=== PATIENT | female | born 1935 | race Caucasian/White ===

== ENCOUNTER 2017-04-16 11:24 | Day surgery (SDC) | payer MEDICARE, OTHER ==
[2017-04-15 09:08] VITALS: BMI 22.1
[2017-04-16] MEDS ORDERED: Propofol 500 MG/50 ML VIAL ONE (12:19)
--- OUTSIDE RECORDS SUMMARY | 2017-04-16 12:19 | XMS | Clinical Summary ---
:1935 Author Organization [facility] Address [address] [place] [address] Phone Care Team Providers Name Role Phone , Primary Care Provider Unavailable Allergies Active Allergy Reactions Severity Noted Date Comments Amoxicillin-Pot Clavulanate Rash Low 01/09/2017 Sulfamethoxazole-Trimethoprim Rash Low 01/09/2017 Ciprofloxacin Rash Low 01/09/2017 Miscellaneous Medical Supply Rash Low 01/09/2017 Surgical tape Current Medications Prescription Sig. Disp. Refills Start Date End Date Status amLODIPine (NORVASC) 5 MG Take 5 mg by mouth Active tablet daily. propranolol (INDERAL) 10 Take 10 mg by mouth Active MG tablet 2 (two) times daily. cloNIDine HCl (CATAPRES) Take 0.1 mg by Active 0.1 MG tablet mouth nightly. sucralfate (CARAFATE) 100 Take 1 g by mouth Active mg/mL suspension as needed. anastrozole (ARIMIDEX) 1 Take 1 mg by mouth Active mg tablet daily. alendronate (FOSAMAX) 35 Take 35 mg by mouth Active MG tablet every 7 days Take in the morning with a full glass of water, on an empty stomach, and do not take anything else by mouth or lie down for the next 30 min. . cyanocobalamin (VITAMIN Take 1,000 mcg by Active B-12) 1000 MCG tablet mouth daily. levothyroxine (SYNTHROID, Take 25 mcg by Active LEVOTHROID) 25 MCG tablet mouth Every morning on an empty stomach. Active Problems Problem Noted Date Bezoar 01/09/2017 RUQ pain 01/09/2017 Abnormal finding on imaging 01/09/2017 Gastric mass 01/09/2017 Encounters Date Type Specialty Care Team Description 02/06/2017 Procedure Pass Gastroenterology from Last 3 Months Social History Tobacco Use Types Packs/Day Years Used Date Never Smoker Alcohol Use Drinks/Week oz/Week Comments No Sex Assigned at Date Recorded Not on file Last Filed Vital Signs Vital Sign Reading Time Taken Blood Pressure 140/72 01/13/2017 6:00 PM CDT Pulse 71 01/13/2017 6:00 PM CDT Temperature 36.1 C (96.9 F) 01/13/2017 6:00 PM CDT Respiratory Rate 18 01/13/2017 6:00 PM CDT Oxygen Saturation 96% 01/13/2017 6:00 PM CDT Inhaled Oxygen Concentration - - Weight 71.3 kg (157 lb 1.6 oz) 01/09/2017 8:40 PM CDT Height 176.8 cm (5' 9.6") 01/09/2017 8:40 PM CDT Body Mass Index 22.8 01/09/2017 8:40 PM CDT Plan of Treatment Not on file Results Not on filefrom Last 3 Months
[2017-04-16 12:40] LABS: Hematocrit 37.3 % (36.0-47.0); Red Blood Cell (RBC) Count 4.01 mill/uL (4.20-5.40); White Blood Cell (WBC) Count 4.8 thou/uL (4.8-10.8)
[2017-04-16] MEDS ORDERED: Bupivacaine HCl 0.5%/Epinephrine 1:200,000/PF 30 ml Vial ONE (12:46)
[2017-04-16 12:54] LABS: Band 1 % (5-11); Neutrophil 78 % (42-75)
[2017-04-16] MEDS ORDERED: Levofloxacin 500 mg/D5W 100 ml Premix Bag ONE (13:09)
[2017-04-16] MEDS ORDERED: Fentanyl 100 MCG/2 ML VIAL ONE (13:22)
[2017-04-16] MEDS ORDERED: Propofol 200 MG/20 ML VIAL ONE (13:25)
--- NOTE | 2017-04-16 15:46 | OP ---
DATE OF PROCEDURE: 04/16/2017 PREOPERATIVE DIAGNOSIS: Metastatic lobular breast carcinoma to the abdomen. POSTOPERATIVE DIAGNOSIS: Metastatic lobular breast carcinoma to the abdomen. PROCEDURE PERFORMED: Tunneled central line with subcutaneous port (MediPort). CT injectable. SURGEON: Dr. De Guzman. ANESTHESIA: General. ESTIMATED BLOOD LOSS: Minimal. COMPLICATIONS: None. SPECIMEN: None. TECHNIQUE: The patient was taken to the operating room and placed on supine table. After sedation was obtained, bilateral neck and chest were prepped and draped in a sterile fashion. Local anesthet ic infiltrated over the right internal jugular vein. Internal jugular vein cannulated using a 22-ga uge finder needle followed by a Seldinger needle. Wire was passed into the superior vena cava under fluoroscopic guidance. A small eva was made at the wire entrance site. A separate 3-cm incision was made in the right upper chest below the clavicle. Subcutaneous pocket made below the lower inci александр. Tubing for the MediPort tunneled from the inferior to the superior incision. Introducer baker th was placed over the wire into the superior vena cava under fluoroscopic guidance. The dilator an d wire were removed. The end of the catheter threaded into the sheath and the sheath is peeled away . The tip of the catheter was at the atriocaval junction. MediPort tubing is cut to fit the MediPo rt at the lower incision, connected to the MediPort. The MediPort sewn to the chest wall in the sub cutaneous pocket using Prolene. MediPort flushes and draws blood without difficulty. It is flushed with a heparin flush. All wounds are irrigated and closed using 3-0 Vicryl, 4-0 Monocryl, and Derm abond. The patient was en route to recovery in stable condition. All instrument counts, needle cou nts, and lap counts were correct.
--- NOTE | 2017-04-16 16:32 | RAD ---
ONE VIEW CHEST: Comparison: 04-03-17 History: Evaluate Mediport placement. FINDINGS: Portable upright chest demonstrates a right sided Mediport catheter with the distal tip presumed to be in the region of the superior vena cava. No evidence for pneumothorax. There is atherosclerosis and elongation of the aorta. Normal cardiac silhouette. Pulmonary vessels a nd hilum are normal. Right costophrenic angle and left costophrenic angle are blunting. Patchy inter stitial opacity lung base due to chronic change. There is hyperinflation. No osseous abnormality. IMPRESSION: 1. Right sided Mediport catheter as detailed. No definite pneumothorax. 2. Chronic change in the lung parenchyma. 3. COPD/hyperinflation. POS: [facility]
== END 2017-04-16 15:35 | disposition home or self-care (01) ==
LOC: SDC 11:24
PROVIDERS: ATTEND Surgery
PROC: 0JH63XZ Insertion of Tunneled Vascular Access Device into Chest Subcutaneous Tissue and Fascia, Percutaneous Approach (ICD-10-PCS; principal; 2017-04-16)
DX: C50.912 Malignant neoplasm of unspecified site of left female breast (principal); C79.89 Secondary malignant neoplasm of other specified sites; K31.1 Adult hypertrophic pyloric stenosis; F32.9 Major depressive disorder, single episode, unspecified; R94.5 Abnormal results of liver function studies; Z90.12 Acquired absence of left breast and nipple; Z98.890 Other specified postprocedural states; M06.9 Rheumatoid arthritis, unspecified; I48.91 Unspecified atrial fibrillation; H91.93 Unspecified hearing loss, bilateral; Z79.52 Long term (current) use of systemic steroids; Z79.899 Other long term (current) drug therapy; Z88.0 Allergy status to penicillin; Z88.8 Allergy status to other drugs, medicaments and biological substances; Z88.1 Allergy status to other antibiotic agents; Z88.2 Allergy status to sulfonamides; Z91.048 Other nonmedicinal substance allergy status; Z97.4 Presence of external hearing-aid; Z90.49 Acquired absence of other specified parts of digestive tract; Z90.722 Acquired absence of ovaries, bilateral; Z90.79 Acquired absence of other genital organ(s); Z90.710 Acquired absence of both cervix and uterus; Z98.49 Cataract extraction status, unspecified eye; Z87.440 Personal history of urinary (tract) infections; Z92.3 Personal history of irradiation; Z83.3 Family history of diabetes mellitus; Z80.0 Family history of malignant neoplasm of digestive organs
CPT/HCPCS: 36561; 71010; 85025; C1788; J0670; J1642; J1956; J2704; J3010

== ENCOUNTER 2017-05-10 12:49 | Inpatient (IN) | payer MEDICARE, OTHER ==
[~2017-05-10 12:49] MED LIST: ISOVUE-370 76%-LOCM 1 ML ONE
[2017-05-10 13:28] LABS: #Lymphocytes 0.5 thou/uL (1.20-3.40); #Monocytes 0.2 thou/uL (0.11-0.59); #Neutrophils 4.1 thou/uL (1.40-6.50); %Eosinophils 0.2 % (0.0-10.0); %Lymphocytes 10.9 % (21.0-51.0); %Monocytes 3.7 % (0.0-10.0); Hematocrit 33.6 % (36.0-47.0); Mean Platelet Volume 7.5 fL (7.4-10.4); Red Blood Cell (RBC) Count 3.56 mill/uL (4.20-5.40); White Blood Cell (WBC) Count 4.8 thou/uL (4.8-10.8)
[2017-05-10 13:50] LABS: ALT (SGPT) 61 U/L (8-55); AST (SGOT) 23 U/L (5-34); Alkaline Phosphatase 125 U/L (40-150); Anion Gap 13 mmol/L (10-20); BUN (Urea Nitrogen) 19 mg/dL (9.8-20.1); Bilirubin, Total 0.6 mg/dL (0.2-1.2); Calc. Creatinine Clearance 0 mL/min (70-130); Carbon Dioxide 26 mmol/L (23-31); Chloride 93 mmol/L (98-107); Estimated GFR-MDRD Greater than 90; Globulin 2.1 g/dL (2.4-3.5); Protein, Total 5.1 g/dL (6.0-8.3)
[2017-05-10 14:01] LABS: Troponin I 0.012 ng/mL (< 0.028)
--- NOTE | 2017-05-10 14:14 | RAD ---
CHEST 1 VIEW: HISTORY: Syncope. Chest pain. COMPARISON: 04/16/17. FINDINGS: Cardiac silhouette is magnified by projection. Pulmonary vasculature is unremarkable. Mediastinum is midline. Right-sided Port-A-Cath remains in place. There is no confluent airspace consolidation or evidence of pneumothorax. packaging assembler leads overlie the chest. IMPRESSION: Chronic-type findings are stable. POS: [facility]
[2017-05-10 14:52] LABS: Bilirubin Negative (Negative); Blood, Urine Negative (Negative); Glucose, Urine (Dipstick) Negative (Negative); Ketone, Urine Negative (Negative); Nitrite Negative (Negative); Protein, Urine (Dipstick) Trace mg/dL (Neg-Trace); Urobilinogen 0.2 mg/dL (0.2-1.0)
[2017-05-10 14:54] LABS: Bacteria/HPF 4+ HPF (None Seen); Hyaline Casts/LPF 4-6 HYALINE CAST LPF (0-3 Hyaline)
--- NOTE | 2017-05-10 15:08 | CT ---
CT HEAD NONCONTRAST: HISTORY: Syncope. FINDINGS: There is no evidence of acute intracranial hemorrhage or infarct. Chronic ischemic small-vessel dis ease is apparent within the periventricular white matter of each cerebral hemisphere and the basal g anglia. There is no mass effect or shift of midline structures. The ventricles appear normal in si ze, shape, and position. IMPRESSION: No acute intracranial abnormalities are demonstrated on noncontrast CT head. POS: [facility]
[2017-05-10 15:09] LABS: RBC/HPF 0-3 HPF (0-3)
[2017-05-10 15:10] LABS: Renal Epithelial None Seen HPF (0-3); Transitional Epithelial NONE SEEN HPF (0-3); Yeast-All Forms None Seen HPF (None Seen)
--- NOTE | 2017-05-10 15:14 | CT ---
CT ARTERIOGRAM CHEST WITH IV COTNRAST AND 3D MIP IMAGING: HISTORY: Syncope. FINDINGS: There is good contrast opacification of the pulmonary arteries and thoracic aorta with normal branch ing of the great vessels. Mild atelectasis is present within each lung. Within the partially visua lized upper abdomen, a small amount of free fluid is apparent. There are degenerative changes of th e thoracic spine. IMPRESSION: 1. No CT evidence of pulmonary embolus. 2. Free fluid within the abdomen appears to have increased since the 02/04/17 CT exam. POS: [facility]
[2017-05-10] MEDS ORDERED: Metoprolol Tartrate 50 MG TAB ONE (15:40)
[2017-05-10] MEDS ORDERED: Sodium Chloride 0.9% 100 ML ONE (15:40)
[2017-05-10] MEDS ORDERED: cefTRIAXone\\ROCEPHIN 1 GM VIAL ONE (15:40)
--- NOTE | 2017-05-10 19:09 | HP ---
CHIEF COMPLAINT: Near syncopal episode. HISTORY OF PRESENT ILLNESS: This is an 82-year-old pleasant lady who was recently discharged from [facility] after being treated for atrial fibrillation with RVR who comes back to the hospital with near syncopal episode. She never lost consciousness. There was no chest pain, shortness of breath before the episode. No seizure-like activity. The patient got up to go to the bathroom, but felt extremely weak and fell to the door, her daughter helped , and she called the paramedics as she could not do so. The patient of note has breast cancer status post surgery, treated with radiation and is currently on chemotherapy every Friday. She denies any headache, slurred speech. The darren ent's family was concerned and hence she was brought to the hospital for evaluation and treatment. The patient states that she has chemotherapy on Friday and feels extremely weak on Friday, but T , Friday, she was doing well till this episode happened today at around 12:00 p.m. PAST MEDICAL HISTORY: Significant for breast cancer, on chemotherapy, status post radiation; hyperl ipidemia, hypertension, some arthritis, atrial fibrillation. Dr. Landin is the aerial lineman. Dr Christos Serra is the primary care physician. PAST SURGICAL HISTORY: Significant for recent MediPort placement during the last month in the month of March I believe, PICC line removal, history of mastectomy, left shoulder surgery. SOCIAL HISTORY: Does not smoke, drink or do recreational drugs. FAMILY HISTORY: Negative for diabetes and hypertension. MEDICATIONS: Please see MAR. ALLERGIES: Include ADHESIVE, AMOXICILLIN, AUGMENTIN, CIPRO, CIPROFLOXACIN, SULFA, and TRIMETHOPRIM. REVIEW OF SYSTEMS: Significant for weakness, otherwise no fever, no chills, no headache, no appetit e, no hearing loss, no latencies. No cough, no chest pain, diarrhea, dysuria or polyuria. No memor y or mood changes. No neck pain. PHYSICAL EXAMINATION: VITAL SIGNS: Blood pressure is 103/72, heart rate is 105, temperature 99.4, afebrile, breathing at 18 breaths per minute. GENERAL: Patient is lying in bed in no apparent distress. HEENT: Atraumatic and normocephalic. Pupils equal, round, react to light. Extraocular muscles int act. Mucous membranes moist. NECK: Supple. No JVD. CHEST: Breath sounds are noted. There are no rales or rhonchi. HEART: S1, S2 normal. Irregularly irregular rhythm. ABDOMEN: Soft, obese. EXTREMITIES: No cyanosis, clubbing, edema. Distal pulses present. NEUROLOGIC: Grossly nonfocal, reflexes present and normal sensations. LABORATORY DATA: CT angiogram ruled out PE. CT head was negative. UA showed 4-6 WBCs, nitrite was negative. WBC count was 4.8, creatinine 11, potassium is 3.5, creatinine is 0.6, hemoglobin was 11 , glucose was 171. ASSESSMENT AND PLAN: 1. Near syncopal episode with generalized weakness, possible causes could be side effects of blood pressure medications, we will do orthostatic vitals. 2. The patient has not been on anticoagulation because of nosebleeds in the face of atrial fibrilla tion. We will do MRI to rule out any CORPORATE SECRETARY causes. We will consult Cardiology to optimize medication s for the heart. 3. Atrial fibrillation. We will monitor her this hospital stay. 4. Hyperlipidemia, stable. 5. Hypertension, stable. 6. Hyponatremia. We will gently hydrate the patient, moderate malnutrition. We will encourage the patient to eat more. 7. Hypothyroidism was stable. 8. Breast cancer status post radiation and surgery, on chemotherapy. We will continue dexamethason e from the home medications. We will hold Cymbalta. We will hold citalopram for now. 9. Sequential compression devices for deep venous thrombosis prophylaxis. I will work with consult alonso for further caring for the patient.
[2017-05-10] MEDS ORDERED: Calcium Carbonate 500 MG ChewTAB PO PRN (20:15)
[2017-05-10] MEDS ORDERED: Ondansetron HCl/PF 4 MG/2 ML Vial IVP PRN (20:15)
[2017-05-10] MEDS: Docusate 100 MG CAP PO SCH (21:17)
[2017-05-10] MEDS: Sodium Chloride 0.9% 1,000 ML IV SCH (21:23)
[2017-05-11] MEDS: Levothyroxine Sodium 25 MCG TAB PO SCH (06:03)
[2017-05-11 07:09] LABS: Anion Gap 7 mmol/L (10-20); BUN (Urea Nitrogen) 11 mg/dL (9.8-20.1); BUN/Creatinine Ratio 23.91; Calc. Creatinine Clearance 101 mL/min (70-130); Calcium 7.4 mg/dL (7.8-10.44); Carbon Dioxide 27 mmol/L (23-31); Chloride 100 mmol/L (98-107); Estimated GFR-MDRD Greater than 90; Phosphorus 2.2 mg/dL (2.3-4.7)
[2017-05-11] MEDS: Dexamethasone 4 MG TAB PO SCH (08:42)
[2017-05-11] MEDS: Docusate 100 MG CAP PO SCH ×2 (08:42→19:29)
[2017-05-11] MEDS ORDERED: FLU VACC TS2017-18 (>65YR) 0.5 ML SYRINGE IM ONE (09:00)
[2017-05-11] MEDS: Enoxaparin Sodium 30 MG/0.3 ML SYRINGE SC SCH (10:13)
[2017-05-11] MEDS: Sodium Chloride 0.9% 1,000 ML IV SCH (11:09)
[2017-05-11] MEDS ORDERED: Potassium Chloride 20 MEQ TAB PO SCH (11:15)
--- NOTE | 2017-05-11 11:18 | MRI ---
PRE AND POSTCONTRAST ENHANCED MRI IMAGES OF BRAIN: DATE: 05/11/17. HISTORY: Syncope. The patient has a history of lung cancer. COMPARISON: Comparison is made to a previous exam from August 28, 2016. FINDINGS: Multiplanar, multisequence pre- and postcontrast-enhanced MRI images of the brain are obtained. Images demonstrate some diffuse cortical atrophy and deep white matter ischemic changes. Small basa l ganglion areas of lacunar infarction seen. These appear to be old. No acute infarctions or abnor malities seen. No evidence of areas of diffusion restriction seen. No evidence of abnormal intracr anial contrast enhancement seen. IMPRESSION: Stable pre- and postcontrast-enhanced MRI images of the brain. POS: [facility]
--- NOTE | 2017-05-11 16:55 | CON ---
CARDIOLOGY CONSULTATION NOTE DATE OF CONSULTATION: 05/11/2017 INDICATION FOR CONSULTATION: An 82-year-old female with lightheadedness and near syncopal episode w ith history of atrial fibrillation. HISTORY OF PRESENT ILLNESS: This is a very pleasant 82-year-old female who has been followed by Dr. Landin, was recently seen in the hospital and treated for atrial fibrillation with rapid ventric ular response. She came back to the hospital again and was noted to have a near syncopal episode, w hich she says actually just became very lightheaded and lost her balance and then fell. She did not lose consciousness. She has had no syncopal episodes. She denies any significant symptoms prior t o the event. She felt just somewhat weak. She has had some recent chemotherapy and she says she cantrell s extremely been feeling very weak since that time, but has had no complaints of significant shortne ss of breath or chest pain. Monitor since being here the telemetry as well as her EKG shows atrial fibrillation with rapid ventricular response. Heart rate is somewhat better controlled in the 90s. PAST MEDICAL HISTORY: Significant for breast cancer for which she is taking chemotherapy and she cantrell s also had radiation therapy. She has hypertension, arthritis and hyperlipidemia. She has had a hi story of atrial fibrillation in the past. This is not a new finding for her. ALLERGIES: She is allergic to ADHESIVE, AMOXICILLIN, AUGMENTIN, CIPROFLOXACIN, SULFA and TRIMETHOPR IM. FAMILY HISTORY: Unremarkable for any early heart disease. SOCIAL HISTORY: There is a history of alcohol or tobacco abuse. MEDICATIONS PRIOR TO ADMISSION: Included a lidocaine patch, Tirosint, B12, Centrum Silver, vitamins , cranberry probiotic , alendronate 180 mg, citalopram, dexamethasone, calcium, hydrocodone, hydroco done/APAP, Zofran and vitamin D3 as well as metoprolol. REVIEW OF SYSTEMS: She mainly complained of weakness and occasional lightheadedness, but she denied any chest pain or significant shortness of breath. She had no GI complaints until the day she had some mild diarrhea after having lunch today. She had no complaints. She had no lower extremity complaints. She was found; however, to have a major urinary tract infection according to the UA, bu t did not have any symptoms associated with that. PHYSICAL EXAMINATION: GENERAL: Reveals an elderly and somewhat ill-appearing female who is in no acute distress. VITAL SIGNS: Her blood pressure is 119/76, heart rate is 91 and irregular and respiratory rate is 1 6. She is afebrile. HEENT: Shows the head to be normocephalic and atraumatic. Carotid pulses are present. I did not h ear any bruits. CHEST: Clear to auscultation without rales, rhonchi or wheezing. CARDIOVASCULAR: She has an irregularly irregular rhythm. I did not hear any significant murmurs. ABDOMEN: Soft and nontender with positive bowel sounds. No organomegaly or masses are noted. EXTREMITIES: Showed no clubbing, cyanosis or edema. Pedal pulses are present, but seemed to be connie ewhat decreased. NEUROLOGIC: The patient is intact. She did not get out of bed. She does appear to be significantl y fatigued. SKIN: Warm and dry at this time. LABORATORY DATA: Shows a creatinine of 0.46. WBC of 4.8, hemoglobin 11.4. Potassium is 3.3. Urin karen tract showed 4+ bacteria. IMPRESSION: 1. Atrial fibrillation with rapid ventricular response. She will continue her medications for rate control. She has not been on any anticoagulation or any oral anticoagulation as far as the atrial fibrillation is concerned. It was suggested previously that she stay on aspirin. She has had some problems with chronic nosebleeds in the past. 2. Possible near syncopal episode, but the patient denied to me after further questioning that she did not feel that lightheaded, she just lost her balance and then fell to the floor, but did not hav e any syncopal episodes. 3. Breast cancer for which she is undergoing chemotherapy. [facility] 4. Hyperlipidemia. She will remain on her medications and stable. 5. Hypertension. This also was under very good control at this time. 6. Hypothyroidism. She will continue her medications. At this time, from a cardiac standpoint, adeel davenport is doing very well. We will monitor her to see whether or not she has any significant tachycardia , more so than usual with her atrial fibrillation or if she has any pauses, it would indicate possib le underlying sick sinus syndrome.
--- NOTE | 2017-05-11 17:17 | PDOC.PN ---
- Subjective Encounter Start Date: 05/11/17 Encounter Start Time: 17:15 Patient seen and examined. No new complaints. No overnight events - Objective MAR Reviewed: Yes Vital Signs & Weight: Vital Signs (12 hours) Temp Pulse Resp BP BP BP BP 05/11/17 16:00 97.5 F L 97 16 119/77 109/65 112/73 05/11/17 12:00 97.4 F L 91 16 119/74 05/11/17 08:00 97.3 F L 96 16 128/74 Pulse Ox 05/11/17 16:00 93 L 05/11/17 12:00 92 L 05/11/17 08:00 97 Weight Admit Weight 147 lb Weight 147 lb I&O: 05/10/17 05/11/17 05/12/17 06:59 06:59 06:59 Intake Total 885 Balance 885 Result Diagrams: 05/10/17 13:20 05/11/17 06:01 Phys Exam - Physical Examination Constitutional: NAD HEENT: PERRLA Neck: no JVD Respiratory: no rales Cardiovascular: irregular Gastrointestinal: no distention Musculoskeletal: pulses present Neurological: moves all 4 limbs Psychiatric: A&O x 3 Dx/Plan (1) Physical deconditioning Code(s): R53.81 - OTHER MALAISE Status: Acute (2) Afib Code(s): I48.91 - UNSPECIFIED ATRIAL FIBRILLATION Status: Acute Comment: no anticoaulation due to nose bleeds (3) Hypothyroidism Code(s): E03.9 - HYPOTHYROIDISM, UNSPECIFIED Status: Acute (4) Metastatic breast cancer Code(s): C50.919 - MALIGNANT NEOPLASM OF UNSP SITE OF UNSPECIFIED FEMALE BREAST Status: Acute (5) Near syncope Status: Acute - Plan * monitor tele * pt/ot * cont current meds
[2017-05-12] MEDS: Sodium Chloride 0.9% 1,000 ML IV SCH (03:00)
[2017-05-12] MEDS: Levothyroxine Sodium 25 MCG TAB PO SCH (05:25)
[2017-05-12 06:13] LABS: Anion Gap 10 mmol/L (10-20); BUN (Urea Nitrogen) 11 mg/dL (9.8-20.1); Calc. Creatinine Clearance 99 mL/min (70-130); Calcium 7.7 mg/dL (7.8-10.44); Carbon Dioxide 26 mmol/L (23-31); Chloride 101 mmol/L (98-107); Estimated GFR-MDRD Greater than 90
[2017-05-12 06:14] LABS: Phosphorus 1.9 mg/dL (2.3-4.7)
[2017-05-12] MEDS: Dexamethasone 4 MG TAB PO SCH (09:01)
[2017-05-12] MEDS: Docusate 100 MG CAP PO SCH ×2 (09:02→21:50)
[2017-05-12] MEDS: Enoxaparin Sodium 30 MG/0.3 ML SYRINGE SC SCH (09:02)
[2017-05-12] MEDS ORDERED: Sodium Chloride 0.9% 1,000 ML IV SCH (10:04)
[2017-05-12] MEDS ORDERED: Vancomycin HCl 1 GM in Premix Bag 1 BAG IVPB SCH (10:15)
[2017-05-12] MEDS: Vancomycin HCl 1 GM in Premix Bag 1 BAG IVPB SCH ×2 (11:58→23:05)
--- NOTE | 2017-05-12 12:43 | PDOC.PN ---
- Subjective Encounter Start Date: 05/12/17 Encounter Start Time: 12:40 feels better no n/v no f/c - Objective MAR Reviewed: Yes Vital Signs & Weight: Vital Signs (12 hours) Temp Pulse Pulse Pulse Pulse Pulse Pulse 05/12/17 11:55 98.4 F 103 H 05/12/17 08:58 95 101 H 94 108 H 95 05/12/17 08:00 98.6 F 95 05/12/17 03:18 97 Resp BP BP BP BP BP BP 05/12/17 11:55 16 05/12/17 08:58 127/78 119/65 107/64 114/59 L 129/69 05/12/17 08:00 16 05/12/17 03:18 16 114/69 BP Pulse Ox Pulse Ox Pulse Ox 05/12/17 11:55 118/81 92 L 05/12/17 08:58 98 100 05/12/17 08:00 127/78 94 L 05/12/17 03:18 Weight Admit Weight 147 lb Weight 147 lb I&O: 05/11/17 05/12/17 05/13/17 06:59 06:59 06:59 Intake Total 885 1620 Balance 885 1620 Result Diagrams: 05/10/17 13:20 05/12/17 05:04 Phys Exam - Physical Examination Constitutional: NAD HEENT: PERRLA Neck: no JVD Respiratory: no rales Cardiovascular: no significant murmur Gastrointestinal: no distention Musculoskeletal: pulses present Neurological: moves all 4 limbs Psychiatric: A&O x 3 Dx/Plan (1) UTI (urinary tract infection) due to Enterococcus Code(s): N39.0 - URINARY TRACT INFECTION, SITE NOT SPECIFIED; B95.2 - ENTEROCOCCUS THE CAUSE OF DISEASES CLASSIFIED ELSEWHERE Status: Acute (2) Physical deconditioning Code(s): R53.81 - OTHER MALAISE Status: Acute (3) Afib Code(s): I48.91 - UNSPECIFIED ATRIAL FIBRILLATION Status: Acute Comment: no anticoaulation due to nose bleeds (4) Hypothyroidism Code(s): E03.9 - HYPOTHYROIDISM, UNSPECIFIED Status: Acute (5) Metastatic breast cancer Code(s): C50.919 - MALIGNANT NEOPLASM OF UNSP SITE OF UNSPECIFIED FEMALE BREAST Status: Acute (6) Near syncope Status: Acute (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 if doing well may d/c on po zyvox in am * afib with rvr- rate controlled. no anticoag due to nose bleeds * mri brain wnl * possible d/c in am if stronger * replace phos and monitor
--- NOTE | 2017-05-12 16:28 | PDOC.CTH ---
<Althea Romo - Last Filed: 05/12/17 16:25> Cardiology Progress Note - Subjective The pt was seen and examined. No overnight events. No cardiac complaints. She still complains of light SEALS. 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 - Objective Vital Signs Temp Pulse Pulse Pulse Pulse Pulse Pulse 05/12/17 15:53 97.8 F 73 05/12/17 11:55 98.4 F 103 H 05/12/17 08:58 95 101 H 94 108 H 95 05/12/17 08:00 98.4 F 103 H Resp BP BP BP BP BP BP 05/12/17 15:53 18 119/56 L 05/12/17 11:55 16 118/81 05/12/17 08:58 127/78 119/65 107/64 114/59 L 129/69 05/12/17 08:00 16 127/78 Pulse Ox Pulse Ox Pulse Ox 05/12/17 15:53 94 L 05/12/17 11:55 92 L 05/12/17 08:58 98 100 05/12/17 08:00 94 L Admit Weight 147 lb Weight 147 lb 05/11/17 05/12/17 05/13/17 06:59 06:59 06:59 Intake Total 885 1620 Balance 885 1620 - Physical Examination General/Neuro: alert & oriented x3 Neck: no JVD present Lungs: CTA Heart: other: (irregular) Extremities: other: (No edema) - Telemetry Telemetry Rhythm: Afib - Labs Result Diagrams: 05/10/17 13:20 05/12/17 05:04 Troponin/CKMB CK-MB (CK-2) 1.1 ng/mL (0-6.6) 05/10/17 13:20 Troponin I 0.012 ng/mL (< 0.028) 05/10/17 13:20 - Assessment/Plan 1. Near syncope - No Bradycardia episodes on Tele record at this moment; cont. monitor on tele 2. Afib - HR has been 70-100s with Diltiazem 180mg dialy;Lovenox 30mg daily; no anticoaulation due to nose bleeds; cont. monitor on tele 3. UTI - on IV antibiotic; managed by PCP 4. HTN - stable with current medicaiton 5. Metastatic breast cancer with Chemo and radiation MAR reviewed <Jassi Kaplan - Last Filed: 05/12/17 16:59> Cardiology Progress Note - Objective Vital Signs Temp Pulse Pulse Pulse Pulse Pulse Pulse 05/12/17 15:53 98.9 F 105 H 05/12/17 11:55 98.4 F 103 H 05/12/17 08:58 95 101 H 94 108 H 95 05/12/17 08:00 98.4 F 103 H Resp BP BP BP BP BP BP 05/12/17 15:53 18 119/56 L 05/12/17 11:55 16 118/81 05/12/17 08:58 127/78 119/65 107/64 114/59 L 129/69 05/12/17 08:00 16 127/78 Pulse Ox Pulse Ox Pulse Ox 05/12/17 15:53 93 L 05/12/17 11:55 92 L 05/12/17 08:58 98 100 05/12/17 08:00 94 L Admit Weight 147 lb Weight 147 lb 05/11/17 05/12/17 05/13/17 06:59 06:59 06:59 Intake Total 885 1620 Balance 885 1620 - Labs Result Diagrams: 05/10/17 13:20 05/12/17 05:04 Troponin/CKMB CK-MB (CK-2) 1.1 ng/mL (0-6.6) 05/10/17 13:20 Troponin I 0.012 ng/mL (< 0.028) 05/10/17 13:20 - Assessment/Plan Pt. seen and evaluated by me. I agree with the A/P by the [facility]. The HR is still elevated with the AFib. I will add digoxin.
[2017-05-12] MEDS ORDERED: Digoxin 0.5 MG/2 ML AMP SLOW IVP SCH (17:00)
[2017-05-12] MEDS: Digoxin 0.5 MG/2 ML AMP SLOW IVP SCH (23:02)
[2017-05-13] MEDS: Digoxin 0.5 MG/2 ML AMP SLOW IVP SCH (05:54)
[2017-05-13] MEDS: Levothyroxine Sodium 25 MCG TAB PO SCH (05:56)
[2017-05-13 06:18] LABS: #Eosinphils 0.1 thou/uL (0.0-0.7); #Lymphocytes 0.7 thou/uL (1.20-3.40); #Monocytes 0.3 thou/uL (0.11-0.59); #Neutrophils 3.9 thou/uL (1.40-6.50); %Basophils 0.3 % (0.0-1.0); %Eosinophils 1.2 % (0.0-10.0); %Lymphocytes 14.7 % (21.0-51.0); Hematocrit 30.3 % (36.0-47.0); Mean Platelet Volume 7.5 fL (7.4-10.4)
[2017-05-13 06:56] LABS: Anion Gap 9 mmol/L (10-20); BUN (Urea Nitrogen) 11 mg/dL (9.8-20.1); Calc. Creatinine Clearance 99 mL/min (70-130); Calcium 7.7 mg/dL (7.8-10.44); Carbon Dioxide 26 mmol/L (23-31); Chloride 100 mmol/L (98-107); Estimated GFR-MDRD Greater than 90
[2017-05-13 07:04] LABS: Phosphorus 1.9 mg/dL (2.3-4.7)
[2017-05-13] MEDS: cefTRIAXone\\ROCEPHIN 1 GM in Sodium Chloride 0.9% 100 ML IVPB SCH (10:01)
[2017-05-13] MEDS: Enoxaparin Sodium 30 MG/0.3 ML SYRINGE SC SCH (10:01)
[2017-05-13] MEDS: Digoxin 0.125 MG TAB PO SCH (10:02)
[2017-05-13] MEDS: Dexamethasone 4 MG TAB PO SCH (10:02)
[2017-05-13] MEDS: Docusate 100 MG CAP PO SCH ×2 (10:03→21:36)
[2017-05-13] MEDS: K-Phos Neutral 250 MG TAB PO SCH (10:03)
[2017-05-13] MEDS ORDERED: Magnesium Sulfate 1 GM, Admixture Fee 1 EACH in Sodium Chloride 0.9% 100 ML IVPB SCH (10:15)
[2017-05-13] MEDS ORDERED: Loperamide HCl 2 MG CAP PO PRN (17:27)
--- NOTE | 2017-05-13 18:18 | PDOC.PN ---
- Subjective Encounter Start Date: 05/13/17 Encounter Start Time: 11:00 Patient seen and examined. No new complaints. No overnight events - Objective MAR Reviewed: Yes Vital Signs & Weight: Vital Signs (12 hours) Temp Pulse Resp BP BP BP BP 05/13/17 16:00 97.8 F 113 H 18 103/57 L 05/13/17 10:02 103 H 05/13/17 08:00 98.3 F 103 H 18 116/68 110/68 95/56 L 114/68 Pulse Ox 05/13/17 16:00 05/13/17 10:02 05/13/17 08:00 93 L Weight Admit Weight 147 lb Weight 147 lb 8 oz I&O: 05/12/17 05/13/17 05/14/17 06:59 06:59 06:59 Intake Total 1620 3391 Output Total 2475 Balance 1620 916 Result Diagrams: 05/13/17 05:50 05/13/17 05:50 EKG Reviewed by me: Yes (Tele Afib) Phys Exam - Physical Examination Constitutional: NAD Respiratory: no wheezing, no rhonchi Cardiovascular: no rub, irregular Gastrointestinal: soft, non-tender, positive bowel sounds Musculoskeletal: no edema Neurological: moves all 4 limbs Dx/Plan (1) Near syncope Status: Acute (2) UTI (urinary tract infection) Status: Acute (3) Electrolyte abnormality Code(s): E87.8 - OTH DISORDERS OF ELECTROLYTE AND FLUID BALANCE, NEC Status: Acute Comment: hypophosphatemiam hypomagnessemia (4) Chronic a-fib Code(s): I48.2 - CHRONIC ATRIAL FIBRILLATION Status: Chronic (5) Other issues per previous notes - Plan cont current plan of care, PT/OT, DVT proph w/lovenox, DVT proph w/SCDs * DC Vancomycin ( No enterococcus in urine culture) * Start Ceftriaxone * Replace Phosphorus * 1 gm Magnessium x 1 * Cont other meds as below - rate controlled on current regimen - Toprol XL on hold due to low BP * on Digoxin * AM labs * Cardio following Laboratory Tests 05/13/17 05:50 Phosphorus 1.9 L Review of Systems - Review of Systems Constitutional: negative: Fever, Chills, Sweats, Weakness, Malaise, Other Respiratory: negative: Cough, Dry, Shortness of Breath, Hemoptysis, SOB with Excertion, Pleuritic Pain, Sputum, Wheezing Cardiovascular: negative: Chest Pain, Palpitations, Orthopnea, Paroxysmal Noc. Dyspnea, Edema, Light Headedness, Other Gastrointestinal: negative: Nausea, Vomiting, Abdominal Pain, Diarrhea, Constipation, Melena, Hematochezia, Other - Medications/Allergies Allergies/Adverse Reactions: Allergies Allergy/AdvReac Type Severity Reaction Status Date / Time adhesive Allergy Rash Verified 05/10/17 20:01 amoxicillin trihydrate Allergy Rash Verified 05/10/17 20:01 [From Augmentin] ciprofloxacin [From Cipro] Allergy Rash Verified 05/10/17 20:01 ciprofloxacin HCl Allergy Rash Verified 05/10/17 20:01 [From Cipro] potassium clavulanate Allergy Rash Verified 05/10/17 20:01 [From Augmentin] sulfamethoxazole Allergy Rash Verified 05/10/17 20:01 [From Bactrim] trimethoprim [From Bactrim] Allergy Rash Verified 05/10/17 20:01 Medications: Current Medications Calcium Carbonate (Tums) 1,000 mg PO Q4H PRN PRN Reason: Heartburn or Indigestion Last Admin: 05/11/17 19:29 Dose: 1,000 mg Dexamethasone (Decadron) 2 mg PO DAILY [facility] Last Admin: 05/13/17 10:02 Dose: 2 mg Digoxin (Lanoxin) 0.125 mg PO QAM [facility] Last Admin: 05/13/17 10:02 Dose: 0.125 mg Diltiazem HCl (Cardizem Cd) 180 mg PO DAILY [facility] Last Admin: 05/13/17 10:02 Dose: 180 mg Docusate Sodium (Colace) 100 mg PO BID [facility] Last Admin: 05/13/17 10:03 Dose: Not Given Enoxaparin Sodium (Lovenox) 30 mg SC 0900 [facility] Last Admin: 05/13/17 10:01 Dose: Not Given Ceftriaxone Sodium 1 gm/ (Sodium Chloride) 100 mls @ 200 mls/hr IVPB Q24HR [facility] Last Admin: 05/13/17 10:01 Dose: 100 mls Levothyroxine Sodium (Synthroid) 25 mcg PO 0600 [facility] Last Admin: 05/13/17 05:56 Dose: 25 mcg Loperamide HCl (Imodium) 2 mg PO PRN PRN PRN Reason: Diarrhea/Loose Stools Last Admin: 10/10/17 17:49 Dose: 2 mg Miscellaneous Medication (Phos-Nak) 1 pkt PO BID [facility] Stop: 05/14/17 21:01 Last Admin: 05/13/17 10:20 Dose: Not Given Ondansetron HCl (Zofran) 4 mg IVP Q6H PRN PRN Reason: Nausea/Vomiting Sodium Chloride (Flush - Normal Saline) 10 ml IVF Q12HR [facility] Last Admin: 05/13/17 10:09 Dose: Not Given Sodium Chloride (Flush - Normal Saline) 10 ml IVF PRN PRN PRN Reason: Saline Flush
--- NOTE | 2017-05-13 18:30 | PDOC.CTH ---
Cardiology Progress Note - Subjective No current complaints. Appears weak. Pt appears to be rate controlled off of IV CCB. On CCB 180mg QAM. - Objective Vital Signs Temp Pulse Resp BP BP BP BP 05/13/17 16:00 97.8 F 113 H 18 103/57 L 05/13/17 10:02 103 H 05/13/17 08:00 98.3 F 103 H 18 116/68 110/68 95/56 L 114/68 Pulse Ox 05/13/17 16:00 05/13/17 10:02 05/13/17 08:00 93 L Admit Weight 147 lb Weight 147 lb 8 oz 05/12/17 05/13/17 05/14/17 06:59 06:59 06:59 Intake Total 1620 3391 Output Total 2475 Balance 1620 916 - Physical Examination General/Neuro: alert & oriented x3, NAD Neck: carotid US brisk, no JVD present Lungs: CTA, unlabored respirations Heart: PMI normal (IRR), other: Abdomen: no HSM, NT/ND Extremities: + femoral B (1) - Labs Result Diagrams: 05/13/17 05:50 05/13/17 05:50 Troponin/CKMB CK-MB (CK-2) 1.1 ng/mL (0-6.6) 05/10/17 13:20 Troponin I 0.012 ng/mL (< 0.028) 05/10/17 13:20 - Assessment/Plan 1. Afib-Rate controlled on cardizem 180mg QAM and digoxin. Pt t currently requiring BB treatment as she was requiring as an outpatient. Continue Abx eper Dr. Ferrell. If rate control continues overnight and anticipate a longer stay in hospital, ok to OK tele and transfer to medical.
[2017-05-14] MEDS: Levothyroxine Sodium 25 MCG TAB PO SCH (06:04)
[2017-05-14] MEDS ORDERED: Nitrofurantoin Monohyd/M-Cryst 100 MG CAP PO SCH (09:00)
[2017-05-14] MEDS: Digoxin 0.125 MG TAB PO SCH (09:39)
[2017-05-14] MEDS: Docusate 100 MG CAP PO SCH ×2 (09:40→21:03)
[2017-05-14] MEDS: Lactinex Tablet PO SCH (09:41)
[2017-05-14] MEDS: Dexamethasone 4 MG TAB PO SCH (09:42)
[2017-05-14] MEDS: cefTRIAXone\\ROCEPHIN 1 GM in Sodium Chloride 0.9% 100 ML IVPB SCH (09:43)
[2017-05-14] MEDS: Enoxaparin Sodium 30 MG/0.3 ML SYRINGE SC SCH (09:44)
--- NOTE | 2017-05-14 12:20 | PDOC.PN ---
- Subjective Encounter Start Date: 05/14/17 Encounter Start Time: 10:00 Patient seen and examined. Feels gen weak. No overnight events - Objective MAR Reviewed: Yes Vital Signs & Weight: Vital Signs (12 hours) Temp Pulse Resp BP Pulse Ox 05/14/17 09:39 113 H 05/14/17 08:58 100.6 F H 113 H 19 134/77 92 L 05/14/17 04:00 98.3 F 94 16 116/73 92 L Weight Admit Weight 147 lb Weight 147 lb 8 oz I&O: 05/13/17 05/14/17 05/15/17 06:59 06:59 06:59 Intake Total 3391 1627 Output Total 2475 850 Balance 916 777 Result Diagrams: 05/13/17 05:50 05/13/17 05:50 EKG Reviewed by me: Yes (Tele Afib) Phys Exam - Physical Examination Constitutional: NAD Respiratory: no wheezing, no rhonchi Cardiovascular: no rub, irregular Gastrointestinal: soft, non-tender, positive bowel sounds Musculoskeletal: no edema Neurological: moves all 4 limbs Dx/Plan (1) Near syncope Status: Acute Comment: multifactorial (2) UTI (urinary tract infection) Status: Acute (3) Electrolyte abnormality Code(s): E87.8 - OTH DISORDERS OF ELECTROLYTE AND FLUID BALANCE, NEC Status: Acute Comment: hypophosphatemia/ hypomagnessemia (4) Chronic a-fib Code(s): I48.2 - CHRONIC ATRIAL FIBRILLATION Status: Chronic Comment: no anticoag due to nose bleeds (5) Other issues per previous notes - Plan cont current plan of care, DVT proph w/lovenox * Resume Citalopram * Increase Dexamethasone to BID for next 2-3 days * I d/w Oncology who recommended CT Abd * Consult Palliative care * IV fluids x 1/[address] * AM labs * Cont PT * DC Tele per Cardiology * Cont Digoxin with Cardizem for rate control * Metoprolol on hold * Will probably need home O2 at dc * Will consult CM for C Review of Systems - Review of Systems Respiratory: negative: Cough, Dry, Shortness of Breath, Hemoptysis, SOB with Excertion, Pleuritic Pain, Sputum, Wheezing Cardiovascular: negative: Chest Pain, Palpitations, Orthopnea, Paroxysmal Noc. Dyspnea, Edema, Light Headedness, Other - Medications/Allergies Allergies/Adverse Reactions: Allergies Allergy/AdvReac Type Severity Reaction Status Date / Time adhesive Allergy Rash Verified 05/10/17 20:01 amoxicillin trihydrate Allergy Rash Verified 05/10/17 20:01 [From Augmentin] ciprofloxacin [From Cipro] Allergy Rash Verified 05/10/17 20:01 ciprofloxacin HCl Allergy Rash Verified 05/10/17 20:01 [From Cipro] potassium clavulanate Allergy Rash Verified 05/10/17 20:01 [From Augmentin] sulfamethoxazole Allergy Rash Verified 05/10/17 20:01 [From Bactrim] trimethoprim [From Bactrim] Allergy Rash Verified 05/10/17 20:01 Medications: Current Medications Acidophilus (Floranex) 1 tab PO DAILY [facility] Last Admin: 05/14/17 09:41 Dose: 1 tab Calcium Carbonate (Tums) 1,000 mg PO Q4H PRN PRN Reason: Heartburn or Indigestion Last Admin: 05/11/17 19:29 Dose: 1,000 mg Citalopram Hydrobromide (Celexa) 20 mg PO HS [facility] Dexamethasone (Decadron) 2 mg PO BID-WM [facility] Digoxin (Lanoxin) 0.125 mg PO QAM [facility] Last Admin: 05/14/17 09:39 Dose: 0.125 mg Diltiazem HCl (Cardizem Cd) 180 mg PO DAILY [facility] Last Admin: 05/14/17 09:44 Dose: 180 mg Docusate Sodium (Colace) 100 mg PO BID [facility] Last Admin: 05/14/17 09:40 Dose: Not Given Enoxaparin Sodium (Lovenox) 30 mg SC 0900 [facility] Last Admin: 05/14/17 09:44 Dose: Not Given Ceftriaxone Sodium 1 gm/ (Sodium Chloride) 100 mls @ 200 mls/hr IVPB Q24HR [facility] Last Admin: 05/14/17 09:43 Dose: 100 mls Levothyroxine Sodium (Synthroid) 25 mcg PO 0600 [facility] Last Admin: 05/14/17 06:04 Dose: 25 mcg Loperamide HCl (Imodium) 2 mg PO PRN PRN PRN Reason: Diarrhea/Loose Stools Last Admin: 05/13/17 17:49 Dose: 2 mg Miscellaneous Medication (Phos-Nak) 1 pkt PO BID [facility] Stop: 05/14/17 21:01 Last Admin: 05/14/17 10:10 Dose: Not Given Ondansetron HCl (Zofran) 4 mg IVP Q6H PRN PRN Reason: Nausea/Vomiting Sodium Chloride (Flush - Normal Saline) 10 ml IVF Q12HR [facility] Last Admin: 05/14/17 09:45 Dose: 10 ml Sodium Chloride (Flush - Normal Saline) 10 ml IVF PRN PRN PRN Reason: Saline Flush
[2017-05-14] MEDS ORDERED: Bisacodyl 10 MG SUPP PR PRN (12:29)
[2017-05-14] MEDS ORDERED: Acetaminophen 325 MG TAB PO PRN (12:29)
[2017-05-14] MEDS ORDERED: Sodium Chloride 0.9% 500 ML IV SCH (12:30)
[2017-05-14] MEDS: Sodium Chloride 0.9% 1,000 ML IV SCH (13:14)
[2017-05-14] MEDS: Meropenem 1 GM in Sodium Chloride 0.9% 100 ML IVPB SCH ×2 (13:34→21:03)
--- NOTE | 2017-05-14 13:44 | CT ---
CT ABDOMEN AND PELVIS WITH CONTRAST: HISTORY: Syncope. History of breast cancer. COMPARISON: 02/04/2017 TECHNIQUE: Multiple contiguous axial images were obtained in a CT of the abdomen and pelvis with contrast. Cor onal reformats were performed and p.o. contrast was administered. FINDINGS: The gallbladder is mildly distended, and there is mild central intrahepatic biliary dilatation. A s mall amount of ascites is seen in the right upper quadrant of the abdomen. No focal liver lesions a re seen. There is a collection of air adjacent to the duodenum, at the insertion of the common bile duct into the duodenum, which may represent a duodenal diverticula. This measures 1.[address] dimension. There are subcentimeter hypodensities in the left kidney, which are too small to definitely characte rize but likely represent cysts. The right kidney, adrenal glands, spleen, and pancreas are unremar kable. No free air is seen in the abdomen or pelvis. The small bowel is unremarkable. Moderate stool is s een in the colon. There may be a few small diverticula in the colon. There is stable thickening of the wall of the stomach with a more prominent area of thickening near the gastroesophageal junction , measuring 2.8 cm in size. No abdominal or pelvic lymphadenopathy is seen. The patient is status post hysterectomy. Degenerative changes are seen in the supine. There are trace bilateral pleural effusions. IMPRESSION: 1. Stable biliary dilatation. 2. Small duodenal diverticula. 3. Stable mild ascites. 4. Likely left renal cysts. 5. Stable thickening of the wall of the stomach. POS: [facility]
[2017-05-14] MEDS ORDERED: Iopamidol 370 76% 100 ML VIAL ONE (16:10)
[2017-05-14] MEDS: Dexamethasone 1 MG TAB PO SCH (17:26)
[2017-05-14] MEDS: Famotidine 20 MG TAB PO SCH (21:01)
[2017-05-14] MEDS: K-Phos Neutral 250 MG TAB PO SCH (21:02)
[2017-05-15] MEDS: Sodium Chloride 0.9% 1,000 ML IV SCH (03:54)
[2017-05-15] MEDS: Meropenem 1 GM in Sodium Chloride 0.9% 100 ML IVPB SCH ×3 (03:54→21:05)
[2017-05-15 05:37] LABS: #Lymphocytes 0.6 thou/uL (1.20-3.40); #Monocytes 0.3 thou/uL (0.11-0.59); #Neutrophils 3.7 thou/uL (1.40-6.50); %Basophils 0.2 % (0.0-1.0); %Eosinophils 0.6 % (0.0-10.0); %Lymphocytes 13.1 % (21.0-51.0); %Monocytes 6.3 % (0.0-10.0); Hematocrit 28.5 % (36.0-47.0); Mean Platelet Volume 7.3 fL (7.4-10.4); Red Blood Cell (RBC) Count 3.02 mill/uL (4.20-5.40); White Blood Cell (WBC) Count 4.6 thou/uL (4.8-10.8)
[2017-05-15 05:56] LABS: Anion Gap 10 mmol/L (10-20); BUN (Urea Nitrogen) 11 mg/dL (9.8-20.1); Calc. Creatinine Clearance 99 mL/min (70-130); Calcium 7.6 mg/dL (7.8-10.44); Carbon Dioxide 27 mmol/L (23-31); Chloride 99 mmol/L (98-107); Estimated GFR-MDRD Greater than 90; Phosphorus 2.7 mg/dL (2.3-4.7)
[2017-05-15] MEDS: Levothyroxine Sodium 25 MCG TAB PO SCH (06:40)
--- NOTE | 2017-05-15 08:42 | RAD ---
PORTABLE FRONTAL CHEST RADIOGRAPH: Date: 05/15/17 COMPARISON: 05/10/17. HISTORY: Shortness of breath and fever. FINDINGS: Stable right-sided CT injectable Port-A-Cath. Heart and mediastinal contour stable. Mild blunting of costophrenic angles, which may signify small volume pleural fluid and/or pleural th ickening. There is asymmetric linear density in bilateral perihilar regions, as well as the inferior /lateral aspect of the right upper lobe and the medial aspect of bilateral upper lobes, right greate r than left. This pulmonary parenchymal opacity appears new when compared to 05/10/17. IMPRESSION: New linear density noted in bilateral upper lobes medially, right greater than left, as well as in t he lateral inferior right upper lobe. Probable small new pleural effusions. Findings suggest interva l development of pulmonary edema, but infectious pneumonitis/aspiration is possible as well. Follow- up to resolution advised. POS: [facility]
[2017-05-15] MEDS: Lactinex Tablet PO SCH (09:33)
[2017-05-15] MEDS: Famotidine 20 MG TAB PO SCH ×2 (09:33→21:06)
[2017-05-15] MEDS: Digoxin 0.125 MG TAB PO SCH (09:33)
[2017-05-15] MEDS: Dexamethasone 1 MG TAB PO SCH ×2 (09:35→17:31)
[2017-05-15] MEDS: Docusate 100 MG CAP PO SCH ×2 (09:38→21:06)
[2017-05-15] MEDS: Enoxaparin Sodium 30 MG/0.3 ML SYRINGE SC SCH (09:38)
[2017-05-15] MEDS ORDERED: Furosemide 40 MG/4 ML VIAL SLOW IVP SCH (11:45)
[2017-05-15] MEDS ORDERED: Metoprolol Tartrate 25 MG TAB PO SCH (12:30)
--- NOTE | 2017-05-15 12:30 | PDOC.PN ---
- Subjective Encounter Start Date: 05/15/17 Encounter Start Time: 11:00 Patient seen and examined. No new complaints. No overnight events. Feels gen weak. SOB + - Objective Resuscitation Status: Resuscitation Status FULL:Full Resuscitation MAR Reviewed: Yes Vital Signs & Weight: Vital Signs (12 hours) Temp Pulse Pulse Pulse Resp BP BP 05/15/17 09:33 135 H 05/15/17 08:50 135 H 110 H 05/15/17 07:50 98.1 F 80 20 119/76 05/15/17 04:00 97.7 F 91 18 107/63 Pulse Ox Pulse Ox Pulse Ox 05/15/17 09:33 05/15/17 08:50 85 L 90 L 05/15/17 07:50 93 L 05/15/17 04:00 90 L Weight Admit Weight 147 lb Weight 154 lb I&O: 05/14/17 05/15/17 05/16/17 06:59 06:59 06:59 Intake Total 1627 2750 Output Total 850 700 Balance 777 2050 Result Diagrams: 05/15/17 05:01 05/15/17 05:01 EKG Reviewed by me: Yes (Tele Afib) Phys Exam - Physical Examination Constitutional: NAD Respiratory: no wheezing Scat rhonchi with bibasilar rales Cardiovascular: no rub, irregular Gastrointestinal: soft, non-tender, positive bowel sounds Musculoskeletal: no edema Neurological: non-focal, moves all 4 limbs Dx/Plan (1) Acute hypoxemic respiratory failure Code(s): J96.01 - ACUTE RESPIRATORY FAILURE WITH HYPOXIA Status: Acute Comment: prob due to pneumonia vs Pulm edema (2) Sepsis due to pneumonia Code(s): J18.9 - PNEUMONIA, UNSPECIFIED ORGANISM; A41.9 - SEPSIS, UNSPECIFIED ORGANISM Status: Acute Comment: suspected gram negative organism (3) Near syncope Status: Acute Comment: multifactorial (4) UTI (urinary tract infection) Status: Acute (5) Electrolyte abnormality Code(s): E87.8 - OTH DISORDERS OF ELECTROLYTE AND FLUID BALANCE, NEC Status: Acute Comment: hypophosphatemia/ hypomagnessemia (6) Chronic a-fib Code(s): I48.2 - CHRONIC ATRIAL FIBRILLATION Status: Chronic Comment: no anticoag due to nose bleeds (7) Other issues per previous notes - Plan cont current plan of care, DVT proph w/lovenox, DVT proph w/SCDs * Consult Pulmonary/Oncology * Palliative care following * AM labs * Cont Meropenem * Cont Dexamethasone to BID for next 2-3 days then prob change to once daily( home dose) * Cont PT * Metoprolol restarted today per Cardiology, Also Cardizem dose increased * Will probably need home O2 at dc Review of Systems - Review of Systems Constitutional: negative: Fever, Chills, Sweats, Weakness, Malaise, Other Respiratory: Cough, Dry, SOB with Excertion Cardiovascular: negative: Chest Pain, Palpitations, Orthopnea, Paroxysmal Noc. Dyspnea, Edema, Light Headedness, Other - Medications/Allergies Allergies/Adverse Reactions: Allergies Allergy/AdvReac Type Severity Reaction Status Date / Time adhesive Allergy Rash Verified 05/10/17 20:01 amoxicillin trihydrate Allergy Rash Verified 05/10/17 20:01 [From Augmentin] ciprofloxacin [From Cipro] Allergy Rash Verified 05/10/17 20:01 ciprofloxacin HCl Allergy Rash Verified 05/10/17 20:01 [From Cipro] potassium clavulanate Allergy Rash Verified 05/10/17 20:01 [From Augmentin] sulfamethoxazole Allergy Rash Verified 05/10/17 20:01 [From Bactrim] trimethoprim [From Bactrim] Allergy Rash Verified 05/10/17 20:01 Medications: Current Medications Acetaminophen (Tylenol) 650 mg PO Q4H PRN PRN Reason: Headache/Fever or Pain Last Admin: 05/14/17 13:14 Dose: 650 mg Acidophilus (Floranex) 1 tab PO DAILY [facility] Last Admin: 05/15/17 09:33 Dose: 1 tab Bisacodyl (Dulcolax) 10 mg DC Q24H PRN PRN Reason: Constipation Calcium Carbonate (Tums) 1,000 mg PO Q4H PRN PRN Reason: Heartburn or Indigestion Last Admin: 05/11/17 19:29 Dose: 1,000 mg Citalopram Hydrobromide (Celexa) 20 mg PO HS [facility] Dexamethasone (Decadron) 2 mg PO BID[facility] Last Admin: 05/15/17 09:35 Dose: 2 mg Digoxin (Lanoxin) 0.125 mg PO QAM [facility] Last Admin: 05/15/17 09:33 Dose: 0.125 mg Diltiazem HCl (Cardizem Cd) 240 mg PO DAILY [facility] Docusate Sodium (Colace) 100 mg PO BID [facility] Last Admin: 05/15/17 09:38 Dose: Not Given Enoxaparin Sodium (Lovenox) 30 mg SC 0900 [facility] Last Admin: 05/15/17 09:38 Dose: Not Given Famotidine (Pepcid) 20 mg PO BID [facility] Last Admin: 05/15/17 09:33 Dose: 20 mg Furosemide (Lasix) 20 mg SLOW IVP NOW [facility] Stop: 05/15/17 13:00 Meropenem 1 gm/ Sodium (Chloride) 100 mls @ 200 mls/hr IVPB Q8H [facility] Last Admin: 05/15/17 03:54 Dose: 100 mls Levothyroxine Sodium (Synthroid) 25 mcg PO 0600 [facility] Last Admin: 05/15/17 06:40 Dose: 25 mcg Loperamide HCl (Imodium) 2 mg PO PRN PRN PRN Reason: Diarrhea/Loose Stools Last Admin: 05/13/17 17:49 Dose: 2 mg Metoprolol Tartrate (Lopressor) 25 mg PO BID [facility] Metoprolol Tartrate (Lopressor) 25 mg PO NOW [facility] Ondansetron HCl (Zofran) 4 mg IVP Q6H PRN PRN Reason: Nausea/Vomiting Sodium Chloride (Flush - Normal Saline) 10 ml IVF Q12HR [facility] Last Admin: 05/15/17 09:36 Dose: 10 ml Sodium Chloride (Flush - Normal Saline) 10 ml IVF PRN PRN PRN Reason: Saline Flush
--- NOTE | 2017-05-15 12:42 | CON ---
DATE OF CONSULTATION: 05/15/2017 CONSULTING PHYSICIAN: Dr. Arnold. REASON FOR CONSULTATION: Hypoxemia. HISTORY OF PRESENT ILLNESS: The patient is an 82-year-old female who was admitted to this facility on 05/10/2017 after having a near syncopal episode at home. 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 She has been taking Taxol for chemotherapy. He r last chemotherapy treatment was last week. Over the course of this hospitalization, she has devel oped hypoxemia and progressive shortness of breath. She has received some fluid and resuscitation f or her syncope. She spiked a temperature of yesterday that was told to the doctor as 102, but only recorded in the chart as 100.6. She was started on antibiotics yesterday. She denies any cough. S he is short of breath when she gets up and tries to walk. PAST MEDICAL HISTORY: 1. Metastatic breast cancer. 2. Hyperlipidemia. 3. Hypertension. 4. Chronic atrial fibrillation. PAST SURGICAL HISTORY: MediPort placement, mastectomy, and left shoulder surgery. SOCIAL HISTORY: Does not smoke. Does not use recreational drugs, does not drink alcohol. FAMILY MEDICAL HISTORY: Unremarkable. ALLERGIES: AMOXICILLIN, AUGMENTIN, CIPRO, and SULFA. REVIEW OF SYSTEMS: She is severely weak. She has had no nausea, vomiting, chest pain, hematemesis, melena, hematochezia, hematuria, or dysuria. PHYSICAL EXAMINATION: VITAL SIGNS: Temperature 98.1, pulse 135, respirations 20, O2 sat is currently 93% on 3 liters. Sh e is 5 foot 9, weight 154 pounds. HEENT: Remarkable for alopecia. Oropharynx is clear. NECK: Without adenopathy or JVD. LUNGS: She has inspiratory crackles which I would characterize as mild throughout both lungs all th e way up. CARDIOVASCULAR: S1, S2 irregularly irregular, tachycardic. ABDOMEN: Soft, slightly distended without tenderness. EXTREMITIES: No clubbing, cyanosis, or edema. LABORATORY DATA: Sodium 132, potassium 3.7, chloride 99, CO2 27, BUN 11, creatinine 0.5, glucose 12 8. Albumin 2.4. White blood cell count 4.6, hemoglobin 9.4, hematocrit 28.5, platelet count 176. CT was reviewed. Chest x-ray today shows some medial appearing upper lobe infiltrates with cephaliz ation of flow. ASSESSMENT: 1. Hypoxemia. This is probably multifactorial. I would presume that she probably has some compone nt of fluid overload which may be worsened by her atrial fibrillation with rapid ventricular respons e. Infection is of course a possibility given the fever from yesterday. Taxol can cause accumulati on of fluid in the chest and has about 2% incidence of dyspnea. It would appear pulmonary embolism has been ruled out by the recent negative CT pulmonary angiogram. She could also have lymphangitic spread of tumor to the chest. RECOMMENDATIONS: I would recommend continuing the antibiotics at low dose diuretic. Try to get her heart rate to more reasonable rate. Agree with the steroids. It could end up that she needs oxyge n at home at the time of discharge. Thank you for allowing me to participate in Mrs. Dotson's care.
--- NOTE | 2017-05-15 13:09 | PRG ---
DATE OF SERVICE: 05/15/2017 Ms. Dotson's heart rate increased overnight. She slowly started to trend up. Prior to her recent ad mission she was on beta-atif therapy, digoxin and high dose calcium channel blockade. She was on ly on intermediate dose calcium channel blockade and was not on beta blockers. She did not need it at the time. She is fairly asymptomatic. PHYSICAL EXAMINATION: VITAL SIGNS: Blood pressure 119/76, pulse 135, respirations 20. LUNGS: Clear to auscultation. HEART: Irregularly irregular. ABDOMEN: Distended. EXTREMITIES: No significant edema. PERTINENT LABORATORY: Hemoglobin 9.4, creatinine 0.47. IMPRESSION: 1. Atrial fibrillation with rapid ventricular response. 2. Metastatic breast cancer. RECOMMENDATIONS: I had a long discussion with the daughter and about how to proceed. Certa inly with her comorbidities would prefer being more conservative. At this point will add beta-block er therapy and increase her calcium channel atif. May consider AVL ablation and pacemaker implan tation. I discussed the risks and benefits of anticoagulation. She has a history of chronic nosebl eeds. At this time would prefer not restarting anticoagulation therapy given her current situation. I would certainly agree.
[2017-05-15] MEDS: Citalopram 20 MG TAB PO SCH (21:05)
[2017-05-15] MEDS: Metoprolol Tartrate 25 MG TAB PO SCH (21:06)
[2017-05-16 05:34] LABS: #Lymphocytes 0.6 thou/uL (1.20-3.40); #Monocytes 0.3 thou/uL (0.11-0.59); #Neutrophils 4.2 thou/uL (1.40-6.50); %Eosinophils 0.4 % (0.0-10.0); %Lymphocytes 11.1 % (21.0-51.0); %Monocytes 5.5 % (0.0-10.0); Hematocrit 26.9 % (36.0-47.0); Mean Platelet Volume 7.4 fL (7.4-10.4); Red Blood Cell (RBC) Count 2.85 mill/uL (4.20-5.40); White Blood Cell (WBC) Count 5.1 thou/uL (4.8-10.8)
[2017-05-16] MEDS: Meropenem 1 GM in Sodium Chloride 0.9% 100 ML IVPB SCH ×3 (05:36→21:12)
[2017-05-16] MEDS: Levothyroxine Sodium 25 MCG TAB PO SCH (05:36)
[2017-05-16 05:53] LABS: Anion Gap 9 mmol/L (10-20); BUN (Urea Nitrogen) 15 mg/dL (9.8-20.1); Calc. Creatinine Clearance 108 mL/min (70-130); Calcium 7.7 mg/dL (7.8-10.44); Carbon Dioxide 29 mmol/L (23-31); Chloride 98 mmol/L (98-107); Estimated GFR-MDRD Greater than 90; Magnesium 1.4 mg/dL (1.6-2.6); Phosphorus 2.8 mg/dL (2.3-4.7)
[2017-05-16] MEDS: Enoxaparin Sodium 30 MG/0.3 ML SYRINGE SC SCH (07:24)
[2017-05-16] MEDS: Dexamethasone 1 MG TAB PO SCH ×2 (08:05→17:55)
[2017-05-16] MEDS: Digoxin 0.125 MG TAB PO SCH (08:05)
[2017-05-16] MEDS: Docusate 100 MG CAP PO SCH ×2 (08:06→21:13)
[2017-05-16] MEDS: Metoprolol Tartrate 25 MG TAB PO SCH ×2 (08:07→21:13)
[2017-05-16] MEDS: Lactinex Tablet PO SCH (08:07)
[2017-05-16] MEDS: Famotidine 20 MG TAB PO SCH ×2 (08:07→21:13)
--- NOTE | 2017-05-16 09:43 | PRG ---
DATE OF SERVICE: 05/16/2017 The patient is doing reasonably well. She had no complaints. PHYSICAL EXAMINATION: VITAL SIGNS: Temperature 97.5, pulse 99, respirations 18, O2 sat 91% on 3 liters, blood pressure 13 0/65. HEENT: Unremarkable. NECK: No JVD. RESPIRATORY: She has inspiratory crackles in both lungs. CARDIAC: S1, S2 irregularly irregular, but rate controlled. ABDOMEN: Soft. EXTREMITIES: No edema. LABORATORY DATA: White blood cell count 5.1, hematocrit 26.9, platelet count 175. Sodium 132, pota ssium 3.6, chloride 98, CO2 29, BUN 15, creatinine 0.4, glucose 120. ASSESSMENT: Multifactorial dyspnea - I believe the patient has some component of pneumonitis contri buting to her current symptoms, I thought yesterday she might be in pulmonary edema, but today she l ooks somewhat intravascularly depleted and I would be very hesitant to give her more diuretics at th e current time. PLAN: 1. Continue with the antibiotics. 2. Wean O2 as tolerated. 3. May end up needing home O2.
--- NOTE | 2017-05-16 12:13 | PDOC.PN ---
- Subjective Encounter Start Date: 05/16/17 Encounter Start Time: 12:11 Ms. Dotson says she feels tired this morning. She had trouble sleeping last night. She also notes continued dyspnea. - Objective Resuscitation Status: Resuscitation Status FULL:Full Resuscitation MAR Reviewed: Yes Vital Signs & Weight: Vital Signs (12 hours) Temp Pulse Pulse Resp BP BP BP 05/16/17 11:30 97.8 F 77 22 H 105/67 05/16/17 11:20 80 105/62 05/16/17 08:06 99 05/16/17 08:05 89 05/16/17 07:54 97.5 F L 99 18 130/65 05/16/17 04:00 97.9 F 78 20 118/69 05/16/17 00:31 Pulse Ox Pulse Ox 05/16/17 11:30 05/16/17 11:20 82 L 05/16/17 08:06 05/16/17 08:05 05/16/17 07:54 91 L 05/16/17 04:00 91 L 05/16/17 00:31 92 L Weight Admit Weight 147 lb Weight 154 lb 6.4 oz I&O: 05/15/17 05/16/17 05/17/17 06:59 06:59 06:59 Intake Total 2750 1030 Output Total 700 1100 Balance 2049 Result Diagrams: 05/16/17 05:16 05/16/17 05:16 Phys Exam - Physical Examination HEENT: PERRLA + rales on the left side anteriorly Cardiovascular: RRR, no significant murmur Gastrointestinal: soft, non-tender, positive bowel sounds Musculoskeletal: edema present trace pedal edema Dx/Plan (1) Acute hypoxemic respiratory failure Code(s): J96.01 - ACUTE RESPIRATORY FAILURE WITH HYPOXIA Status: Acute Comment: prob due to pneumonia vs Pulm edema (2) Near syncope Status: Acute Comment: multifactorial (3) Physical deconditioning Code(s): R53.81 - OTHER MALAISE Status: Acute (4) Chronic a-fib Code(s): I48.2 - CHRONIC ATRIAL FIBRILLATION Status: Chronic Comment: no anticoag due to nose bleeds (5) Metastatic breast cancer Code(s): C50.919 - MALIGNANT NEOPLASM OF UNSP SITE OF UNSPECIFIED FEMALE BREAST Status: Acute (6) Hypertension Code(s): I10 - ESSENTIAL (PRIMARY) HYPERTENSION Status: Chronic - Plan * Acute respiratory failure- likely from Pneumonitis- Continue Meropenem, and can likely de-escalate antibiotics in 1-2 days * AFIB- her heart rate is better today- Patient is not on anticoagulation due to nose bleeds * HTN- blood pressure is stable * Severe Deconditioning- Continue PT, and mobilize as tolerated
[2017-05-16] MEDS ORDERED: Furosemide 40 MG/4 ML VIAL IVP SCH (14:45)
--- NOTE | 2017-05-16 15:30 | PRG ---
DATE OF SERVICE: 05/16/2017 SUBJECTIVE: Ms. Garcia appears more alert today. She is seen sitting up and eating. The daughter s tates she feels she is swollen in her face, although not appreciated. Her heart rate is much better on adding beta atif therapy. OBJECTIVE: VITAL SIGNS: Blood pressure 105/64, pulse 77, and temperature 97.8. LUNGS: Crackles noted bilaterally. CARDIAC: Irregularly irregular. ABDOMEN: Soft, nontender, and nondistended. EXTREMITIES: No edema. PERTINENT LABS: Hemoglobin 8.9, creatinine 0.45. IMPRESSION: 1. Atrial fibrillation. 2. Metastatic breast cancer. 3. Acute on chronic diastolic heart failure. RECOMMENDATIONS: 1. Continue current treatment with Cardizem, digoxin and beta-atif therapy. 2. Add IV Lasix x1 dose. 3. Continue antibiotic therapy. 4. Okay from my standpoint, discharge telemetry and transfer to medical.
[2017-05-16] MEDS: Citalopram 20 MG TAB PO SCH (21:13)
[2017-05-17] MEDS: Meropenem 1 GM in Sodium Chloride 0.9% 100 ML IVPB SCH ×3 (05:48→20:30)
[2017-05-17] MEDS: Levothyroxine Sodium 25 MCG TAB PO SCH (05:48)
[2017-05-17 06:36] LABS: Anion Gap 11 mmol/L (10-20); BUN (Urea Nitrogen) 15 mg/dL (9.8-20.1); Calc. Creatinine Clearance 104 mL/min (70-130); Carbon Dioxide 31 mmol/L (23-31); Chloride 95 mmol/L (98-107); Estimated GFR-MDRD Greater than 90; Magnesium 1.4 mg/dL (1.6-2.6)
[2017-05-17] MEDS: Digoxin 0.125 MG TAB PO SCH (07:56)
[2017-05-17] MEDS: Dexamethasone 1 MG TAB PO SCH ×2 (07:56→17:31)
[2017-05-17] MEDS: Famotidine 20 MG TAB PO SCH ×2 (07:57→20:25)
[2017-05-17] MEDS: Metoprolol Tartrate 25 MG TAB PO SCH ×2 (07:57→20:26)
[2017-05-17] MEDS: Docusate 100 MG CAP PO SCH ×2 (07:57→20:25)
[2017-05-17] MEDS: Lactinex Tablet PO SCH (07:57)
[2017-05-17] MEDS: Enoxaparin Sodium 30 MG/0.3 ML SYRINGE SC SCH (08:00)
--- NOTE | 2017-05-17 11:23 | PDOC.PN ---
- Subjective Encounter Start Date: 05/17/17 Encounter Start Time: 11:20 Ms. Dotson continues to feel extremely weak, even with just getting up to the bedside commode. She still feels short of breath. - Objective Resuscitation Status: Resuscitation Status FULL:Full Resuscitation MAR Reviewed: Yes Vital Signs & Weight: Vital Signs (12 hours) Temp Pulse Resp BP Pulse Ox 05/17/17 07:56 94 05/17/17 07:51 97.7 F 94 24 H 117/79 94 L 05/17/17 04:00 97.3 F L 87 18 110/68 94 L 05/17/17 00:45 97 Weight Admit Weight 147 lb Weight 152 lb 2 oz I&O: 05/16/17 05/17/17 05/18/17 06:59 06:59 06:59 Intake Total 1030 1272 Output Total 1100 600 Balance -70 672 Result Diagrams: 05/16/17 05:16 05/17/17 05:45 Phys Exam - Physical Examination HEENT: PERRLA + rales anteriorly Cardiovascular: RRR, no significant murmur, no rub Gastrointestinal: soft, non-tender, positive bowel sounds Musculoskeletal: edema present trace pedal edema Dx/Plan (1) Acute hypoxemic respiratory failure Code(s): J96.01 - ACUTE RESPIRATORY FAILURE WITH HYPOXIA Status: Acute Comment: prob due to pneumonia vs Pulm edema (2) Near syncope Status: Acute Comment: multifactorial (3) Physical deconditioning Code(s): R53.81 - OTHER MALAISE Status: Acute (4) Chronic a-fib Code(s): I48.2 - CHRONIC ATRIAL FIBRILLATION Status: Chronic Comment: no anticoag due to nose bleeds (5) Metastatic breast cancer Code(s): C50.919 - MALIGNANT NEOPLASM OF UNSP SITE OF UNSPECIFIED FEMALE BREAST Status: Acute (6) Hypertension Code(s): I10 - ESSENTIAL (PRIMARY) HYPERTENSION Status: Chronic - Plan * Acute on chronic respiratory failure- slowly improved- due to AFIB with RVR, and Pneumonitis * AFIB- her heart rate is controlled, and she can move to the medical floor * She is not on anticoagulation due to recurrent severe nose bleeds * Pneumonitis- Continue Meropenem, she is on day # 3. Can consider stopping after 5 days of therapy * Continue PT * Monitor over the weekend, and Hopefully Home Friday with Home Health, and PT.
[2017-05-17] MEDS: Furosemide 40 MG/4 ML VIAL SLOW IVP SCH (12:23)
[2017-05-17] MEDS: Magnesium Oxide 400 MG TAB PO SCH (20:25)
[2017-05-17] MEDS: Citalopram 20 MG TAB PO SCH (20:25)
[2017-05-18] MEDS: Furosemide 40 MG/4 ML VIAL SLOW IVP SCH ×2 (05:58→16:50)
[2017-05-18] MEDS: Levothyroxine Sodium 25 MCG TAB PO SCH (05:58)
[2017-05-18] MEDS: Meropenem 1 GM in Sodium Chloride 0.9% 100 ML IVPB SCH ×4 (06:02→21:40)
[2017-05-18] MEDS: Lactinex Tablet PO SCH (08:40)
[2017-05-18] MEDS: Famotidine 20 MG TAB PO SCH ×3 (08:41→20:39)
[2017-05-18] MEDS: Magnesium Oxide 400 MG TAB PO SCH ×2 (08:41→20:37)
[2017-05-18] MEDS: Docusate 100 MG CAP PO SCH ×2 (08:41→20:37)
[2017-05-18] MEDS: Enoxaparin Sodium 30 MG/0.3 ML SYRINGE SC SCH (08:42)
[2017-05-18] MEDS: Dexamethasone 1 MG TAB PO SCH ×2 (08:43→16:49)
[2017-05-18] MEDS: Digoxin 0.125 MG TAB PO SCH (08:43)
[2017-05-18] MEDS: Metoprolol Tartrate 25 MG TAB PO SCH ×2 (08:44→20:34)
--- NOTE | 2017-05-18 09:09 | PDOC.PN ---
- Subjective Encounter Start Date: 05/18/17 Encounter Start Time: 09:08 Ms. Dotson says she feels better today. she rested well last night. Sh denies any chest pain. - Objective Resuscitation Status: Resuscitation Status FULL:Full Resuscitation MAR Reviewed: Yes Vital Signs & Weight: Vital Signs (12 hours) Temp Pulse Resp BP BP Pulse Ox 05/18/17 08:44 98 05/18/17 08:43 98 05/18/17 07:19 97.6 F 92 18 127/70 94 L 05/18/17 04:00 98 18 106/65 92 L 05/18/17 00:18 92 L 05/18/17 00:17 98 F 87 20 112/72 92 L Weight Admit Weight 147 lb Weight 152 lb 2 oz I&O: 05/17/17 05/18/17 05/19/17 06:59 06:59 06:59 Intake Total 1272 1720 Output Total 600 Balance 672 1720 Result Diagrams: 05/16/17 05:16 05/17/17 05:45 Phys Exam - Physical Examination HEENT: PERRLA Respiratory: no wheezing + rales bilaterally, more anteriorly Cardiovascular: RRR, no significant murmur, no rub Gastrointestinal: soft, non-tender, positive bowel sounds Musculoskeletal: edema present + swelling in the left upper extremity Dx/Plan (1) Acute hypoxemic respiratory failure Code(s): J96.01 - ACUTE RESPIRATORY FAILURE WITH HYPOXIA Status: Acute Comment: prob due to pneumonia vs Pulm edema (2) Near syncope Status: Acute Comment: multifactorial (3) Physical deconditioning Code(s): R53.81 - OTHER MALAISE Status: Acute (4) Chronic a-fib Code(s): I48.2 - CHRONIC ATRIAL FIBRILLATION Status: Chronic Comment: no anticoag due to nose bleeds (5) Metastatic breast cancer Code(s): C50.919 - MALIGNANT NEOPLASM OF UNSP SITE OF UNSPECIFIED FEMALE BREAST Status: Acute (6) Hypertension Code(s): I10 - ESSENTIAL (PRIMARY) HYPERTENSION Status: Chronic - Plan * Acute respiratory failure- will monitor through the day, may need to repeat CXR, as her oxygen requirement have increased over the past few days * AFIB- her heart rate has been stable * Continue Meropenem day #4 * Continue PT
--- NOTE | 2017-05-18 12:58 | RAD ---
SINGLE VIEW OF CHEST: Date: 05/18/17 COMPARISON: 05/15/17. HISTORY: Hypoxia. FINDINGS: Single view of the chest shows an enlarged cardiomediastinal silhouette. The MediPort is unchanged i n position. Scarring is seen in both lung apices. Increased interstitial lung markings are present. There are questionable superimposed infiltrates in the bilateral upper lobes. IMPRESSION: Scarring in apices with possible superimposed bilateral upper lobe infiltrates. POS: [facility]
[2017-05-18] MEDS ORDERED: Magnesium 2 GM/NS 0.9% 100 ML 2 GM in Premix Bag 1 BAG IVPB SCH (14:30)
[2017-05-18] MEDS ORDERED: Magnesium Sulfate 2 GM in Sodium Chloride 0.9% 100 ML IVPB SCH (14:30)
[2017-05-18] MEDS ORDERED: Azithromycin 250 MG TAB PO SCH (15:15)
--- NOTE | 2017-05-18 17:34 | PRG ---
DATE OF SERVICE: 05/18/2017 SERVICE: Pulmonary Medicine. INTERVAL HISTORY: The patient was aggressively diuresed yesterday. This did not have any significa nt improvement on her oxygenation. This morning, her sats were fine on 2 liters, but as the day mark t on, she started developing hypoxemia down to low 80s. This was associated with increasing work of breathing and shortness of breath. After moving around to touch, her oxygen saturations actually b umped back up. She denies any current fevers, chills, nausea or vomiting. She has no chest discomf ort otherwise. PHYSICAL EXAMINATION: VITAL SIGNS: Afebrile, pulse 75, blood pressure 95/56, respirations 12, saturation 95% on 4 liters nasal cannula. GENERAL: The patient is awake and alert, in no apparent distress. LUNGS: Decent air entry. There is no prolonged expiratory phase or wheezing. Asymmetric crackles are identified, which are much more predominant on the left. ABDOMEN: Soft, nontender, nondistended, bowel sounds positive. MUSCULOSKELETAL: No cyanosis or clubbing. There is no pitting in the bilateral lower extremities. There is no pitting in the pelvis. GENITOURINARY: No Ruelas catheter in place. NEUROLOGIC: Grossly nonfocal. LABORATORY DATA: WBC 5.1, hemoglobin 8.9, platelets 175,000. Sodium 133. Chloride 95. Basic meta bolic profile is otherwise unremarkable. Calcium 8.0, magnesium 1.4. Blood cultures x2 and urine c ulture negative to date. IMAGIN. Chest x-ray demonstrates by atypical interstitial prominence. 2. I reviewed the CT scan of the chest from presentation. There was a little bit of ground glass c hanges, particularly in the right upper lobe. That being said, I do not see any overt consolidated changes or anything that would tell us why she has this degree of hypoxemia. The aortic root is lit tle dilated. ASSESSMENT: 1. Acute hypoxic respiratory failure. 2. Breast cancer, widely metastatic. 3. Minimal ground glass changes in the upper lobes on CT scan. 4. Atrial fibrillation with rapid ventricular response. PLAN: I will get a BNP. That being said, the patient is pretty close to euvolemic and I would not add any additional Lasix if thing is elevated. We will send a respiratory virus profile to see whet her or not viral diseases contributing to her presentation. Atypical antibiotic will be initiated f or a total duration of 5 days. CMV PCR blood will be sent looking for active disease there. I will continue to follow.
[2017-05-18] MEDS: Citalopram 20 MG TAB PO SCH (20:36)
[2017-05-19] MEDS: Meropenem 1 GM in Sodium Chloride 0.9% 100 ML IVPB SCH ×3 (05:36→21:20)
[2017-05-19] MEDS: Levothyroxine Sodium 25 MCG TAB PO SCH (05:37)
--- NOTE | 2017-05-19 07:03 | ULT ---
ULTRASOUND WITH DOPPLER DUPLEX VENOUS RIGHT UPPER EXTREMITY: Date: 05/18/17 HISTORY: 82-year-old female with right arm swelling. TECHNIQUE: Veloz scale, color flow, and spectral analysis of major veins of right upper extremity. Compression a pplied to all vessels except the subclavian vein. FINDINGS: There is no evidence of thrombosis of the right internal jugular, subclavian, axillary, brachial, ba silic, or cephalic veins. There is edema in the soft tissues of the upper extremity. IMPRESSION: 1. No deep vein thrombosis of the right upper extremity. 2. Soft tissue edema of the right upper extremity. POS: [facility]
[2017-05-19] MEDS: Digoxin 0.125 MG TAB PO SCH (08:31)
[2017-05-19] MEDS: Metoprolol Tartrate 25 MG TAB PO SCH ×2 (08:33→20:50)
[2017-05-19] MEDS: Lactinex Tablet PO SCH (08:33)
[2017-05-19] MEDS: Magnesium Oxide 400 MG TAB PO SCH ×2 (08:33→20:46)
[2017-05-19] MEDS: Docusate 100 MG CAP PO SCH ×2 (08:33→20:47)
[2017-05-19] MEDS: Famotidine 20 MG TAB PO SCH ×2 (08:33→20:47)
[2017-05-19] MEDS: Dexamethasone 1 MG TAB PO SCH ×2 (08:36→18:18)
[2017-05-19] MEDS: Azithromycin 250 MG TAB PO SCH (08:37)
[2017-05-19] MEDS: Enoxaparin Sodium 30 MG/0.3 ML SYRINGE SC SCH (08:38)
--- NOTE | 2017-05-19 09:51 | PDOC.PN ---
- Subjective Encounter Start Date: 05/19/17 Encounter Start Time: 09:49 Ms. Dotson says she is breathing ok this morning. She denies chest pain. - Objective Resuscitation Status: Resuscitation Status FULL:Full Resuscitation MAR Reviewed: Yes Vital Signs & Weight: Vital Signs (12 hours) Temp Pulse Resp BP BP BP Pulse Ox 05/19/17 08:34 91 121/70 05/19/17 08:31 91 05/19/17 08:00 97.5 F L 91 20 121/70 05/19/17 04:00 97.2 F L 90 20 122/72 88 L 05/19/17 00:30 90 L 05/19/17 00:00 97.0 F L 100 20 114/71 90 L Weight Admit Weight 147 lb Weight 152 lb 2 oz I&O: 05/18/17 05/19/17 05/20/17 06:59 06:59 06:59 Intake Total 1720 1090 Balance 1720 1090 Result Diagrams: 05/16/17 05:16 05/17/17 05:45 Phys Exam - Physical Examination HEENT: PERRLA Respiratory: no rales + rales anteriorly- but diminished from yesterday Cardiovascular: RRR, no significant murmur Gastrointestinal: soft, non-tender, positive bowel sounds Musculoskeletal: no edema Dx/Plan (1) Acute hypoxemic respiratory failure Code(s): J96.01 - ACUTE RESPIRATORY FAILURE WITH HYPOXIA Status: Acute Comment: prob due to pneumonia vs Pulm edema (2) Near syncope Status: Acute Comment: multifactorial (3) Physical deconditioning Code(s): R53.81 - OTHER MALAISE Status: Acute (4) Chronic a-fib Code(s): I48.2 - CHRONIC ATRIAL FIBRILLATION Status: Chronic Comment: no anticoag due to nose bleeds (5) Metastatic breast cancer Code(s): C50.919 - MALIGNANT NEOPLASM OF UNSP SITE OF UNSPECIFIED FEMALE BREAST Status: Acute (6) Hypertension Code(s): I10 - ESSENTIAL (PRIMARY) HYPERTENSION Status: Chronic - Plan * .Acute respiratory failure- subjectively improved per the patient * Will continue Azithomycin, and Meropenem * Serology for CMV has been sent * Will hold off on any further Lasix * AFIB- her heart rate is controlled * Continue PT
--- NOTE | 2017-05-19 12:45 | PRG ---
DATE OF SERVICE: 05/19/2017 SERVICE: Pulmonary Medicine INTERVAL HISTORY: The patient is doing fairly well. She lacks energy. That being said, she denies having any specific shortness of breath. She has yet to really get out of bed during this hospital stay. PHYSICAL EXAMINATION: VITAL SIGNS: Afebrile, pulse 91, blood pressure 121/70, respirations 20, saturation 92% on 4 liters nasal cannula. GENERAL: The patient is awake, alert, in no apparent distress. LUNGS: Decent air entry. Crackles are present, but a little less predominant today. HEART: Normal rate, regular. ABDOMEN: Soft, nontender, nondistended. Bowel sounds positive. MUSCULOSKELETAL: No cyanosis or clubbing. There is no pitting in the bilateral lower extremities. GENITOURINARY: Ruelas catheter in place. NEUROLOGIC: Grossly nonfocal. LABORATORY DATA: BNP 480. Magnesium 1.4. Respiratory virus panel did not detect any viruses. CMV PCR is currently pending. Blood cultures and urine culture negative. ASSESSMENT: 1. Acute hypoxic respiratory failure. 2. Breast cancer, widely metastatic. 3. Minimal ground glass changes in the bilateral upper lobes on CT scan. 4. Atrial fibrillation with rapid ventricular response. 5. Dilated aortic root on CT scan. PLAN: BNP was a little abnormal suggesting volume could still be the culprit. I wonder whether or not the increasingly dilated aortic root is resulting in aortic insufficiency. Respiratory virus pa vinh is currently pending. Empiric antibiotics will be continued, but I doubt we are dealing with a typical pathogen. A viral PCR is pending for CMV.
[2017-05-19] MEDS: Citalopram 20 MG TAB PO SCH (20:47)
[2017-05-20 04:02] LABS: Anion Gap 9 mmol/L (10-20); BUN (Urea Nitrogen) 19 mg/dL (9.8-20.1); Calc. Creatinine Clearance 94 mL/min (70-130); Calcium 7.8 mg/dL (7.8-10.44); Carbon Dioxide 35 mmol/L (23-31); Chloride 94 mmol/L (98-107); Estimated GFR-MDRD Greater than 90; Magnesium 2.1 mg/dL (1.6-2.6)
[2017-05-20] MEDS: Meropenem 1 GM in Sodium Chloride 0.9% 100 ML IVPB SCH ×3 (06:23→21:31)
[2017-05-20] MEDS: Levothyroxine Sodium 25 MCG TAB PO SCH (06:23)
[2017-05-20] MEDS: Dexamethasone 1 MG TAB PO SCH ×2 (08:58→17:20)
[2017-05-20] MEDS: Azithromycin 250 MG TAB PO SCH (08:59)
[2017-05-20] MEDS: Famotidine 20 MG TAB PO SCH ×2 (09:00→20:55)
[2017-05-20] MEDS: Magnesium Oxide 400 MG TAB PO SCH ×2 (09:01→20:55)
[2017-05-20] MEDS: Lactinex Tablet PO SCH (09:01)
[2017-05-20] MEDS: Metoprolol Tartrate 25 MG TAB PO SCH ×2 (09:01→20:56)
[2017-05-20] MEDS: Enoxaparin Sodium 30 MG/0.3 ML SYRINGE SC SCH (09:02)
[2017-05-20] MEDS: Docusate 100 MG CAP PO SCH ×2 (09:02→20:56)
[2017-05-20] MEDS: Digoxin 0.125 MG TAB PO SCH (09:03)
--- NOTE | 2017-05-20 12:22 | PDOC.PN ---
- Subjective Encounter Start Date: 05/20/17 Encounter Start Time: 12:20 Ms. Dotson does not have any new complaints. She has been more fatigued today than yesterday. He denies dyspnea. - Objective Resuscitation Status: Resuscitation Status FULL:Full Resuscitation MAR Reviewed: Yes Vital Signs & Weight: Vital Signs (12 hours) Temp Pulse Resp BP BP Pulse Ox 05/20/17 11:55 98.0 F 75 20 108/60 90 L 05/20/17 09:03 78 05/20/17 09:02 84 146/89 H 05/20/17 08:00 97.7 F 84 20 146/89 H 93 L 05/20/17 04:00 82 126/85 Weight Admit Weight 147 lb Weight 152 lb 2 oz I&O: 05/19/17 05/20/17 05/21/17 06:59 06:59 06:59 Intake Total 1090 1700 Balance 1090 1700 Result Diagrams: 05/16/17 05:16 05/20/17 03:41 Phys Exam - Physical Examination HEENT: PERRLA rales in both lung [place], now audible posteriorly as well Cardiovascular: RRR, no significant murmur Gastrointestinal: soft, non-tender, positive bowel sounds Musculoskeletal: no edema Dx/Plan (1) Acute hypoxemic respiratory failure Code(s): J96.01 - ACUTE RESPIRATORY FAILURE WITH HYPOXIA Status: Acute Comment: prob due to pneumonia vs Pulm edema (2) Near syncope Status: Acute Comment: multifactorial (3) Physical deconditioning Code(s): R53.81 - OTHER MALAISE Status: Acute (4) Chronic a-fib Code(s): I48.2 - CHRONIC ATRIAL FIBRILLATION Status: Chronic Comment: no anticoag due to nose bleeds (5) Metastatic breast cancer Code(s): C50.919 - MALIGNANT NEOPLASM OF UNSP SITE OF UNSPECIFIED FEMALE BREAST Status: Acute (6) Hypertension Code(s): I10 - ESSENTIAL (PRIMARY) HYPERTENSION Status: Chronic - Plan * Acute respiratory failure- ? etiology- treating for Infectious Pneumonitis * HTN- blood pressure is stable * AFIB- heart rate is stable * Severe deconditioning- continue PT as tolerated.
[2017-05-20] MEDS: Citalopram 20 MG TAB PO SCH (20:55)
[2017-05-21 04:19] LABS: #Eosinphils 0.2 thou/uL (0.0-0.7); #Lymphocytes 0.8 thou/uL (1.20-3.40); #Monocytes 0.4 thou/uL (0.11-0.59); #Neutrophils 4.6 thou/uL (1.40-6.50); %Basophils 0.2 % (0.0-1.0); %Eosinophils 2.6 % (0.0-10.0); %Lymphocytes 13.2 % (21.0-51.0); %Monocytes 6.5 % (0.0-10.0); Hematocrit 27.5 % (36.0-47.0); Mean Platelet Volume 7.5 fL (7.4-10.4); Red Blood Cell (RBC) Count 2.89 mill/uL (4.20-5.40); White Blood Cell (WBC) Count 5.9 thou/uL (4.8-10.8)
[2017-05-21 04:42] LABS: BUN (Urea Nitrogen) 17 mg/dL (9.8-20.1); Calc. Creatinine Clearance 112 mL/min (70-130); Calcium 7.7 mg/dL (7.8-10.44); Estimated GFR-MDRD Greater than 90; Magnesium 1.9 mg/dL (1.6-2.6); Phosphorus 2.8 mg/dL (2.3-4.7)
[2017-05-21 04:51] LABS: Anion Gap 5 mmol/L (10-20); Carbon Dioxide 39 mmol/L (23-31); Chloride 93 mmol/L (98-107)
[2017-05-21] MEDS: Meropenem 1 GM in Sodium Chloride 0.9% 100 ML IVPB SCH ×3 (05:51→22:26)
[2017-05-21] MEDS: Levothyroxine Sodium 25 MCG TAB PO SCH (05:53)
[2017-05-21] MEDS: Famotidine 20 MG TAB PO SCH ×2 (09:03→22:23)
[2017-05-21] MEDS: Digoxin 0.125 MG TAB PO SCH (09:03)
[2017-05-21] MEDS: Dexamethasone 1 MG TAB PO SCH ×2 (09:03→18:10)
[2017-05-21] MEDS: Lactinex Tablet PO SCH (09:03)
[2017-05-21] MEDS: Azithromycin 250 MG TAB PO SCH (09:03)
[2017-05-21] MEDS: Magnesium Oxide 400 MG TAB PO SCH ×2 (09:04→22:23)
[2017-05-21] MEDS: Enoxaparin Sodium 30 MG/0.3 ML SYRINGE SC SCH (09:04)
[2017-05-21] MEDS: Metoprolol Tartrate 25 MG TAB PO SCH ×2 (09:04→22:23)
[2017-05-21] MEDS: Docusate 100 MG CAP PO SCH ×2 (09:04→22:33)
--- NOTE | 2017-05-21 10:06 | PRG ---
DATE OF SERVICE: 05/20/2017 SERVICE: Pulmonary Medicine INTERVAL HISTORY: The patient is doing fine from a cardiovascular and respiratory standpoint. She denies any current shortness of breath or chest discomfort. That being said, she has significant fa tigue with associated desaturation whenever she is without oxygen, or moves about. Otherwise, she i s essentially stable. PHYSICAL EXAMINATION: VITAL SIGNS: Afebrile, pulse 84, blood pressure 146/89, respirations 20, saturation 93% on 4 liters nasal cannula. GENERAL: The patient is awake, alert, no apparent distress. LUNGS: Decent air entry with no prolonged expiratory phase, wheezing or rhonchi. Crackles are pres ent throughout. HEART: Normal rate, regular. ABDOMEN: Soft, nontender, nondistended. Bowel sounds positive. MUSCULOSKELETAL: No cyanosis or clubbing. No pitting in the bilateral lower extremities. NEUROLOGIC: Grossly nonfocal. LABORATORY DATA: Bicarbonate 35. Basic metabolic profile is otherwise unremarkable with creatinine of 0.51. She did develop a significantly increased bicarbonate suggesting she is intravascularly d epleted. Blood cultures x2, urine culture, and respiratory virus panel are all negative to date. C MV PCR is still pending. ASSESSMENT: 1. Acute hypoxic respiratory failure. 2. Breast cancer, metastatic. 3. Minimal ground glass changes in the bilateral upper lobes on recent CT scan. 4. Atrial fibrillation with rapid ventricular response. 5. Dilated aortic root on CT scan. PLAN: I am following up on the CMV PCR. All empiric antibiotics can be continued for the time bein g, but after 7 days, these can be stopped. I doubt we are dealing with a typical pathogen. If anyt ana m, it is an atypical disease, and/or a viral illness. She is intravascularly depleted at this ti me and I do not think that additional doses of Lasix are warranted. Pulmonary will continue to foll ow while she remains in this location.
--- NOTE | 2017-05-21 13:32 | PDOC.PN ---
- Subjective Encounter Start Date: 05/21/17 Encounter Start Time: 13:30 Ms. Dotson does not have any complaints. She is breathing a little better today. She sat up in a chair today, and she did get very fatigues. - Objective Resuscitation Status: Resuscitation Status FULL:Full Resuscitation MAR Reviewed: Yes Vital Signs & Weight: Vital Signs (12 hours) Temp Pulse Resp BP BP BP Pulse Ox 05/21/17 11:17 96.2 F L 70 18 113/72 96 05/21/17 09:03 74 05/21/17 09:02 74 05/21/17 08:00 97.4 F L 74 16 124/77 112/66 122/73 92 L 05/21/17 03:47 97.8 F 83 20 130/85 94 L Weight Admit Weight 147 lb Weight 152 lb 2 oz I&O: 05/20/17 05/21/17 05/22/17 06:59 06:59 06:59 Intake Total 1700 1520 200 Balance 1700 1520 200 Result Diagrams: 05/21/17 03:55 05/21/17 03:55 Phys Exam - Physical Examination HEENT: PERRLA Respiratory: no wheezing, no rales, no rhonchi, clear to auscultation bilateral Cardiovascular: RRR, no significant murmur Gastrointestinal: soft, non-tender, positive bowel sounds Musculoskeletal: no edema Dx/Plan (1) Acute hypoxemic respiratory failure Code(s): J96.01 - ACUTE RESPIRATORY FAILURE WITH HYPOXIA Status: Acute Comment: prob due to pneumonia vs Pulm edema (2) Near syncope Status: Acute Comment: multifactorial (3) Physical deconditioning Code(s): R53.81 - OTHER MALAISE Status: Acute (4) Chronic a-fib Code(s): I48.2 - CHRONIC ATRIAL FIBRILLATION Status: Chronic Comment: no anticoag due to nose bleeds (5) Metastatic breast cancer Code(s): C50.919 - MALIGNANT NEOPLASM OF UNSP SITE OF UNSPECIFIED FEMALE BREAST Status: Acute (6) Hypertension Code(s): I10 - ESSENTIAL (PRIMARY) HYPERTENSION Status: Chronic - Plan * Acute Hypoxic respiratory failure- Continue Azithromycin, and Meropenem 2 more days * AFIB- her heart rate is stable * She is not on anticoagulation due to a history of severe nose bleeds * HTN- blood pressure is stable * Can begin to consider discharge planning, likely custodial .
[2017-05-21 13:44] VITALS: BMI 22.4
--- NOTE | 2017-05-21 15:26 | PQF ---
CLINICAL DOCUMENTATION IMPROVEMENT CLARIFICATION FORM: ICD-10 Updated PLEASE DO AN ADDENDUM TO THE PROGRESS NOTE WITH ANY DOCUMENTATION UPDATES OR ADDITIONS AND CARRY THROUGH TO DC SUMMARY. THANK YOU. DATE: 05/21/17 ATTN: Dr. Martínez Please exercise your independent, professional judgment in responding to the clarification form. Clinical indicators are provided on the bottom of this form for your review Please check appropriate box(s) to clarify if the following diagnosis has been ruled in our ruled out: UTI. ACUTE. [ ] Ruled in diagnosis [ ] Continue to treat [ ] Resolved [ X ] Ruled out diagnosis [ ] Cannot rule out diagnosis [ ] Other diagnosis [ ] Unable to determine For continuity of documentation, please document condition throughout progress notes and discharge summary. Thank You. CLINICAL INDICATORS - SIGNS / SYMPTOMS / LABS H&P: UA SHOWED 4-6 WBCs, NITRITE WAS NEGATIVE PN 05/13: UTI ACUTE. DC VANCOMYCIN ( NO ENTEROCOCCUS IN URINE CX) PN 05/15: SEPSIS D/T PNEUMONIA UTI ACUTE RISKS: H&P: HX SIGNIFICANT FOR BREAST CANCER, ON CHEMOTHERAPY, S/P RADIATION; HTN. ATRIAL FIB. TREATMENTS: CPOE 05/13: IV CEFTRIAXONE DC'D 05/14 CPOE 05/18: MEROPENEM 1 GM 100 ML IV Q8 HR (This form is maintained as a part of the permanent medical record) 2014 [employer] All Rights Reserved Kendal Monge RN, BSN [email or web address] Office: [phone] [facility]
[2017-05-21 20:10] LABS: CMV log 10 Quant 2.975 (.)
[2017-05-21] MEDS: Citalopram 20 MG TAB PO SCH (22:22)
[2017-05-22] MEDS: Meropenem 1 GM in Sodium Chloride 0.9% 100 ML IVPB SCH ×2 (05:55→14:27)
[2017-05-22] MEDS: Levothyroxine Sodium 25 MCG TAB PO SCH (05:55)
[2017-05-22 06:36] LABS: Anion Gap 7 mmol/L (10-20); BUN (Urea Nitrogen) 15 mg/dL (9.8-20.1); Calc. Creatinine Clearance 102 mL/min (70-130); Calcium 7.7 mg/dL (7.8-10.44); Carbon Dioxide 36 mmol/L (23-31); Chloride 94 mmol/L (98-107); Estimated GFR-MDRD Greater than 90; Magnesium 1.9 mg/dL (1.6-2.6); Phosphorus 2.5 mg/dL (2.3-4.7)
[2017-05-22] MEDS: Famotidine 20 MG TAB PO SCH ×2 (09:03→20:36)
[2017-05-22] MEDS: Docusate 100 MG CAP PO SCH ×2 (09:03→20:35)
[2017-05-22] MEDS: Lactinex Tablet PO SCH (09:04)
[2017-05-22] MEDS: Magnesium Oxide 400 MG TAB PO SCH ×2 (09:05→20:36)
[2017-05-22] MEDS: Metoprolol Tartrate 25 MG TAB PO SCH ×2 (09:05→20:36)
[2017-05-22] MEDS: Dexamethasone 1 MG TAB PO SCH ×2 (09:05→18:01)
[2017-05-22] MEDS: Digoxin 0.125 MG TAB PO SCH (09:08)
[2017-05-22] MEDS: Enoxaparin Sodium 30 MG/0.3 ML SYRINGE SC SCH (09:09)
--- NOTE | 2017-05-22 14:10 | PDOC.PN ---
- Subjective Encounter Start Date: 05/22/17 Encounter Start Time: 14:08 Patient seen at bedside. No overnight events, but still requiring substantial oxygen use. - Objective Resuscitation Status: Resuscitation Status FULL:Full Resuscitation MAR Reviewed: Yes Vital Signs & Weight: Vital Signs (12 hours) Temp Pulse Pulse Resp BP BP BP 05/22/17 11:55 97.0 F L 73 16 05/22/17 11:40 73 123/75 05/22/17 09:08 75 05/22/17 09:05 78 122/78 05/22/17 08:00 97.0 F L 73 16 05/22/17 07:50 97.0 F L 78 18 118/81 05/22/17 03:19 97.6 F 72 16 BP BP Pulse Ox Pulse Ox 05/22/17 11:55 123/75 97 05/22/17 11:40 97 05/22/17 09:08 05/22/17 09:05 05/22/17 08:00 05/22/17 07:50 109/65 122/78 93 L 05/22/17 03:19 133/72 92 L Weight Admit Weight 152 lb Weight 152 lb I&O: 05/21/17 05/22/17 05/23/17 06:59 06:59 06:59 Intake Total 1520 900 Balance 1520 900 Result Diagrams: 05/21/17 03:55 05/22/17 06:05 Phys Exam - Physical Examination Constitutional: NAD HEENT: moist MMs coarse breath sounds bilaterally positive murmur, irregular Gastrointestinal: soft Musculoskeletal: pulses present Neurological: moves all 4 limbs Psychiatric: A&O x 3 Dx/Plan (1) Acute hypoxemic respiratory failure Code(s): J96.01 - ACUTE RESPIRATORY FAILURE WITH HYPOXIA Status: Acute (2) Near syncope Status: Acute Comment: multifactorial (3) Physical deconditioning Code(s): R53.81 - OTHER MALAISE Status: Acute (4) Afib Code(s): I48.91 - UNSPECIFIED ATRIAL FIBRILLATION Status: Acute Comment: no anticoaulation due to nose bleeds (5) Metastatic breast cancer Code(s): C50.919 - MALIGNANT NEOPLASM OF UNSP SITE OF UNSPECIFIED FEMALE BREAST Status: Acute (6) Hypertension Code(s): I10 - ESSENTIAL (PRIMARY) HYPERTENSION Status: Chronic - Plan cont current plan of care, continue antibiotics, respiratory therapy, incentive spirometry, out of bed/ambulate, DVT proph w/lovenox * Continue with Meropenem empirically. * Had a positive CMV titer, however not markedly high. Will monitor to see if Gancycvolir needed given immunosupression. * Check CXR. If worsening infiltrates, may require CT of chest and bronch * Echocardiogram * Duonebs * Taxol on hold due to current condition.
[2017-05-22] MEDS: Meropenem 1 GM, Admixture Fee 1 EACH in Sodium Chloride 0.9% 100 ML IVPB SCH ×2 (14:34→22:22)
--- NOTE | 2017-05-22 14:39 | RAD ---
PA AND LATERAL CHEST: COMPARISON: 05/18/17 study. HISTORY: Dyspnea. FINDINGS: Heart size is enlarged. Right-sided MediPort catheter is present. Chronic lung changes are seen. No definite acute process. IMPRESSION: Cardiomegaly with chronic lung change. POS: [facility]
--- NOTE | 2017-05-22 14:58 | PRG ---
DATE OF SERVICE: 05/22/2017 SERVICE: Pulmonary Medicine. INTERVAL HISTORY: The patient is doing fine from a cardiovascular and respiratory standpoint. She denies any nausea, vomiting, diarrhea. She feels a little improved today. She is up walking around today with some assistance and did not have any significant dyspnea with that movement. Otherwise, she is in her usual state of health, and there were no overnight events. She did require oxygen in creased to 5 liters per minute. PHYSICAL EXAMINATION: VITAL SIGNS: Afebrile, pulse 75, blood pressure 123/75, respirations 16, saturation 97% on 5 liters nasal cannula. GENERAL: Patient is awake, alert, in no apparent distress. LUNGS: Decreased air entry. There is no prolonged expiratory phase, but crackles are present throu ghout bilateral lung layton. HEART: Normal rate, regular. ABDOMEN: Soft, nontender, nondistended. Bowel sounds positive. MUSCULOSKELETAL: No cyanosis or clubbing. No pitting in the bilateral lower extremities. NEUROLOGIC: Grossly nonfocal. LABORATORY DATA: Sodium 133 and stable. Bicarbonate 36 and down trending. Basic metabolic profile is, otherwise, unremarkable with a normal magnesium. CMV-PCR is positive. The titers are not terr ibly elevated. Respiratory virus panel, blood cultures x2, and urine culture unremarkable. IMAGING: Chest x-ray demonstrates a large gastric bubble. Cardiomegaly with widening of the radha l angle suggestive of either mediastinal lymphadenopathy or left atrial dilation. Interstitial erwin ings are full with engorged pulmonary vasculature. Otherwise, there is not any other significant ac [place] cardiopulmonary abnormality. ASSESSMENT: 1. Acute hypoxic respiratory failure. 2. Breast cancer, metastatic, but currently in remission. 3. Atrial fibrillation with rapid ventricular response. 4. Dilated aortic root on CT scan. 5. Minimal ground glass changes in the bilateral upper lobes on recent CT scan. PLAN: The chest x-ray from today really does not look too terribly convincing for any significant l lora disease that would require the patient to have oxygen. Echocardiogram will be repeated. We are going to pay particular interest to the aortic valve. If the echocardiogram is essentially normal, repeat CT scan may be considered in preparation for possible bronchoscopy. Early CMV pneumonitis i s a distinct possibility, but I am going to hold off on any therapy for that right now.
--- OUTSIDE RECORDS SUMMARY | 2017-05-22 17:34 | XMS | Clinical Summary ---
:1935 Author Organization [facility] Address [address] [place] [address] Phone Care Team Providers Name Role Phone [...] finding on imaging 01/09/2017 Gastric mass 01/09/2017 Social History Tobacco Use Types Packs/Day Years [...]
[2017-05-22] MEDS: Citalopram 20 MG TAB PO SCH (20:36)
[2017-05-23] MEDS: Meropenem 1 GM, Admixture Fee 1 EACH in Sodium Chloride 0.9% 100 ML IVPB SCH ×3 (05:35→21:37)
[2017-05-23] MEDS: Levothyroxine Sodium 25 MCG TAB PO SCH (05:35)
[2017-05-23] MEDS: Lactinex Tablet PO SCH (08:42)
[2017-05-23] MEDS: Digoxin 0.125 MG TAB PO SCH (08:42)
[2017-05-23] MEDS: Metoprolol Tartrate 25 MG TAB PO SCH ×2 (08:42→20:30)
[2017-05-23] MEDS: Dexamethasone 1 MG TAB PO SCH ×2 (08:42→17:42)
[2017-05-23] MEDS: Magnesium Oxide 400 MG TAB PO SCH ×2 (08:42→20:30)
[2017-05-23] MEDS: Docusate 100 MG CAP PO SCH ×2 (08:43→20:30)
[2017-05-23] MEDS: Famotidine 20 MG TAB PO SCH ×2 (08:43→20:30)
[2017-05-23] MEDS: Enoxaparin Sodium 30 MG/0.3 ML SYRINGE SC SCH (08:43)
--- NOTE | 2017-05-23 13:06 | PDOC.PN ---
- Subjective Encounter Start Date: 05/23/17 Encounter Start Time: 13:04 eating lunch no n/v still sob needs 4 lit of o2 - Objective Resuscitation Status: Resuscitation Status FULL:Full Resuscitation MAR Reviewed: Yes Vital Signs & Weight: Vital Signs (12 hours) Temp Pulse Resp BP BP BP BP 05/23/17 11:26 97.4 F L 76 18 111/70 101/56 L 05/23/17 08:42 81 135/86 05/23/17 08:00 98 F 81 16 05/23/17 07:42 98.0 F 82 18 135/86 05/23/17 04:00 98.0 F 85 16 130/85 05/23/17 03:52 BP Pulse Ox 05/23/17 11:26 113/65 86 L 05/23/17 08:42 05/23/17 08:00 98 05/23/17 07:42 100 05/23/17 04:00 97 05/23/17 03:52 97 Weight Admit Weight 152 lb Weight 152 lb I&O: 05/22/17 05/23/17 05/24/17 06:59 06:59 06:59 Intake Total 900 1020 Balance 900 1020 Result Diagrams: 05/21/17 03:55 05/22/17 06:05 Phys Exam - Physical Examination Constitutional: NAD HEENT: PERRLA Neck: no JVD coarse bs Cardiovascular: no significant murmur Gastrointestinal: soft Musculoskeletal: pulses present Neurological: moves all 4 limbs Psychiatric: A&O x 3 Dx/Plan (1) Acute hypoxemic respiratory failure Code(s): J96.01 - ACUTE RESPIRATORY FAILURE WITH HYPOXIA Status: Acute (2) UTI (urinary tract infection) due to Enterococcus Code(s): N39.0 - URINARY TRACT INFECTION, SITE NOT SPECIFIED; B95.2 - ENTEROCOCCUS THE CAUSE OF DISEASES CLASSIFIED ELSEWHERE Status: Acute (3) Physical deconditioning Code(s): R53.81 - OTHER MALAISE Status: Acute (4) Afib Code(s): I48.91 - UNSPECIFIED ATRIAL FIBRILLATION Status: Acute Comment: no anticoaulation due to nose bleeds (5) Hypothyroidism Code(s): E03.9 - HYPOTHYROIDISM, UNSPECIFIED Status: Acute (6) Metastatic breast cancer Code(s): C50.919 - MALIGNANT NEOPLASM OF UNSP SITE OF UNSPECIFIED FEMALE BREAST Status: Acute (7) Near syncope Status: Acute Comment: multifactorial (8) Hypophosphatasia Code(s): E83.39 - OTHER DISORDERS OF PHOSPHORUS METABOLISM Status: Acute - Plan * cont current plan of care, continue antibiotics, respiratory therapy, incentive spirometry, out of bed/ambulate, DVT proph w/lovenox * Continue with Meropenem empirically. * Had a positive CMV titer, however not markedly high. Will monitor to see if Gancycvolir needed given immunosupression. * Check CXR. If worsening infiltrates, may require CT of chest and bronch * f/u echo * Duonebs * Taxol on hold due to current condition. * pulm input appreciated
[2017-05-23] MEDS: Citalopram 20 MG TAB PO SCH (20:30)
[2017-05-24] MEDS: Levothyroxine Sodium 25 MCG TAB PO SCH (05:22)
[2017-05-24] MEDS: Meropenem 1 GM, Admixture Fee 1 EACH in Sodium Chloride 0.9% 100 ML IVPB SCH ×3 (05:23→21:39)
[2017-05-24] MEDS: Dexamethasone 1 MG TAB PO SCH ×2 (08:10→17:15)
[2017-05-24] MEDS: Lactinex Tablet PO SCH (08:59)
[2017-05-24] MEDS: Docusate 100 MG CAP PO SCH ×2 (08:59→21:38)
[2017-05-24] MEDS: Famotidine 20 MG TAB PO SCH ×2 (09:00→21:38)
[2017-05-24] MEDS: Magnesium Oxide 400 MG TAB PO SCH ×2 (09:00→21:38)
[2017-05-24] MEDS: Metoprolol Tartrate 25 MG TAB PO SCH ×2 (09:00→21:38)
[2017-05-24] MEDS: Enoxaparin Sodium 30 MG/0.3 ML SYRINGE SC SCH (09:04)
[2017-05-24] MEDS: Digoxin 0.125 MG TAB PO SCH (09:07)
--- NOTE | 2017-05-24 09:16 | PDOC.PN ---
- Subjective Encounter Start Date: 05/24/17 Encounter Start Time: 08:00 Subjective: SPOKE WITH PATIENT AND HER DAUGHTER, SHE IS BETTER TODAY. - Objective Resuscitation Status: Resuscitation Status FULL:Full Resuscitation MAR Reviewed: Yes Vital Signs & Weight: Vital Signs (12 hours) Temp Pulse Resp BP BP BP BP 05/24/17 09:07 76 05/24/17 08:59 87 121/74 05/24/17 07:59 98 F 77 18 112/60 109/60 111/65 05/24/17 07:44 98 F 76 18 05/24/17 04:00 97.9 F 77 18 131/81 05/24/17 01:19 05/24/17 00:00 97.9 F 67 18 112/70 Pulse Ox 05/24/17 09:07 05/24/17 08:59 05/24/17 07:59 97 05/24/17 07:44 96 05/24/17 04:00 05/24/17 01:19 97 05/24/17 00:00 97 Weight Admit Weight 152 lb Weight 152 lb I&O: 05/23/17 05/24/17 05/25/17 06:59 06:59 06:59 Intake Total 1020 800 Balance 1020 800 Result Diagrams: 05/21/17 03:55 05/22/17 06:05 Phys Exam - Physical Examination Constitutional: NAD HEENT: PERRLA, moist MMs, sclera anicteric Neck: supple, full ROM Respiratory: no wheezing, no rhonchi Cardiovascular: irregular Gastrointestinal: soft, non-tender Musculoskeletal: no edema Neurological: non-focal, moves all 4 limbs Psychiatric: normal affect, A&O x 3 Dx/Plan (1) Electrolyte abnormality Code(s): E87.8 - OTH DISORDERS OF ELECTROLYTE AND FLUID BALANCE, NEC Status: Acute Comment: hypophosphatemia/ hypomagnessemia (2) Hypoxemia Code(s): R09.02 - HYPOXEMIA Status: Acute (3) Near syncope Status: Acute Comment: multifactorial (4) Physical deconditioning Code(s): R53.81 - OTHER MALAISE Status: Acute - Plan cont current plan of care, plan discussed w/ family, continue antibiotics, respiratory therapy, incentive spirometry STABLE CONDITION, EF 55-60%, DEFER TO PULMONARY AT THIS TIME. * .
--- NOTE | 2017-05-24 12:20 | PRG ---
DATE OF SERVICE: 05/23/2017 SERVICE: Pulmonary Medicine. INTERVAL HISTORY: The patient is actually suggesting that she is breathing more comfortably. She d enies any current fevers, chills, nausea or vomiting. She was up into a chair twice yesterday with meals. She was able to ambulate with significant assistance. It takes 2 people to help her get out of bed into chair. PHYSICAL EXAMINATION: VITAL SIGNS: Afebrile, pulse 82, blood pressure 135/86, respirations 18, saturation 100% on 4 liter s nasal cannula. GENERAL: The patient is awake and alert, no apparent distress. LUNGS: Excellent air entry. There is no prolonged expiratory phase, but I do appreciate crackles. HEART: Normal rate, regular. ABDOMEN: Soft, nontender, and nondistended. Bowel sounds positive. MUSCULOSKELETAL: No cyanosis or clubbing. No pitting in the bilateral lower extremities. NEUROLOGIC: Grossly nonfocal. IMAGING: Echocardiogram demonstrates a normal ejection fraction, 2 out of 3 diastolic dysfunction, moderate mitral regurgitation and mild aortic regurgitation. ASSESSMENT: 1. Acute hypoxic respiratory failure. 2. Breast cancer, metastatic, but currently in remission. 3. Atrial fibrillation with rapid ventricular response. 4. Acute on chronic diastolic and valvular heart failure. 5. Minimal ground glass changes in the bilateral upper lobes on recent CT scan. 6. Clearing infiltrate based on serial chest x-rays. DISCUSSION AND PLAN: Because the chest x-ray is improving, no diagnostic procedures are going to be considered at this time. Ultimately, she will need to follow with Dr. Ojeda in the outpatient [facility]. He will resume care on Friday. Dr. Barber will follow through the weekend. I am doubtful yary t the CMV titer represents a true infection, but if the patient's oxygen requirements continue to in crease, we may need to consider a repeat CT scan plus or minus bronchoscopy. Pulmonary will continu e to follow while she remains in house.
--- NOTE | 2017-05-24 14:24 | PRG ---
DATE OF SERVICE: 05/24/2017 SUBJECTIVE: She is better. She is less short of breath. No fever or chills. OBJECTIVE: VITAL SIGNS: Temperature is 98, blood pressure 121/74, sats are 94% on 4 liters. I's and O's are 1 02 in, do not much of an output. CHEST: Reveals minimal crackles if any. CARDIAC: Normal S1 and S2. No gallops. IMAGING DATA: Echo shows diastolic dysfunction with normal systolic function. The last chest x-ray showed no acute infiltrates. Cardiomegaly. IMPRESSION AND PLAN: Diastolic dysfunction, respiratory failure. No obvious pneumonia on x-ray. I would suggest discontinue meropenem. Continue supportive care. Hopefully, she can be discharged h ome in the next several days.
[2017-05-24] MEDS: Citalopram 20 MG TAB PO SCH (21:38)
[2017-05-25 05:57] LABS: #Basophils 0.1 thou/uL (0.0-0.2); #Eosinphils 0.1 thou/uL (0.0-0.7); #Lymphocytes 1.1 thou/uL (1.20-3.40); #Monocytes 0.5 thou/uL (0.11-0.59); #Neutrophils 7.1 thou/uL (1.40-6.50); %Basophils 0.7 % (0.0-1.0); %Eosinophils 0.7 % (0.0-10.0); %Lymphocytes 12.5 % (21.0-51.0); Mean Platelet Volume 7.2 fL (7.4-10.4); Red Blood Cell (RBC) Count 3.16 mill/uL (4.20-5.40); White Blood Cell (WBC) Count 8.9 thou/uL (4.8-10.8)
[2017-05-25] MEDS: Meropenem 1 GM, Admixture Fee 1 EACH in Sodium Chloride 0.9% 100 ML IVPB SCH ×2 (06:09→14:46)
[2017-05-25] MEDS: Levothyroxine Sodium 25 MCG TAB PO SCH (06:09)
[2017-05-25 06:21] LABS: ALT (SGPT) 103 U/L (8-55); AST (SGOT) 50 U/L (5-34); Alkaline Phosphatase 186 U/L (40-150); Anion Gap 6 mmol/L (10-20); BUN (Urea Nitrogen) 12 mg/dL (9.8-20.1); Bilirubin, Total 0.4 mg/dL (0.2-1.2); Calc. Creatinine Clearance 104 mL/min (70-130); Calcium 7.6 mg/dL (7.8-10.44); Carbon Dioxide 36 mmol/L (23-31); Chloride 94 mmol/L (98-107); Estimated GFR-MDRD Greater than 90; Protein, Total 4.5 g/dL (6.0-8.3)
[2017-05-25] MEDS: Dexamethasone 1 MG TAB PO SCH ×2 (08:59→16:29)
[2017-05-25] MEDS: Digoxin 0.125 MG TAB PO SCH (08:59)
[2017-05-25] MEDS: Lactinex Tablet PO SCH (08:59)
[2017-05-25] MEDS: Docusate 100 MG CAP PO SCH (08:59)
[2017-05-25] MEDS: Magnesium Oxide 400 MG TAB PO SCH (09:00)
[2017-05-25] MEDS: Famotidine 20 MG TAB PO SCH (09:00)
[2017-05-25] MEDS: Metoprolol Tartrate 25 MG TAB PO SCH (09:00)
[2017-05-25] MEDS: Enoxaparin Sodium 30 MG/0.3 ML SYRINGE SC SCH (09:00)
--- NOTE | 2017-05-25 11:29 | PDOC.PN ---
- Subjective Encounter Start Date: 05/25/17 Encounter Start Time: 11:25 Subjective: tired - Objective Resuscitation Status: Resuscitation Status FULL:Full Resuscitation Vital Signs & Weight: Vital Signs (12 hours) Temp Pulse Resp BP BP BP Pulse Ox 05/25/17 08:59 80 05/25/17 08:55 97.8 F 80 16 05/25/17 07:45 97.8 F 80 16 114/71 123/72 120/75 93 L 05/25/17 04:00 97.3 F L 83 20 113/68 95 05/25/17 00:00 98.7 F 75 20 121/75 91 L Weight Admit Weight 152 lb Weight 152 lb I&O: 05/24/17 05/25/17 05/26/17 06:59 06:59 06:59 Intake Total 800 1040 300 Balance 800 1040 300 Result Diagrams: 05/25/17 05:45 05/25/17 05:45 Phys Exam - Physical Examination HEENT: PERRLA Neck: no JVD Respiratory: no wheezing (decrease breath sound) Cardiovascular: irregular Gastrointestinal: soft, non-tender Musculoskeletal: edema present Neurological: non-focal, moves all 4 limbs Dx/Plan (1) Diastolic heart failure Code(s): I50.30 - UNSPECIFIED DIASTOLIC (CONGESTIVE) HEART FAILURE Status: Acute (2) Acute hypoxemic respiratory failure Code(s): J96.01 - ACUTE RESPIRATORY FAILURE WITH HYPOXIA Status: Acute (3) Near syncope Status: Acute Comment: multifactorial (4) Physical deconditioning Code(s): R53.81 - OTHER MALAISE Status: Acute (5) Chronic a-fib Code(s): I48.2 - CHRONIC ATRIAL FIBRILLATION Status: Chronic Comment: no anticoag due to nose bleeds (6) Hyponatremia Code(s): E87.1 - HYPO-OSMOLALITY AND HYPONATREMIA Status: Acute (7) Hypothyroidism Code(s): E03.9 - HYPOTHYROIDISM, UNSPECIFIED Status: Chronic - Plan cont current plan of care seen by pulmo, note recommended dc antibiotic -: off oxygen ,sat- 95 % at room air -: bmp in am, discussed with RN -: plan placement -: family at bedside * .
--- NOTE | 2017-05-25 14:44 | PRG ---
DATE OF SERVICE: 05/25/2017 SUBJECTIVE: This morning, she is better. She is less short of breath, less cough. In fact, I am told that oxygen level is 97% on room air. PHYSICAL EXAMINATION: VITAL SIGNS: Blood pressure 114/71, sats are 95% on room air, pulse 80, temperature 97. CHEST: Decreased breath sounds. No wheezing. CARDIAC: Normal S1, S2. No gallops. ABDOMEN: Soft, no masses. LABORATORY DATA: White count 8000, H\T\H 9 and 30, platelet count 185. Electrolytes are normal. A ST 103. IMPRESSION: 1. Respiratory failure, resolved. 2. Hypoxemia, improved. 3. Atrial fibrillation 4. Breast cancer with metastasis. PLAN: Continue PT and supportive care. Disposition as per Oncology.
[2017-05-25 16:48] VITALS: BP 112/65; TEMP 97.8
--- NOTE | 2017-05-25 23:34 | DIS ---
DATE OF ADMISSION: 05/10/2017 DATE OF DISCHARGE: 05/25/2017 FINAL DIAGNOSES: 1. Acute hypoxic respiratory failure likely secondary to diastolic dysfunction. 2. History of near syncope. 3. Atrial fever. 4. Hypertension. 5. Dyslipidemia. 6. Hyponatremia. 7. Hyperthyroidism. 8. History of breast cancer with radiation and chemotherapy and surgery and radiation, [id number] rate mitral regurgitation. COURSE IN THE SUGGS: Ms. Dotson is an 82-year-old white female who was admitted on 05/10/2017 for sarah r syncope. She had been followed by Cardiology and Pulmonology during her admission and echocardiog jewell done showed diastolic dysfunction, normal EF, initially started antibiotics, but imaging done ap parently were not compatible with infection or pneumonia, but Pulmonology recommended that antibioti cs can be discontinued. Her oxygenation had also improved, but currently not requiring nasal cannul a. She had remained to be in decondition state that being transferred to rehab for further th erapy. She had had a CAT scan done during this admission which showed no PE. Abdominal CT had also been done of the abdomen showed stable biliary dilatation with small duodenal diverticula, stable m ild ascites stomach. She is being transferred to rehab and being discharged from the followin g medication to continue Tylenol as needed, Floranex p.r.n., Dulcolax, Tums, citalopram 20 mg at bed time, dexamethasone 10 mg p.o. b.i.d., digoxin 0.125 daily, diltiazem 240 mg p.o. daily, Lovenox 30 mg subcutaneous daily, famotidine 20 b.i.d., Synthroid 25 mcg p.o. daily, p.r.n. loperamide 20 0 b.i.d., metoprolol 25 b.i.d. She also have her influenza vaccination during this admission to [facility] up with her PCP, Dr. Serra. Echocardiogram done showed EF of 60-65% with grade 2-3 diastolic d ysfunction, moderate dilated left atrium, moderately enlarged right atrium size, [id number] MR , mild aortic regurgitation, moderate tricuspid regurgitation, small pericardial effusion, at 35 mmHg. White count 8.9, hemoglobin 9.7, and platelets 185. Sodium 132, potassium 4.4, chloride 9 4, CO2 of 36, BUN 12, creatinine 0.46, calcium 7.6, AST 103, ALT 186. Blood culture was negative. Urine culture showed skin xu. did not show any DVT. CT of the chest showed no PE.
== END 2017-05-25 17:15 | DRG 308 ==
LOC: ERS 12:49 → 2NO 18:00 → ONC 05-17 14:48
PROVIDERS: ADMIT Internal Medicine; ATTEND Internal Medicine
DX: I48.2 Chronic atrial fibrillation (principal); J96.01 Acute respiratory failure with hypoxia; I50.33 Acute on chronic diastolic (congestive) heart failure; C78.6 Secondary malignant neoplasm of retroperitoneum and peritoneum; E44.0 Moderate protein-calorie malnutrition; E87.1 Hypo-osmolality and hyponatremia; E83.42 Hypomagnesemia; I11.0 Hypertensive heart disease with heart failure; C50.919 Malignant neoplasm of unspecified site of unspecified female breast; E83.39 Other disorders of phosphorus metabolism; R55 Syncope and collapse; I08.3 Combined rheumatic disorders of mitral, aortic and tricuspid valves; E03.9 Hypothyroidism, unspecified; Z23 Encounter for immunization; E78.5 Hyperlipidemia, unspecified; Z90.10 Acquired absence of unspecified breast and nipple; Z51.5 Encounter for palliative care; Z88.1 Allergy status to other antibiotic agents; Z88.2 Allergy status to sulfonamides; Z91.048 Other nonmedicinal substance allergy status; M19.90 Unspecified osteoarthritis, unspecified site; Z68.22 Body mass index [BMI] 22.0-22.9, adult
CPT/HCPCS: 36415; 70450; 70553; 71010; 71020; 71275; 74177; 80048; 80053; 80069; 81003; 81015; 82553; 83735; 83880; 84100; 84484; 85025; 87040; 87086; 87497; 87633; 87798; 90471; 90682; 93005; 93306; 96361; 96365; A4216; G0008; G8978-GP-CJ; G8978-GP-CL; G8979-GP-CI; G8979-GP-CJ; J0696; J1160; J1642; J1650; J1940; J2185; J3370; J3475; J7050; J8540; Q2036

== ENCOUNTER 2017-06-09 15:26 | Inpatient (IN) | payer MEDICARE, OTHER ==
--- NOTE | 2017-06-09 16:10 | RAD ---
PORTABLE CHEST 1 VIEW: Date: 06/09/17 Time: 1552 hours HISTORY: Chest pain. FINDINGS/IMPRESSION: Comparison made with exam of 05/22/17. The heart size is enlarged. Right-sided Port-A-Cath remains in place. There is increased density in the left lower lung which appears new compared to the previous study. No pneumothoraces are seen. POS: [facility]
[2017-06-09 16:24] LABS: Hematocrit 21.1 % (36.0-47.0); Mean Platelet Volume 7.2 fL (7.4-10.4); Red Blood Cell (RBC) Count 2.12 mill/uL (4.20-5.40)
[2017-06-09 16:29] LABS: Prothrombin Time 15.4 SEC (12.0-14.7)
[2017-06-09 16:32] LABS: Lactic Acid - Sepsis 3.5 mmol/L (0.5-2.2)
[2017-06-09 16:37] LABS: CK (CPK) 21 U/L (29-168); Lipase 42 U/L (8-78)
[2017-06-09 16:42] LABS: Troponin I Less than 0.010 ng/mL (< 0.028)
[2017-06-09 16:43] LABS: Anisocytosis MODERATE=16-30 cells (100X) (0-5/hpf); Band 4 % (5-11); Elliptocytes SLIGHT = 2-5 cells (100X) (0-1/hpf); Metamyelocyte 1 % (0-0); Myelocyte 1 % (0-0); Neutrophil 73 % (42-75); Nucleated RBC 8 % (0); Ovalocytes SLIGHT = 2-5 cells (100X) (0-1/hpf); Polychromasia MODERATE = 3-4 cells (100X) (0-2/hpf); Schistocytes SLIGHT = 2-5 cells (100X) (0-1/hpf)
--- NOTE | 2017-06-09 17:15 | CT ---
CT PULMONARY ANGIOGRAM WITH IV CONTRAST AND 3D POSTPROCESSING: Date: 06/09/17 HISTORY: Chest pain. History of breast cancer. FINDINGS: Comparison made with exam of 05/10/17. There is good contrast opacification of the pulmonary arterial vasculature without filling defects t o suggest pulmonary embolism. There are vascular calcifications without evidence of aneurysmal dilat ation of the thoracic aorta. No pleural or pericardial effusions are seen. There are mild dependent changes in the lung bases. No pneumothoraces are seen. There is redemonstration of free fluid in the upper abdominal tomograms as on 05/10/17. IMPRESSION: No CT evidence of pulmonary embolism. POS: [facility]
--- OUTSIDE RECORDS SUMMARY | 2017-06-09 17:48 | XMS | Clinical Summary ---
:1935 Author Organization [facility] Address [address] [place] [address] Phone Care Team Providers Name Role Phone [...]
[2017-06-09] MEDS ORDERED: Acetaminophen 325 MG TAB PO PRN (20:38)
[2017-06-09] MEDS ORDERED: Ondansetron ODT 4 MG TAB SL PRN (20:38)
[2017-06-09] MEDS ORDERED: HYDROcodone/Acetaminophen 5/325 mg Tablet PO PRN ×2 (20:38)
[2017-06-09] MEDS ORDERED: Ondansetron HCl/PF 4 MG/2 ML Vial IVP PRN (20:38)
[2017-06-09] MEDS ORDERED: Sodium Chloride 0.9% 1,000 ML IV SCH (20:40)
[2017-06-09 21:21] LABS: Troponin I 0.013 ng/mL (< 0.028)
[2017-06-10 00:48] LABS: Hematocrit 27.8 % (36.0-47.0)
[2017-06-10] MEDS ORDERED: Milk Of Magnesia 30 ML UDCUP PO PRN (00:59)
[2017-06-10] MEDS ORDERED: HYDROcodone/Acetaminophen 5/325 mg Tablet PO PRN ×2 (00:59)
[2017-06-10] MEDS ORDERED: hydrALAZINE 20 MG/ML VIAL SLOW IVP PRN (00:59)
[2017-06-10] MEDS ORDERED: Ondansetron HCl/PF 4 MG/2 ML Vial IVP PRN (00:59)
[2017-06-10] MEDS ORDERED: Ondansetron ODT 4 MG TAB PO PRN (00:59)
[2017-06-10 01:12] LABS: Troponin I 0.024 ng/mL (< 0.028)
[2017-06-10] MEDS: Sodium Chloride 0.9% 1,000 ML IV SCH ×3 (03:07→22:20)
[2017-06-10] MEDS: Levothyroxine Sodium 25 MCG TAB PO SCH (06:01)
--- NOTE | 2017-06-10 06:02 | HP ---
PRIMARY CARE PHYSICIAN: Allie Serra MD CHIEF COMPLAINT: Chest pain and generalized weakness. HISTORY OF PRESENT ILLNESS: Ms. Dotson is a pleasant 82-year-old female that has a history of metast atic breast cancer. She also has a history of chronic atrial fibrillation, in which she is not on a nticoagulation and hypertension. She was recently treated in our hospital less than a month ago due to hypoxic respiratory failure, thought to be secondary to diastolic dysfunction. There was also s ome possible component of pneumonitis as well. She had a prolonged hospital stay, was very decondit ioned and was discharged to the inpatient rehabilitation facility. The patient also has a history o f chronic anemia as well. The patient's daughter who is at the bedside acts as the historian and sa ys that she was very weak in rehabilitation and not progressing as they would have liked and was dis charged on the actual day of admission on Friday and she was still quite weak and one of her daughte rs was helping her into a wheelchair with a belt and when she got in the wheelchair, the patient clu tched her chest and was complaining of chest pain. The patient's daughter was concerned that she co uld be having a heart attack, so she brought her into the hospital. In the ER, it was noted that he r hemoglobin was much lower than usual at 6.9. Her baseline is approximately 8-9 and she is being a dmitted for acute symptomatic anemia. The patient has history of severe epistaxis, but her daughter says she has not had any recent bad nosebleeds. She did have a nosebleed a few days ago, but it wa s very small. There has been no mention of any blood in the stool or dark stools or any type of abd ominal pain. I am seeing the patient after she has received 2 units of packed RBCs and she states t hat she is feeling much better. Denies any chest pain and her dyspnea has actually improved. REVIEW OF SYSTEMS: The patient is currently quite fatigued and very lethargic and therefore, the en tire review of systems was not obtained. PAST MEDICAL HISTORY: Significant for metastatic breast cancer, hypertension, hyperlipidemia, and a trial fibrillation. PAST SURGICAL HISTORY: She has had a MediPort placed, mastectomy, and left shoulder surgery. ALLERGIES: To ADHESIVES, AMOXICILLIN, AUGMENTIN, CIPRO, SULFA, and TRIMETHOPRIM. FAMILY HISTORY: No history of any heritable diseases. SOCIAL HISTORY: She is a nonsmoker, nondrinker. She is . Her is her surrogate yoli flemingr. Her daughter is a bit concerned about this. However, because she feels that the patien t's is very hard of hearing and also may have some early dementia himself. However, she is concerned that the patient herself is a bit too much influence by her and is not aware of so me of his deficits. With regards to code status, the daughter who is present does not know the code status. MEDICATIONS: The medications from her previous admission include, Tylenol 650 mg q.4 h, Fosamax 35 mg once a week, Dulcolax 10 mg per rectum daily, calcium carbonate 1 tablet and that is the 500 mg t wice a day, vitamin D3 of 1000 units every evening, citalopram 20 mg at bedtime, cranberry 300 mg t. i.d., vitamin B12 of 1000 mcg daily, Decadron 2 mg twice a day, Lanoxin 0.125 mg daily, Cardizem 240 mg daily, docusate 100 mg daily, Pepcid 20 mg twice daily, Floranex 1 tablet daily, levothyroxine 2 5 mcg daily, magnesium oxide 400 mg twice a day, Imodium 2 mg as needed, Lopressor 25 mg twice daily , and multivitamin 1 tablet daily. PHYSICAL EXAMINATION: GENERAL: She is a bit drowsy, but arousable. VITAL SIGNS: Blood pressure was 136/60, heart rate 111, respiratory rate of 18, temperature is 98.7 . HEENT: Her pupils are equal, round, and reactive. Extraocular muscles are intact. Her sclerae are anicteric. Throat, she has got very dry mucous membranes. There are no oral lesions. NECK: There is no adenopathy, no bruits. LUNGS: Clear except for some mild basilar rales. CARDIOVASCULAR: She has a normal S1 and S2. No S3 or S4. No murmurs, clicks, no rubs. ABDOMEN: Soft, obese, nontender, nondistended. Positive for bowel sounds. No rebound or guarding. EXTREMITIES: She has got some trace pedal edema. NEUROLOGIC: The exam is nonfocal. LABORATORY RESULTS: White blood cell count is 7, hemoglobin 6.9, hematocrit is 21.1, platelet count is 122,000. INR is 1.2. She has had 2 sets of troponins, which are negative. ASSESSMENT AND PLAN: This is an 82-year-old female that has a history of metastatic breast cancer. Her last cycle of chemotherapy was about a month ago with Taxol. She presents with an acute drop i n her H and H and likely her symptoms are related to the drop in hemoglobin. It is unclear whether or not this represents bleeding such as a GI bleed or epistaxis. However, it does not appear likely it may be that she is not producing with regards to her overall demand. She has been transfused 2 units. We will continue to monitor her H and H. We will check another one later on this morning. We will get stool guaiacs, place her on a proton pump inhibitor and notify Dr. Willams that the darren ent is admitted. We will continue physical therapy and reassess her overall in the a.m.
[2017-06-10 07:11] LABS: Hematocrit 27.9 % (36.0-47.0); Mean Platelet Volume 7.4 fL (7.4-10.4); Red Blood Cell (RBC) Count 2.93 mill/uL (4.20-5.40); White Blood Cell (WBC) Count 10.2 thou/uL (4.8-10.8)
[2017-06-10 08:05] LABS: Anisocytosis SLIGHT = 6-15 cells (100X) (0-5/hpf); Band 2 % (5-11); Myelocyte 2 % (0-0); Neutrophil 58 % (42-75); Nucleated RBC 3 % (0); Polychromasia MODERATE = 3-4 cells (100X) (0-2/hpf)
[2017-06-10] MEDS ORDERED: FLU VACC TS2017-18 (>65YR) 0.5 ML SYRINGE IM ONE (09:00)
[2017-06-10] MEDS ORDERED: Metoprolol Tartrate 25 MG TAB PO SCH (09:00)
[2017-06-10] MEDS: Digoxin 0.125 MG TAB PO SCH (09:07)
[2017-06-10] MEDS: Docusate 100 MG CAP PO SCH ×2 (09:16→20:59)
[2017-06-10] MEDS: Multivit, Therapeutic 1 TAB PO SCH (09:16)
[2017-06-10] MEDS ORDERED: Dexamethasone 4 MG TAB PO SCH (12:30)
[2017-06-10 13:45] LABS: ALT (SGPT) 63 U/L (8-55); AST (SGOT) 23 U/L (5-34); Alkaline Phosphatase 75 U/L (40-150); Anion Gap 10 mmol/L (10-20); BUN (Urea Nitrogen) 47 mg/dL (9.8-20.1); Bilirubin, Total 0.3 mg/dL (0.2-1.2); Calc. Creatinine Clearance 96 mL/min (70-130); Calcium 7.2 mg/dL (7.8-10.44); Carbon Dioxide 23 mmol/L (23-31); Chloride 101 mmol/L (98-107); Estimated GFR-MDRD Greater than 90; Globulin 1.5 g/dL (2.4-3.5); Magnesium 1.9 mg/dL (1.6-2.6); Phosphorus 2.9 mg/dL (2.3-4.7); Protein, Total 3.9 g/dL (6.0-8.3)
[2017-06-10] MEDS ORDERED: Digoxin 0.25 MG TAB PO SCH (14:00)
[2017-06-10] MEDS: Metoprolol Tartrate 25 MG TAB PO SCH ×2 (15:23→21:02)
--- NOTE | 2017-06-10 16:20 | CON ---
DATE OF CONSULTATION: 06/10/2017 REASON FOR CONSULTATION: Breast cancer. HISTORY OF PRESENT ILLNESS: Ms. Dotson is an 82-year-old female who has metastatic breast cancer. S he received her last treatment of chemotherapy on 05/06/2017. Shortly thereafter, she was admitted to this facility for shortness of breath. She was in atrial fibrillation, but was not anticoagulate d secondary to her chronic anemia, felt that her respiratory failure was due to diastolic dysfunctio n. She was deconditioned on that hospital stay and so went to the Rehab where she has been for the last 2 weeks. She was discharged on Friday afternoon, went home, she began to have chest pain, so s he was brought to the emergency room. Routine labs showed a hemoglobin of 6.9. She denies any blee ding. She has occasional nosebleeds, but none over the past week or so. She was transfused 2 units of packed RBCs. Had discussion with the daughter, the patient did well for the first week rehab, b ut for the second week she became extremely fatigued. She has a poor appetite and has had a general declining in overall condition. Since admission, she has had issues with low blood pressure and he r heart rate has been labile as well. PAST MEDICAL HISTORY: 1. Metastatic breast cancer. 2. Chronic atrial fibrillation. 3. Hypertension. 4. Hyperlipidemia. 5. Chronic anemia. PAST SURGICAL HISTORY: 1. Hysterectomy. 2. Rotator cuff surgery. 3. Pelvic relaxation surgery. 4. Gastrojejunostomy. 5. Mastectomy. ALLERGIES: AMOXICILLIN, CIPRO and ADHESIVE. CURRENT MEDICATIONS: 1. Celexa 20 mg daily. 2. B12 daily. 3. Decadron 2 mg b.i.d. 4. Lanoxin daily. 5. Cardizem-CD daily. 6. Colace daily. 7. Apresoline p.r.n. 8. Synthroid daily. 9. Lopressor t.i.d. 10. Protonix daily. FAMILY HISTORY: Her mother had colon cancer. Her brother had leukemia and a daughter has breast ca ncer. SOCIAL HISTORY: , has 2 children, lives with her spouse. REVIEW OF SYSTEMS: Constitutional: No fever, chills, or night sweats. Positive for fatigue and wea kness. Eyes: No blurred or double vision. ENT: No pain, hoarseness, sore throat, or dysphagia. Ca rdiovascular: No chest pain, palpitations or syncope. Respiratory: No shortness breath, dyspnea o n exertion or orthopnea. Gastrointestinal: No nausea, vomiting, diarrhea, constipation or abdomina l pain. Genitourinary: No dysuria or hematuria. Musculoskeletal: No joint or back pain. Skin: No rash or pruritus. Hematologic: No bleeding, bruising or clotting. Neurologic: Positive for weakn ess, no headache, numbness, tingling or seizure activity. Psychiatric: No anxiety or depression. PHYSICAL EXAMINATION: VITAL SIGNS: Temperature is 97.8, pulse is 92, respiratory rate is 18, BP is 118/73, O2 sat is 98% on room air. GENERAL: This is a deconditioned female in no acute distress. HEENT: Normocephalic, atraumatic. NECK: Supple. CARDIOVASCULAR: In a regular rate and rhythm. LUNGS: Clear. ABDOMEN: Soft, nontender, bowel sounds are positive. EXTREMITIES: She has 3+ pitting edema in bilateral lower extremities. SKIN: No rash. HEMATOLOGIC: No petechia or purpura. NEUROLOGICAL: Nonfocal. PSYCHIATRIC: The patient is somnolent, but answers questions appropriately. PERTINENT LABORATORY AND X-RAYS: Current WBCs are 10.2, hemoglobin 9.4, hematocrit 27.9, platelet c ount 112,000, 58% neutrophils, 32% lymphocytes. PT is 15.4, INR is 1.2, PTT is 23. Sodium is 130, potassium 3.8, chloride 101, CO2 is 23, BUN is 47, creatinine 0.51. Lactic acid is 1.6, calcium 7.2 , phosphorus 2.9, magnesium 1.9, total bilirubin is 0.3, AST is 23, ALT is 63, creatinine kinase is 75. Troponin is negative. BNP is 237.5, total protein is 3.9, albumin 2.4, globulin 1.5. IMPRESSION: 1. Metastatic breast cancer, currently under control. 2. Acute on chronic anemia. 3. Deconditioning. 4. Malnutrition. DISCUSSION: The case was discussed with Dr. Willams. The patient's cancer is not her primary concer n; it is much more concerning her deconditioning and malnutrition, and diastolic dysfunction. I did discuss with the patient and family that she will most likely never get treatment for her breast ca ncer due to her poor overall health unless she makes a remarkable turnaround. We will add Boost supp lements to her diet. The case was also discussed with Dr. Arnold who is adjusting her blood pressure medications. She may need a cardiology consult during this visit. Her anemia is most likely due t o her extremely poor nutritional status. Thank you for the consult. We will follow her hospital course remotely.
[2017-06-10] MEDS: Dexamethasone 4 MG TAB PO SCH (17:17)
--- NOTE | 2017-06-10 20:18 | PDOC.PN ---
- Subjective Encounter Start Date: 06/10/17 Encounter Start Time: 10:30 Patient seen and examined. Feels weak. No overnight events. ? black stool at home per family - Objective Resuscitation Status: Resuscitation Status CHEM:Chem Code Only MAR Reviewed: Yes Vital Signs & Weight: Vital Signs (12 hours) Temp Pulse Pulse Pulse Resp BP BP 06/10/17 20:00 97.5 F L 66 16 06/10/17 15:14 86 06/10/17 14:50 96.5 F L 94 16 06/10/17 09:16 92 118/73 06/10/17 09:07 92 108 H 103 H 138/80 BP BP BP Pulse Ox Pulse Ox Pulse Ox 06/10/17 20:00 92/58 L 99 06/10/17 15:14 06/10/17 14:50 105/57 L 97 06/10/17 09:16 06/10/17 09:07 165/89 H 98 97 I&O: 06/09/17 06/10/17 06/11/17 06:59 06:59 06:59 Intake Total 1590 Balance 1590 Result Diagrams: 06/11/17 03:55 06/11/17 03:55 EKG Reviewed by me: Yes (Afib) Phys Exam - Physical Examination Constitutional: NAD Respiratory: no wheezing, no rhonchi Cardiovascular: no rub, irregular Gastrointestinal: soft, non-tender, positive bowel sounds Musculoskeletal: no edema Dx/Plan (1) Symptomatic anemia Code(s): D64.9 - ANEMIA, UNSPECIFIED Status: Acute (2) Chronic a-fib Code(s): I48.2 - CHRONIC ATRIAL FIBRILLATION Status: Chronic Comment: no anticoag due to nose bleeds (3) Diastolic heart failure Code(s): I50.30 - UNSPECIFIED DIASTOLIC (CONGESTIVE) HEART FAILURE Status: Acute (4) Metastatic breast cancer Code(s): C50.919 - MALIGNANT NEOPLASM OF UNSP SITE OF UNSPECIFIED FEMALE BREAST Status: Acute - Plan cont current plan of care, DVT proph w/SCDs * Consult GI * Await Oncology input * AM labs * Change Metoprolol to 12.5 mg TID * Extra dose of Digoxin * Check digoxin level in AM * Change code status to Chem code - confirmed with family Review of Systems - Review of Systems Respiratory: negative: Cough, Dry, Shortness of Breath, Hemoptysis, SOB with Excertion, Pleuritic Pain, Sputum, Wheezing Cardiovascular: negative: Chest Pain, Palpitations, Orthopnea, Paroxysmal Noc. Dyspnea, Edema, Light Headedness, Other - Medications/Allergies Allergies/Adverse Reactions: Allergies Allergy/AdvReac Type Severity Reaction Status Date / Time adhesive Allergy Rash Verified 05/10/17 20:01 amoxicillin trihydrate Allergy Rash Verified 05/10/17 20:01 [From Augmentin] ciprofloxacin [From Cipro] Allergy Rash Verified 05/10/17 20:01 ciprofloxacin HCl Allergy Rash Verified 05/10/17 20:01 [From Cipro] potassium clavulanate Allergy Rash Verified 05/10/17 20:01 [From Augmentin] sulfamethoxazole Allergy Rash Verified 05/10/17 20:01 [From Bactrim] trimethoprim [From Bactrim] Allergy Rash Verified 05/10/17 20:01 Medications: Current Medications Acetaminophen (Tylenol) 650 mg PO Q4H PRN PRN Reason: Headache/Fever or Pain Hydrocodone Bitart/Acetaminophen ([place] 5/325) 1 tab PO Q4H PRN PRN Reason: Moderate Pain (4-6) Hydrocodone Bitart/Acetaminophen ([place] 5/325) 2 tab PO Q4H PRN PRN Reason: Severe Pain (7-10) Last Admin: 06/10/17 03:03 Dose: 2 tab Citalopram Hydrobromide (Celexa) 20 mg PO HS [facility] Cyanocobalamin (Vitamin B-12) 1,000 mcg PO DAILY [facility] Dexamethasone (Decadron) 2 mg PO BID-[facility] Last Admin: 06/10/17 17:17 Dose: 2 mg Digoxin (Lanoxin) 0.125 mg PO QAM [facility] Last Admin: 06/10/17 09:07 Dose: 0.125 mg Diltiazem HCl (Cardizem Cd) 120 mg PO BID [facility] Docusate Sodium (Colace) 100 mg PO BID [facility] Last Admin: 06/10/17 09:16 Dose: 100 mg Hydralazine HCl (Apresoline) 10 mg SLOW IVP Q4H PRN PRN Reason: Systolic BP > 180 Sodium Chloride (Normal Saline 0.9%) 1,000 mls @ 70 mls/hr IV .[id number] [facility] Last Admin: 06/10/17 19:44 Dose: Not Given Lactulose (Lactulose) 20 gm PO DAILYPRN PRN PRN Reason: Constipation Levothyroxine Sodium (Synthroid) 25 mcg PO 0600 [facility] Last Admin: 06/10/17 06:01 Dose: 25 mcg Magnesium Hydroxide (Milk Of Magnesium) 30 ml PO DAILYPRN PRN PRN Reason: Constipation Metoprolol Tartrate (Lopressor) 12.5 mg PO TID [facility] Last Admin: 06/10/17 15:23 Dose: 12.5 mg Multivitamins (Theragran) 1 tab PO DAILY [facility] Last Admin: 06/10/17 09:16 Dose: 1 tab Ondansetron HCl (Zofran Odt) 4 mg PO Q6H PRN PRN Reason: Nausea/Vomiting Ondansetron HCl (Zofran) 4 mg IVP Q6H PRN PRN Reason: Nausea/Vomiting Pantoprazole Sodium (Protonix) 40 mg PO BID [facility] Sodium Chloride (Flush - Normal Saline) 10 ml IVF Q12HR [facility] Last Admin: 06/10/17 09:19 Dose: 10 ml Sodium Chloride (Flush - Normal Saline) 10 ml IVF PRN PRN PRN Reason: Saline Flush
[2017-06-10] MEDS: Citalopram 20 MG TAB PO SCH (20:59)
[2017-06-10] MEDS ORDERED: diphenhydrAMINE 25 MG CAP PO PRN (21:52)
[2017-06-10] MEDS ORDERED: diphenhydrAMINE 25 MG CAP PO SCH (22:00)
[2017-06-11 04:15] LABS: IRF 0.604 Ratio (0.163-0.362); Reticulocyte Count 6.8 % (0.5-1.5)
[2017-06-11 04:27] LABS: Anion Gap 4 mmol/L (10-20); BUN (Urea Nitrogen) 32 mg/dL (9.8-20.1); BUN/Creatinine Ratio 71.11; Calc. Creatinine Clearance 109 mL/min (70-130); Calcium 7.4 mg/dL (7.8-10.44); Carbon Dioxide 27 mmol/L (23-31); Chloride 103 mmol/L (98-107); Estimated GFR-MDRD Greater than 90; Iron 45 ug/dL (50-170); Phosphorus 2.4 mg/dL (2.3-4.7)
[2017-06-11 04:35] LABS: Hematocrit 20.3 % (36.0-47.0)
[2017-06-11 04:42] LABS: Digoxin 1.31 ng/mL (0.8-2.0)
[2017-06-11] MEDS: Levothyroxine Sodium 25 MCG TAB PO SCH (05:42)
--- NOTE | 2017-06-11 05:59 | CON ---
DATE OF CONSULTATION: 06/10/2017 CHIEF COMPLAINT: Weakness. HISTORY OF PRESENT ILLNESS: Mr. Dotson is an 82-year-old woman with metastatic breast cancer who was admitted with symptomatic anemia with chest pain and weakness. She has had no nausea, vomiting, ab dominal pain, diarrhea, constipation or visible blood in the stool. She had her last chemotherapy o n 05/06. Her hemoglobin on presentation was noted to have decreased from a baseline of 8.6 to 6.9 c ompared to a few days before. She received 2 units of transfusion and her hemoglobin has improved t o 9.4. Currently, she has no abdominal pain, no ongoing chest pain, no shortness of breath, no othe r acute complaints. 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 PAST SURGICAL HISTORY: Hysterectomy, mastectomy, gastrojejunostomy, shoulder surgery. She had colo noscopy a year ago, which was negative. FAMILY HISTORY: Positive for colon cancer in her mother, her brother has leukemia, daughter had rafael ast cancer. SOCIAL HISTORY: No alcohol, tobacco or drugs. ALLERGIES: AMOXICILLIN, CIPROFLOXACIN, and ADHESIVE TAPE. MEDICATIONS: Currently include vitamin B12, dexamethasone, digoxin, diltiazem, docusate, levothyrox ine, metoprolol, multiple vitamin, and pantoprazole. REVIEW OF SYSTEMS: Negative x10 systems reviewed except as stated in the history of present illness . PHYSICAL EXAMINATION: VITAL SIGNS: Temperature 96.5, pulse 86, blood pressure 105/57. GENERAL: She is in no acute distress. She is alert and oriented to her name, place, and year. She is pale. HEENT: Eyes have no scleral icterus. Oropharynx is clear, without lesions. NECK: No cervical or supraclavicular lymphadenopathy. LUNGS: Clear to auscultation bilaterally. HEART: Regular rate and rhythm. ABDOMEN: Soft, nontender, nondistended. Bowel sounds are present. EXTREMITIES: Trace lower extremity edema. RECTAL: Reveals greenish brown stool in the rectal vault. There is no melena or red blood on my ex am. LABORATORY DATA: Hemoglobin is 9.4, white blood cell count 10.2, platelets 112, hemoglobin was 6.9 on presentation. INR 1.2. Creatinine 0.51 bilirubin 0.3, AST 23, ALT 63, alkaline phosphatase 75, and albumin 2.4. IMPRESSION: 1. Acute on chronic anemia. There is no overt gastrointestinal blood loss. She has a history of d uodenal stricture requiring gastrojejunostomy. Most of the iron absorption takes place in the duode num, so she may not be absorbing iron due to the gastrojejunostomy and duodenal stricture. The anem ia itself is likely multifactorial. There is no gross blood in the stool by rectal exam now. 2. Metastatic breast cancer with malignant stricture in the duodenum requiring gastrojejunostomy. RECOMMENDATIONS: 1. Check iron studies. If she is iron deficient, then she might ultimately require IV iron since h er duodenum is bypassed. For now, she did receive iron with blood transfusion. 2. I will sign off for now. Please call if GI can be of assistance.
[2017-06-11] MEDS: Dexamethasone 4 MG TAB PO SCH ×2 (09:28→17:19)
[2017-06-11] MEDS: Multivit, Therapeutic 1 TAB PO SCH (09:29)
[2017-06-11] MEDS: Digoxin 0.125 MG TAB PO SCH (09:30)
[2017-06-11] MEDS: Docusate 100 MG CAP PO SCH ×2 (09:30→20:28)
[2017-06-11] MEDS: Cyanocobalamin (Vitamin B-12) 1,000 MCG TAB PO SCH (09:30)
[2017-06-11] MEDS: Metoprolol Tartrate 25 MG TAB PO SCH ×3 (09:37→20:30)
[2017-06-11 11:46] VITALS: BMI 22.8
[2017-06-11] MEDS: Acetaminophen 325 MG TAB PO PRN (11:57)
--- NOTE | 2017-06-11 15:33 | PDOC.PN ---
- Subjective Encounter Start Date: 06/11/17 Encounter Start Time: 14:00 Patient seen and examined. No new complaints. No overnight events. Generally weak. Sleeping most of the time. - Objective Resuscitation Status: Resuscitation Status CHEM:Chem Code Only MAR Reviewed: Yes Vital Signs & Weight: Vital Signs (12 hours) Temp Pulse Pulse Pulse Pulse Pulse Resp 06/11/17 13:00 98.1 F 68 16 06/11/17 10:30 76 78 80 86 06/11/17 09:46 06/11/17 09:38 92 06/11/17 09:30 92 06/11/17 07:47 97.6 F 88 20 06/11/17 03:49 96.9 F L 77 16 BP BP BP BP BP BP Pulse Ox 06/11/17 13:00 83/50 L 99 06/11/17 10:30 82/54 L 91/65 74/54 L 80/58 L 06/11/17 09:46 105/60 06/11/17 09:38 06/11/17 09:30 06/11/17 07:47 99/62 97 06/11/17 03:49 93/55 L 98 Weight Admit Weight 155 lb Weight 155 lb I&O: 06/10/17 06/11/17 06/12/17 06:59 06:59 06:59 Intake Total 1590 960 350 Balance 1590 960 350 Result Diagrams: 06/11/17 03:55 06/11/17 03:55 Phys Exam - Physical Examination Constitutional: NAD Respiratory: no wheezing, no rhonchi Cardiovascular: no rub, irregular Gastrointestinal: soft, non-tender Musculoskeletal: edema present Neurological: non-focal, moves all 4 limbs Psychiatric: A&O x 3 Dx/Plan (1) Symptomatic anemia Code(s): D64.9 - ANEMIA, UNSPECIFIED Status: Acute Comment: suspected to be due to GI bleed - FOBT + (2) Chronic a-fib Code(s): I48.2 - CHRONIC ATRIAL FIBRILLATION Status: Chronic Comment: no anticoag due to nose bleeds, Rate better controlled. (3) Diastolic heart failure Code(s): I50.30 - UNSPECIFIED DIASTOLIC (CONGESTIVE) HEART FAILURE Status: Chronic Qualifiers: Heart failure chronicity: chronic Qualified Code(s): I50.32 - Chronic diastolic (congestive) heart failure (4) Metastatic breast cancer Code(s): C50.919 - MALIGNANT NEOPLASM OF UNSP SITE OF UNSPECIFIED FEMALE BREAST Status: Chronic (5) Anemia due to blood loss, acute Code(s): D62 - ACUTE POSTHEMORRHAGIC ANEMIA Status: Acute (6) Other issues per previous notes - Plan cont current plan of care, plan discussed w/ family, PT/OT, clinical social worker, DVT proph w/SCDs * GI/Oncology input * Change Cardizem to 30 ACHS due to low BP * AM labs * Transfuse 1 unit PRBC * AM labs * Repeat HH later today Review of Systems - Review of Systems Respiratory: negative: Cough, Dry, Shortness of Breath, Hemoptysis, SOB with Excertion, Pleuritic Pain, Sputum, Wheezing Cardiovascular: negative: Chest Pain, Palpitations, Orthopnea, Paroxysmal Noc. Dyspnea, Edema, Light Headedness, Other Gastrointestinal: negative: Nausea, Vomiting, Abdominal Pain, Diarrhea, Constipation, Melena, Hematochezia, Other - Medications/Allergies Allergies/Adverse Reactions: Allergies Allergy/AdvReac Type Severity Reaction Status Date / Time adhesive Allergy Rash Verified 05/10/17 20:01 amoxicillin trihydrate Allergy Rash Verified 05/10/17 20:01 [From Augmentin] ciprofloxacin [From Cipro] Allergy Rash Verified 05/10/17 20:01 ciprofloxacin HCl Allergy Rash Verified 05/10/17 20:01 [From Cipro] potassium clavulanate Allergy Rash Verified 05/10/17 20:01 [From Augmentin] sulfamethoxazole Allergy Rash Verified 05/10/17 20:01 [From Bactrim] trimethoprim [From Bactrim] Allergy Rash Verified 05/10/17 20:01 Medications: Current Medications Acetaminophen (Tylenol) 650 mg PO Q4H PRN PRN Reason: Headache/Fever or Pain Last Admin: 06/11/17 11:57 Dose: 650 mg Hydrocodone Bitart/Acetaminophen ([place] 5/325) 1 tab PO Q4H PRN PRN Reason: Moderate Pain (4-6) Hydrocodone Bitart/Acetaminophen ([place] 5/325) 2 tab PO Q4H PRN PRN Reason: Severe Pain (7-10) Last Admin: 06/10/17 03:03 Dose: 2 tab Citalopram Hydrobromide (Celexa) 20 mg PO HS NIK Last Admin: 06/10/17 20:59 Dose: 20 mg Cyanocobalamin (Vitamin B-12) 1,000 mcg PO DAILY [facility] Last Admin: 06/11/17 09:30 Dose: 1,000 mcg Dexamethasone (Decadron) 2 mg PO TID-[facility] Digoxin (Lanoxin) 0.125 mg PO QAM [facility] Last Admin: 06/11/17 09:30 Dose: 0.125 mg Diltiazem HCl (Cardizem) 30 mg PO ACHS [facility] Last Admin: 06/11/17 13:23 Dose: Not Given Diphenhydramine HCl (Benadryl) 25 mg PO Q8H PRN PRN Reason: SWELLING Docusate Sodium (Colace) 100 mg PO BID [facility] Last Admin: 06/11/17 09:30 Dose: 100 mg Hydralazine HCl (Apresoline) 10 mg SLOW IVP Q4H PRN PRN Reason: Systolic BP > 180 Lactulose (Lactulose) 20 gm PO DAILYPRN PRN PRN Reason: Constipation Levothyroxine Sodium (Synthroid) 25 mcg PO 0600 [facility] Last Admin: 06/11/17 05:42 Dose: 25 mcg Magnesium Hydroxide (Milk Of Magnesium) 30 ml PO DAILYPRN PRN PRN Reason: Constipation Metoprolol Tartrate (Lopressor) 12.5 mg PO TID [facility] Last Admin: 06/11/17 09:37 Dose: 12.5 mg Multivitamins (Theragran) 1 tab PO DAILY [facility] Last Admin: 06/11/17 09:29 Dose: 1 tab Ondansetron HCl (Zofran Odt) 4 mg PO Q6H PRN PRN Reason: Nausea/Vomiting Ondansetron HCl (Zofran) 4 mg IVP Q6H PRN PRN Reason: Nausea/Vomiting Pantoprazole Sodium (Protonix) 40 mg PO BID [facility] Last Admin: 06/11/17 09:30 Dose: 40 mg Sodium Chloride (Flush - Normal Saline) 10 ml IVF Q12HR [facility] Last Admin: 06/11/17 09:32 Dose: 10 ml Sodium Chloride (Flush - Normal Saline) 10 ml IVF PRN PRN PRN Reason: Saline Flush
[2017-06-11] MEDS ORDERED: Pantoprazole 40 MG VIAL IVP SCH (16:10)
--- NOTE | 2017-06-11 16:31 | PRG ---
DATE OF SERVICE: 06/11/2017 SUBJECTIVE: Ms. Garcia has no acute complaints. No abdominal pain. She is tolerating a solid diet well. She passed a very dark soft bowel movement today. OBJECTIVE: VITAL SIGNS: Temperature 98.1, pulse 68, blood pressure 83/50. GENERAL: She is in no acute distress. She is awake and alert. She is pale. LUNGS: Clear to auscultation bilaterally. HEART: Regular rate and rhythm. ABDOMEN: Soft, nontender, nondistended. Bowel sounds are present. RECTAL EXAM: Reveals dark brown to black stool in the rectal vault. EXTREMITIES: No lower extremity edema. LABORATORY DATA: Hemoglobin is 7.0 today down from 9.4. Creatinine 0.45. Iron 45, TIBC 241, corby tin 171, reticulocyte count 6.8. IMPRESSION: Anemia secondary to acute blood loss. She is now passing some black stool. Her hemogl obin has dropped back down to 7. She came in with hemoglobin of 6.9, her hemoglobin improved to 9.4 after 2 units of blood, and now she has decreased again today. She could have an ulcer at the nithin rojejunostomy anastomosis. We will change her pantoprazole from oral to IV drip and plan EGD. She did have a solid lunch and will schedule this for tomorrow. RECOMMENDATIONS: 1. Pantoprazole drip. 2. Transfuse. She has received 1 unit today so far and we will write for an additional unit to be transfused. 3. Esophagogastroduodenoscopy tomorrow.
[2017-06-11] MEDS: Citalopram 20 MG TAB PO SCH (20:32)
[2017-06-11] MEDS: Pantoprazole 80 MG in Sodium Chloride 0.9% 100 ML IVP SCH (22:45)
[2017-06-12 05:09] LABS: Hematocrit 23.3 % (36.0-47.0)
[2017-06-12] MEDS: Levothyroxine Sodium 25 MCG TAB PO SCH (06:36)
[2017-06-12] MEDS: Metoprolol Tartrate 25 MG TAB PO SCH ×3 (08:25→21:15)
[2017-06-12] MEDS: Digoxin 0.125 MG TAB PO SCH (08:25)
[2017-06-12] MEDS: Cyanocobalamin (Vitamin B-12) 1,000 MCG TAB PO SCH (08:26)
[2017-06-12] MEDS: Dexamethasone 4 MG TAB PO SCH ×3 (08:26→17:00)
[2017-06-12] MEDS: Docusate 100 MG CAP PO SCH (08:26)
[2017-06-12] MEDS: Multivit, Therapeutic 1 TAB PO SCH (08:26)
[2017-06-12] MEDS ORDERED: ePHEDrine/0.9% NaCl/PF SYRINGE 50 mg/10 ml ONE (12:57)
[2017-06-12] MEDS ORDERED: PHENYLEPHRINE-NS 100 MCG/ML 10 ML SYRINGE ONE ×2 (12:57→13:46)
[2017-06-12] MEDS ORDERED: Propofol 200 MG/20 ML VIAL ONE (13:46)
[2017-06-12] MEDS ORDERED: Promethazine HCl 25 MG/ML VIAL SLOW IVP PRN (14:25)
[2017-06-12] MEDS ORDERED: Ondansetron HCl/PF 4 MG/2 ML Vial IVP PRN (14:25)
[2017-06-12] MEDS ORDERED: Morphine Sulfate 2 MG/ML SYRINGE SLOW IVP PRN (14:25)
[2017-06-12] MEDS: Pantoprazole 80 MG in Sodium Chloride 0.9% 100 ML IVP SCH (15:22)
[2017-06-12] MEDS: Anastrozole 1 MG TAB PO SCH (15:23)
[2017-06-12 15:45] LABS: Hematocrit 22.2 % (36.0-47.0)
--- NOTE | 2017-06-12 15:45 | PDOC.PN ---
- Subjective Encounter Start Date: 06/12/17 Encounter Start Time: 15:43 Patient seen and examined. s/p EGD - Objective Resuscitation Status: Resuscitation Status CHEM:Chem Code Only MAR Reviewed: Yes Vital Signs & Weight: Vital Signs (12 hours) Temp Pulse Resp BP BP Pulse Ox 06/12/17 08:25 86 06/12/17 08:00 97.7 F 86 16 109/66 99 06/12/17 04:00 71 16 116/67 99 Weight Admit Weight 155 lb Weight 155 lb I&O: 06/11/17 06/12/17 06/13/17 06:59 06:59 06:59 Intake Total 960 1100 Balance 960 1100 Result Diagrams: 06/12/17 15:30 06/11/17 03:55 Phys Exam - Physical Examination Constitutional: NAD Respiratory: no wheezing, no rales, no rhonchi Cardiovascular: RRR, no rub Gastrointestinal: soft, non-tender, positive bowel sounds Musculoskeletal: no edema Dx/Plan (1) GIB (gastrointestinal bleeding) Code(s): K92.2 - GASTROINTESTINAL HEMORRHAGE, UNSPECIFIED Status: Acute (2) Symptomatic anemia Code(s): D64.9 - ANEMIA, UNSPECIFIED Status: Acute Comment: suspected to be due to GI bleed - FOBT + (3) Chronic a-fib Code(s): I48.2 - CHRONIC ATRIAL FIBRILLATION Status: Chronic Comment: no anticoag due to nose bleeds, Rate better controlled. (4) Diastolic heart failure Code(s): I50.30 - UNSPECIFIED DIASTOLIC (CONGESTIVE) HEART FAILURE Status: Chronic Qualifiers: Heart failure chronicity: chronic Qualified Code(s): I50.32 - Chronic diastolic (congestive) heart failure (5) Metastatic breast cancer Code(s): C50.919 - MALIGNANT NEOPLASM OF UNSP SITE OF UNSPECIFIED FEMALE BREAST Status: Chronic (6) Anemia due to blood loss, acute Code(s): D62 - ACUTE POSTHEMORRHAGIC ANEMIA Status: Acute (7) Physical deconditioning Code(s): R53.81 - OTHER MALAISE Status: Chronic (8) Other issues per previous notes - Plan cont current plan of care, DVT proph w/SCDs * Monitor HH * Cont to monitor * s/p EGD - GI following * AM labs * Cont other meds as below Review of Systems - Review of Systems Other: Cannot obtain due to current mentation. - Medications/Allergies Allergies/Adverse Reactions: Allergies Allergy/AdvReac Type Severity Reaction Status Date / Time adhesive Allergy Rash Verified 05/10/17 20:01 amoxicillin trihydrate Allergy Rash Verified 05/10/17 20:01 [From Augmentin] ciprofloxacin [From Cipro] Allergy Rash Verified 05/10/17 20:01 ciprofloxacin HCl Allergy Rash Verified 05/10/17 20:01 [From Cipro] potassium clavulanate Allergy Rash Verified 05/10/17 20:01 [From Augmentin] sulfamethoxazole Allergy Rash Verified 05/10/17 20:01 [From Bactrim] trimethoprim [From Bactrim] Allergy Rash Verified 05/10/17 20:01 Medications: Current Medications Acetaminophen (Tylenol) 650 mg PO Q4H PRN PRN Reason: Headache/Fever or Pain Last Admin: 06/11/17 11:57 Dose: 650 mg Hydrocodone Bitart/Acetaminophen ([place]ox[place] 5/325) 1 tab PO Q4H PRN PRN Reason: Moderate Pain (4-6) Hydrocodone Bitart/Acetaminophen ([place]ox[place] 5/325) 2 tab PO Q4H PRN PRN Reason: Severe Pain (7-10) Last Admin: 06/10/17 03:03 Dose: 2 tab Anastrozole (Arimidex) 1 mg PO DAILY [facility] Last Admin: 06/12/17 15:23 Dose: Not Given Citalopram Hydrobromide (Celexa) 20 mg PO HS [facility] Last Admin: 06/11/17 20:32 Dose: 20 mg Cyanocobalamin (Vitamin B-12) 1,000 mcg PO DAILY [facility] Last Admin: 06/12/17 08:26 Dose: Not Given Dexamethasone (Decadron) 2 mg PO TID-[facility] Last Admin: 06/12/17 12:30 Dose: Not Given Digoxin (Lanoxin) 0.125 mg PO QAM [facility] Last Admin: 06/12/17 08:25 Dose: 0.125 mg Diltiazem HCl (Cardizem) 30 mg PO ACHS [facility] Last Admin: 06/12/17 12:00 Dose: Not Given Diphenhydramine HCl (Benadryl) 25 mg PO Q8H PRN PRN Reason: SWELLING Hydralazine HCl (Apresoline) 10 mg SLOW IVP Q4H PRN PRN Reason: Systolic BP > 180 Pantoprazole Sodium 80 mg/ (Sodium Chloride) 100 mls @ 10 mls/hr IVP INF [facility] Last Admin: 06/12/17 15:22 Dose: 100 mls Lactulose (Lactulose) 20 gm PO DAILYPRN PRN PRN Reason: Constipation Levothyroxine Sodium (Synthroid) 25 mcg PO 0600 [facility] Last Admin: 06/12/17 06:36 Dose: 25 mcg Magnesium Hydroxide (Milk Of Magnesium) 30 ml PO DAILYPRN PRN PRN Reason: Constipation Metoprolol Tartrate (Lopressor) 12.5 mg PO TID [facility] Last Admin: 06/12/17 08:25 Dose: 12.5 mg Morphine Sulfate (Pacu-Morphine Sulfate) 2 mg SLOW IVP Q10MIN PRN PRN Reason: Moderate to Severe Pain (6-10) Stop: 06/12/17 17:25 Morphine Sulfate (Pacu-Morphine Sulfate) 4 mg SLOW IVP ONE PRN PRN Reason: Moderate to Severe Pain (6-10) Stop: 06/12/17 17:25 Multivitamins (Theragran) 1 tab PO DAILY [facility] Last Admin: 06/12/17 08:26 Dose: Not Given Ondansetron HCl (Zofran Odt) 4 mg PO Q6H PRN PRN Reason: Nausea/Vomiting Ondansetron HCl (Zofran) 4 mg IVP Q6H PRN PRN Reason: Nausea/Vomiting Ondansetron HCl (Pacu-Zofran) 4 mg IVP ONE PRN PRN Reason: Nausea/Vomiting Stop: 06/12/17 17:25 Promethazine HCl (Pacu-Phenergan) 6.25 mg SLOW IVP ONE PRN PRN Reason: Nausea/Vomiting Stop: 06/12/17 17:25 Sodium Chloride (Flush - Normal Saline) 10 ml IVF Q12HR [facility] Last Admin: 06/12/17 08:27 Dose: 10 ml Sodium Chloride (Flush - Normal Saline) 10 ml IVF PRN PRN PRN Reason: Saline Flush
[2017-06-12] MEDS: Citalopram 20 MG TAB PO SCH (21:17)
[2017-06-12 22:42] LABS: Hematocrit 21.1 % (36.0-47.0)
--- NOTE | 2017-06-12 23:37 | OP ---
DATE OF PROCEDURE: 06/12/2017 PREOPERATIVE DIAGNOSES: 1. Upper gastrointestinal bleed. 2. Metastatic breast cancer. POSTOPERATIVE DIAGNOSES: 1. Normal esophagus. 2. Submucosal mass just below the gastroesophageal junction in retroflexed views. 3. Anastomosis mid-body of the stomach consistent with history of gastrojejunostomy. 4. Ulcer white based at the proximal edge of the anastomosis extending to the efferent limb. 5. Visible vessel at the anastomosis ulcer with slight oozing. This was injected with 1:10,000 epi nephrine and cauterized with 10-Ugandan heater probe. ANESTHESIA: TIVA. PROCEDURE IN DETAIL: After the patient was informed of the risks, benefits, and possible complicati ons of endoscopy including perforation, bleeding, reactions to medication and aspiration, informed c onsent was obtained. The patient was brought to the endoscopy suite where she was sedated in a grad ual fashion. Once she was comfortable, a bite block was placed in the incisural orifice. The endos cope was advanced into the esophagus and the stomach. 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 There was no active bleeding in this area . The proximal stomach was normal except for about a 4 cm submucosal mass which was firm on probing . No biopsies were obtained. Along the greater curve of the stomach, there was a gastrojejunostomy , there was what appeared to be some coffeeground-like material, this was irrigated away and some fr esh red blood was noted just inside the anastomosis on the small bowel side. The afferent limb was traversed without any abnormality. The efferent limb was traversed without any abnormality except f or some coffeeground-like liquid residue. Approximately right on the duodenal side of the gastrojej unostomy, there was a serpiginous 1 x 3 cm ulcer white base noted just at the proximal edge of this with the gastric anastomosis. There was a visible vessel with adherent clot and slight oozing. Thi s was injected with 1:10,000 epinephrine and cauterized with 7-[place]gandan heater probe. This was felt t o be a very big vessel though and the scope was then changed out for a therapeutic scope and a 10-Fr ench heater probe was used to ablate the vessel which was achieved was obtained. The scope wa s removed. The patient tolerated the procedure well without complications. RECOMMENDATIONS: 1. Serial H\T\Hs. 2. IV Protonix q. 12 hours. 3. If no further bleeding, consider advancing diet with liquids tomorrow.
[2017-06-13] MEDS: Pantoprazole 80 MG in Sodium Chloride 0.9% 100 ML IVP SCH ×2 (01:23→10:18)
[2017-06-13] MEDS: Levothyroxine Sodium 25 MCG TAB PO SCH (06:07)
[2017-06-13 06:14] LABS: Hematocrit 21.7 % (36.0-47.0)
[2017-06-13 06:41] LABS: Anion Gap 9 mmol/L (10-20); BUN (Urea Nitrogen) 39 mg/dL (9.8-20.1); Calc. Creatinine Clearance 98 mL/min (70-130); Calcium 7.3 mg/dL (7.8-10.44); Carbon Dioxide 21 mmol/L (23-31); Chloride 104 mmol/L (98-107); Estimated GFR-MDRD Greater than 90
[2017-06-13] MEDS: Metoprolol Tartrate 25 MG TAB PO SCH ×3 (10:18→20:59)
[2017-06-13] MEDS: Multivit, Therapeutic 1 TAB PO SCH (10:18)
[2017-06-13] MEDS: Digoxin 0.125 MG TAB PO SCH (10:18)
[2017-06-13] MEDS: Anastrozole 1 MG TAB PO SCH (10:18)
[2017-06-13] MEDS: Dexamethasone 4 MG TAB PO SCH ×3 (10:19→17:52)
[2017-06-13] MEDS: Cyanocobalamin (Vitamin B-12) 1,000 MCG TAB PO SCH (10:19)
[2017-06-13 16:12] LABS: Hematocrit 21.4 % (36.0-47.0)
--- NOTE | 2017-06-13 19:08 | PRG ---
DATE OF SERVICE: 06/13/2017 SUBJECTIVE: The patient is seen and examined at the bedside, today is 06/13/2017. She is quite josefina wsy. She slept all night and I checked on her twice and each time, she has been sleeping. She is a rousable. She ate clear liquids without any problems, but she seems to be very weak. OBJECTIVE: VITAL SIGNS: Blood pressure is 130/87, pulse is 79, respiratory rate is 18, temperature is 96.3, an d O2 saturation is 98% on room air. She looks pale and tired. She is very drowsy. HEENT: Her head is atraumatic, normocephalic. Sclerae are anicteric. Conjunctivae pale. Oral muc rhett is palish. LUNGS: Clear. HEART: S1, S2 irregular. No S3. No S4. ABDOMEN: Soft, nontender. Bowel sounds are present. EXTREMITIES: Right upper extremity presents approximately 1+ to 1-1/2+ peripheral edema. NEUROLOGIC: She is able to open her eyes. She tries to follow my commands, but she falls asleep ve ry quickly. LABORATORY DATA: Showed hemoglobin of 7.3, hematocrit 21.7. Sodium of 130, potassium 4.1, chloride 104, CO2 21, BUN 13, creatinine 0.50, glucose 69. MICROBIOLOGY: Blood cultures negative in 48 hours and stool occult blood was positive. IMPRESSION: 1. Anemia secondary to acute blood loss with fecal occult blood test positive, status post EGD with findings of ulcer with white base at the proximal edge of the anastomosis extending to the efferent limb and anastomosis in mid body of the stomach consistent with history of gastrojejunostomy. 2. Symptomatic anemia. Hemoglobin is down to 7.3, but it is stable. We will continue monitoring. 3. Chronic atrial fibrillation, rate is controlled. No anticoagulation due to bleeding. 4. Diastolic heart failure, chronic, congestive. 5. Metastatic breast cancer with malignant neoplasm with a submucosal mass just below the gastroes ophageal junction in the retroflexed views, which could be a metastatic lesion. 6. Physical deconditioning which is chronic. The patient did not participate in physical therapy t ralph. 7. Left upper extremity swelling. PLAN: Monitor H\T\H. Continue PT. Yesterday, she was started on tamoxifen by Dr. Willams. I thin k it is very crucial for her to get her physical therapy and improve her profound deconditioning. I stopped her hydrocodone which is probably the cause of her drowsiness and this should improve her m ental function.
--- NOTE | 2017-06-13 19:08 | PRG ---
DATE OF SERVICE: 06/13/2017 SUBJECTIVE: Ms. Dotson has had no further bleeding. She still feels very weak. She has not been ou t of bed yet today. OBJECTIVE: VITAL SIGNS: Pulse 68, temperature is 98, blood pressure 117/72. ABDOMEN: Nontender. LABORATORY DATA: Hemoglobin 7.1 this afternoon, 7.3 this morning, 7.2 last night. ASSESSMENT: 1. Upper gastrointestinal bleeding from anastomotic ulcer, visible vessel, treated endoscopically y . She has done well with no further signs of bleeding. 2. Metastatic breast cancer with duodenal obstruction necessitating the gastrojejunostomy in the rst place as a palliative procedure. 3. Ongoing chemotherapy and radiation. RECOMMENDATIONS: 1. Change IV Protonix drip to IV q. 12 hours. 2. Advance diet as tolerated. 3. Transfuse 1 unit of blood for profound fatigue and hemoglobin of 7.1.
[2017-06-13] MEDS: Pantoprazole 40 MG VIAL IVP SCH (20:59)
[2017-06-13] MEDS: Citalopram 20 MG TAB PO SCH (20:59)
[2017-06-13] MEDS: Acetaminophen 325 MG TAB PO PRN (22:44)
[2017-06-14] MEDS: Levothyroxine Sodium 25 MCG TAB PO SCH (06:44)
[2017-06-14 06:50] LABS: Hematocrit 23.6 % (36.0-47.0)
[2017-06-14 07:10] LABS: Anion Gap 8 mmol/L (10-20); BUN (Urea Nitrogen) 21 mg/dL (9.8-20.1); Calc. Creatinine Clearance 106 mL/min (70-130); Calcium 7.2 mg/dL (7.8-10.44); Carbon Dioxide 24 mmol/L (23-31); Chloride 102 mmol/L (98-107); Estimated GFR-MDRD Greater than 90
[2017-06-14] MEDS: Digoxin 0.125 MG TAB PO SCH (09:19)
[2017-06-14] MEDS: Anastrozole 1 MG TAB PO SCH (09:19)
[2017-06-14] MEDS: Metoprolol Tartrate 25 MG TAB PO SCH ×3 (09:19→21:44)
[2017-06-14] MEDS: Cyanocobalamin (Vitamin B-12) 1,000 MCG TAB PO SCH (09:19)
[2017-06-14] MEDS: Multivit, Therapeutic 1 TAB PO SCH (09:19)
[2017-06-14] MEDS: Pantoprazole 40 MG VIAL IVP SCH ×2 (09:19→21:43)
[2017-06-14] MEDS: Dexamethasone 4 MG TAB PO SCH ×3 (09:20→17:28)
--- NOTE | 2017-06-14 10:07 | PRG ---
DATE OF SERVICE: 06/14/2017 SUBJECTIVE: Ms. Garcia is eating a soft diet, doing well with that. She denies any pain, nausea or vomiting. Nurses and family notes she had one bowel movement last night around 07:00, which was pantera k black. PHYSICAL EXAMINATION: GENERAL: Patient is sitting up in chair, eating, she has been out of bed today. VITAL SIGNS: Temperature is 98, blood pressure is 111/70, pulse is 85. HEENT: Alopecia. ABDOMEN: Nontender. NEUROLOGIC: She has no distress. She is alert, and oriented to person, place and time. LABORATORY DATA: Hemoglobin is 8.2. ASSESSMENT: Gastrointestinal bleed from anastomotic ulcer with visible vessel treated endoscopicall y, presently with no signs of active bleeding. RECOMMENDATIONS: 1. Advance diet. 2. Ambulate. 3. Continue IV PPI q.12 hours. If no bleeding, change to p.o. tomorrow. Anticipate discharge in 24-48 hours if there is no further bleeding.
--- NOTE | 2017-06-14 13:42 | PRG ---
DATE OF SERVICE: 06/14/2017 SUBJECTIVE: The patient is seen and examined at bedside. She is awake during my visit and that is the first time, sitting up and she just finished her lunch. She ate a good lunch. She participated in physical therapy today, so there is significant progress in her general condition. She feels le ss weak. She had 1 unit of blood transfused yesterday. OBJECTIVE: VITAL SIGNS: Blood pressure is 105/67, pulse is 76, respiratory rate is 20, O2 saturation is 98% on room air and temperature is 98.0. Maximal temperature is 98.5. HEENT: Head is traumatic, normocephalic. Conjunctivae pale. Oral mucosa is moist. SKIN: Pale. LUNGS: Left base diminished with few crackles. HEART: S1, S2 normal, no S3, no S4. ABDOMEN: Soft, nontender, bowel sounds are present, no organomegaly. EXTREMITIES: 1+ peripheral edema similar bilaterally. NEUROLOGIC: She is alert and oriented x4. There is no any sensory or motor deficit present. Crani al nerves are intact. LABORATORY DATA: Showed hemoglobin of 8.2, hematocrit 23.6. Sodium of 130, potassium 4.0, chloride 102, CO2 24, BUN is 21, creatinine 0.46. Estimated GFR is greater than 90, glucose 119, calcium 7. 2. IMPRESSION: 1. Anemia secondary to acute blood loss with fecal occult blood test positive and status post EGD, which showed ulcer with a white base at the proximal edge of the anastomosis extending to the effere nt limb and anastomosis in the mid body of the stomach consistent with history of gastrojejunostomy. 2. Symptomatic anemia, status post transfusion of additional a unit of packed red blood cells, hemo globin is up to 8.3 today. 3. Chronic atrial fibrillation, rate is controlled, no anticoagulation due to bleeding. 4. Diastolic heart failure, chronic, congestive. 5. Metastatic breast cancer with malignant neoplasm with a submucosal mass just below the gastroeso phageal junction in the retroflexed views, which could be a metastatic lesion. 6. Physical deconditioning, somewhat better today after transfusion. She started eating better and participating in physical therapy and she is not sleeping like she was before. Her narcotics were discontinued. 7. Left upper extremity swelling, which is most likely from IV. PLAN: Continue current regimen since she is doing significantly better. I am going to decrease her dexamethasone dose to 2 mg twice a day from 3 times a day, also I ask the patient's family to bring incentive spirometry device from home since she will use it today because of her left lower lobe c hange on my physical examination. I worried that this is atelectatic and might get into infectious process.
[2017-06-14] MEDS: Citalopram 20 MG TAB PO SCH (21:43)
[2017-06-15 04:38] LABS: Hematocrit 23.2 % (36.0-47.0)
[2017-06-15] MEDS: Levothyroxine Sodium 25 MCG TAB PO SCH (06:37)
[2017-06-15] MEDS: Digoxin 0.125 MG TAB PO SCH (08:18)
[2017-06-15] MEDS: Metoprolol Tartrate 25 MG TAB PO SCH ×3 (08:19→20:39)
[2017-06-15] MEDS: Anastrozole 1 MG TAB PO SCH (08:19)
[2017-06-15] MEDS: Multivit, Therapeutic 1 TAB PO SCH (08:19)
[2017-06-15] MEDS: Dexamethasone 4 MG TAB PO SCH (08:20)
[2017-06-15] MEDS: Cyanocobalamin (Vitamin B-12) 1,000 MCG TAB PO SCH (08:20)
[2017-06-15] MEDS: Pantoprazole 40 MG VIAL IVP SCH ×2 (08:21→20:39)
--- NOTE | 2017-06-15 14:29 | PRG ---
DATE OF SERVICE: 06/15/2017 SUBJECTIVE: The patient is seen and examined at the bedside. She has a significantly better appeti te now, but she is extremely weak and deconditioned and very quickly [facility] OBJECTIVE: VITAL SIGNS: Blood pressure is 101/53, temperature is 97.8, pulse is 83, respiratory rate is 16, pu lse oximetry is 99% on room air. SKIN: Pale. HEENT: Sclerae nonicteric. Conjunctivae palish. Oral mucosa is moist, but pale. NECK: Supple, no lymphadenopathy. Thyroid is not palpable. LUNGS: Left base has crackles and breath sounds somewhat muffled in the left lower lobe. ABDOMEN: Soft and nontender. Bowel sounds are present, no organomegaly. EXTREMITIES: A 1+ peripheral edema, similar bilaterally, nonpitting. NEUROLOGICAL EXAMINATION: She is alert and oriented x4. There are not any sensory or motor deficit s present. Cranial nerves are intact. LABORATORY DATA: Labs showed hemoglobin of 7.9, platelet count is 64,000. IMPRESSION: 1. Anemia, secondary to acute blood loss with fecal occult blood test positive and status post esop hagogastroduodenoscopy, which showed ulcer with a white base at the proximal edge of the anastomosis , extending to the efferent limb and anastomosis in the mid body of the stomach, consistent with his tory of gastrojejunostomy. The patient had brown bowel movements last night. There was no blood. There were no black stools. 2. Chronic atrial fibrillation, rate is controlled, no anticoagulation due to bleeding. 3. Profound deconditioning. Patient's appetite improved significantly in the last couple of days. So, hopefully, this is going to get better along with participating in physical therapy. She will need to go to the rehabilitation center for further physical therapy. 4. Metastatic breast cancer with malignant neoplasm with a submucosal mass just below the gastroeso phageal junction in the retroflexed views, which could be a metastatic lesion. Dr. Willams, oncolog ist, was consulted. He started her on an Arimidex 1 mg daily. 5. Left lower lobe infiltrate on the x-ray before and some crackles at the left lower lobe, althoug h the patient does not cough and does not have any symptoms which would be suggestive of significant problem in her left lower lobe. We will get a chest x-ray on her. 6. Diastolic heart failure, which is chronic, congestive, and is stable. PLAN: I am planning to give her 1 unit of packed red blood cells since she is very deconditioned an d she is not even able to participate fully in physical therapy, because she gets tired very quickly and plan also to have community case manager to arrange transfer to [facility]. Also, we will obt ain the chest x-ray on her to see the left lower lobe area and her dexamethasone will be decreased t o 1 dose of 2 mg daily and then it will be stopped.
[2017-06-15] MEDS: Citalopram 20 MG TAB PO SCH (20:39)
[2017-06-16] MEDS: Levothyroxine Sodium 25 MCG TAB PO SCH (05:18)
[2017-06-16 05:55] LABS: Hematocrit 28.8 % (36.0-47.0)
[2017-06-16 06:02] LABS: Anion Gap 8 mmol/L (10-20); BUN (Urea Nitrogen) 15 mg/dL (9.8-20.1); Calc. Creatinine Clearance 92 mL/min (70-130); Calcium 7.4 mg/dL (7.8-10.44); Carbon Dioxide 27 mmol/L (23-31); Chloride 101 mmol/L (98-107); Estimated GFR-MDRD Greater than 90; Magnesium 1.7 mg/dL (1.6-2.6); Phosphorus 2.6 mg/dL (2.3-4.7)
--- NOTE | 2017-06-16 07:43 | RAD ---
UPRIGHT PORTABLE CHEST 1 VIEW: Date: 06/16/17 HISTORY: 82-year-old female, follow-up left lower lobe infiltrate. FINDINGS: Right central line injection port. Heart size is minimally enlarged. Minimal increased linear and in terstitial markings with some blunting of the costophrenic angles bilaterally. Overall appearance is stable. No confluent pneumonia. IMPRESSION: Blunting of both costophrenic angles. Stable appearing cardiomegaly. No evidence for confluent pneum onia. POS: [facility]
[2017-06-16] MEDS: Digoxin 0.125 MG TAB PO SCH (08:41)
[2017-06-16] MEDS: Multivit, Therapeutic 1 TAB PO SCH (08:43)
[2017-06-16] MEDS: Metoprolol Tartrate 25 MG TAB PO SCH ×3 (08:43→22:29)
[2017-06-16] MEDS: Anastrozole 1 MG TAB PO SCH (08:44)
[2017-06-16] MEDS: Dexamethasone 4 MG TAB PO SCH (08:44)
[2017-06-16] MEDS: Pantoprazole 40 MG VIAL IVP SCH ×2 (08:45→20:41)
[2017-06-16] MEDS: Cyanocobalamin (Vitamin B-12) 1,000 MCG TAB PO SCH (08:45)
[2017-06-16] MEDS ORDERED: Docusate 100 MG CAP PO SCH (11:00)
--- NOTE | 2017-06-16 12:14 | PRG ---
DATE OF SERVICE: 06/16/2017 Ms. Dotson has had no further bleeding. She did receive a unit of blood yesterday. She has decondit ioning and severe anemia, hemoglobin was 7.9 yesterday, it is 9.9 today. Other than feeling weak th e patient is without complaints. She has had no further bleeding and she is eating. PHYSICAL EXAMINATION: VITAL SIGNS: Temperature is 97, pulse 79, blood pressure 127/81. ABDOMEN: Nontender. ASSESSMENT: Gastrointestinal bleed secondary to anastomotic ulcer controlled endoscopically. She h as been on IV PPI now for 4 days. We will switch to p.o.. At this time we will sign off. If I can be of any further assistance in her care please do not hesi [place] to call me.
[2017-06-16] MEDS ORDERED: Pantoprazole 40 MG VIAL IVP SCH (12:30)
--- NOTE | 2017-06-16 15:44 | PDOC.PN ---
- Subjective Encounter Start Date: 06/16/17 Encounter Start Time: 15:44 Patient seen and examined. Dark melanotic stool - heme occult +. No overnight events - Objective Resuscitation Status: Resuscitation Status CHEM:Chem Code Only MAR Reviewed: Yes Vital Signs & Weight: Vital Signs (12 hours) Temp Pulse Resp BP BP Pulse Ox 06/16/17 08:41 79 06/16/17 08:00 97.7 F 79 16 127/81 97 06/16/17 04:00 97.7 F 84 18 117/69 96 Weight Admit Weight 155 lb Weight 155 lb I&O: 06/15/17 06/16/17 06/17/17 06:59 06:59 06:59 Intake Total 1000 410 Balance 1000 410 Result Diagrams: 06/16/17 17:08 06/16/17 05:20 Phys Exam - Physical Examination Constitutional: NAD Respiratory: no wheezing, no rhonchi Cardiovascular: no rub, irregular Gastrointestinal: soft, non-tender, no distention, positive bowel sounds Neurological: non-focal, moves all 4 limbs Dx/Plan (1) GIB (gastrointestinal bleeding) Code(s): K92.2 - GASTROINTESTINAL HEMORRHAGE, UNSPECIFIED Status: Acute Comment: s/p EGD (2) Symptomatic anemia Code(s): D64.9 - ANEMIA, UNSPECIFIED Status: Acute (3) Chronic a-fib Code(s): I48.2 - CHRONIC ATRIAL FIBRILLATION Status: Chronic (4) Diastolic heart failure Code(s): I50.30 - UNSPECIFIED DIASTOLIC (CONGESTIVE) HEART FAILURE Status: Chronic Qualifiers: Heart failure chronicity: chronic Qualified Code(s): I50.32 - Chronic diastolic (congestive) heart failure (5) Metastatic breast cancer Code(s): C50.919 - MALIGNANT NEOPLASM OF UNSP SITE OF UNSPECIFIED FEMALE BREAST Status: Chronic (6) Anemia due to blood loss, acute Code(s): D62 - ACUTE POSTHEMORRHAGIC ANEMIA Status: Acute (7) Physical deconditioning Code(s): R53.81 - OTHER MALAISE Status: Chronic (8) Hypokalemia Code(s): E87.6 - HYPOKALEMIA Status: Resolved (9) Other issues per previous notes - Plan cont current plan of care, plan discussed w/ family, PT/OT, health and social care teacher, DVT proph w/SCDs * Monitor HH * GI following * Replace Potassium * AM labs * Cont other meds as below Review of Systems - Review of Systems Respiratory: negative: Cough, Dry, Shortness of Breath, Hemoptysis, SOB with Excertion, Pleuritic Pain, Sputum, Wheezing Cardiovascular: negative: Chest Pain, Palpitations, Orthopnea, Paroxysmal Noc. Dyspnea, Edema, Light Headedness, Other - Medications/Allergies Allergies/Adverse Reactions: Allergies Allergy/AdvReac Type Severity Reaction Status Date / Time adhesive Allergy Rash Verified 05/10/17 20:01 amoxicillin trihydrate Allergy Rash Verified 05/10/17 20:01 [From Augmentin] ciprofloxacin [From Cipro] Allergy Rash Verified 05/10/17 20:01 ciprofloxacin HCl Allergy Rash Verified 05/10/17 20:01 [From Cipro] potassium clavulanate Allergy Rash Verified 05/10/17 20:01 [From Augmentin] sulfamethoxazole Allergy Rash Verified 05/10/17 20:01 [From Bactrim] trimethoprim [From Bactrim] Allergy Rash Verified 05/10/17 20:01 Medications: Current Medications Acetaminophen (Tylenol) 650 mg PO Q4H PRN PRN Reason: Headache/Fever or Pain Last Admin: 06/13/17 22:44 Dose: 650 mg Anastrozole (Arimidex) 1 mg PO DAILY [facility] Last Admin: 06/16/17 08:44 Dose: 1 mg Citalopram Hydrobromide (Celexa) 20 mg PO HS [facility] Last Admin: 06/15/17 20:39 Dose: 20 mg Cyanocobalamin (Vitamin B-12) 1,000 mcg PO DAILY [facility] Last Admin: 06/16/17 08:45 Dose: 1,000 mcg Dexamethasone (Decadron) 2 mg PO QAM-WM [facility] Last Admin: 06/16/17 08:44 Dose: 2 mg Digoxin (Lanoxin) 0.125 mg PO QAM [facility] Last Admin: 06/16/17 08:41 Dose: 0.125 mg Diltiazem HCl (Cardizem) 30 mg PO ACHS [facility] Last Admin: 06/16/17 11:32 Dose: 30 mg Docusate Sodium (Colace) 100 mg PO BID [facility] Hydralazine HCl (Apresoline) 10 mg SLOW IVP Q4H PRN PRN Reason: Systolic BP > 180 Lactulose (Lactulose) 20 gm PO DAILYPRN PRN PRN Reason: Constipation Levothyroxine Sodium (Synthroid) 25 mcg PO 0600 [facility] Last Admin: 06/16/17 05:18 Dose: 25 mcg Magnesium Hydroxide (Milk Of Magnesium) 30 ml PO DAILYPRN PRN PRN Reason: Constipation Metoprolol Tartrate (Lopressor) 12.5 mg PO TID [facility] Last Admin: 06/16/17 08:43 Dose: 12.5 mg Multivitamins (Theragran) 1 tab PO DAILY [facility] Last Admin: 06/16/17 08:43 Dose: 1 tab Ondansetron HCl (Zofran Odt) 4 mg PO Q6H PRN PRN Reason: Nausea/Vomiting Ondansetron HCl (Zofran) 4 mg IVP Q6H PRN PRN Reason: Nausea/Vomiting Pantoprazole Sodium (Protonix) 40 mg IVP Q12HR [facility] Potassium Chloride (Klor-Con) 20 meq PO BID[facility] [place] Last Admin: 06/16/17 08:45 Dose: 20 meq Sodium Chloride (Flush - Normal Saline) 10 ml IVF Q12HR [facility] Last Admin: 06/16/17 08:45 Dose: 10 ml Sodium Chloride (Flush - Normal Saline) 10 ml IVF PRN PRN PRN Reason: Saline Flush Last Admin: 06/16/17 13:25 Dose: 10 ml Sodium Chloride (Flush - Normal Saline) 10 ml IVF PRN PRN PRN Reason: Saline Flush
[2017-06-16 17:32] LABS: Hematocrit 29.8 % (36.0-47.0)
--- NOTE | 2017-06-16 17:42 | PRG ---
DATE OF SERVICE: 06/16/2017 SUBJECTIVE: Nursing called and reported that Ms. Dotson had a smeared black stool. She has had no f urther overt bleeding. She has no other acute complaints currently. Her hemoglobin was rechecked t his afternoon at 12:18 and remains stable at 10.7. Her abdomen is soft, nontender and nondistended. IMPRESSION AND PLAN: Marginal ulcer at the gastrojejunostomy anastomosis. This had a visible vesse l, which was cauterized by Dr. Norris on 06/12/2017. Her hemoglobin has remained stable. She did h ave smeared black stool today, which is a change from the brown stool that she was having yesterday. We will recheck her hemoglobin in the morning and monitor for further evidence of overt bleeding. No need for urgent repeat endoscopy currently. She will continue on IV pantoprazole. If her hemog lobin was stable without evidence of further overt bleeding tomorrow, then advance her diet and swit ch to oral proton pump inhibitor.
[2017-06-16] MEDS: Citalopram 20 MG TAB PO SCH (20:40)
[2017-06-16] MEDS: Docusate 100 MG CAP PO SCH (20:40)
[2017-06-16] MEDS ORDERED: Calcium Carbonate 500 MG ChewTAB PO PRN (22:14)
[2017-06-17 05:29] LABS: Anion Gap 10 mmol/L (10-20); BUN (Urea Nitrogen) 11 mg/dL (9.8-20.1); Calc. Creatinine Clearance 102 mL/min (70-130); Calcium 7.4 mg/dL (7.8-10.44); Carbon Dioxide 26 mmol/L (23-31); Chloride 100 mmol/L (98-107); Estimated GFR-MDRD Greater than 90
[2017-06-17] MEDS: Levothyroxine Sodium 25 MCG TAB PO SCH (06:36)
[2017-06-17] MEDS: Pantoprazole 40 MG VIAL IVP SCH ×2 (08:00→21:01)
[2017-06-17] MEDS: Docusate 100 MG CAP PO SCH ×2 (08:01→21:00)
[2017-06-17] MEDS: Metoprolol Tartrate 25 MG TAB PO SCH ×2 (08:02→21:00)
[2017-06-17] MEDS: Cyanocobalamin (Vitamin B-12) 1,000 MCG TAB PO SCH (08:02)
[2017-06-17] MEDS: Dexamethasone 4 MG TAB PO SCH (08:02)
[2017-06-17] MEDS: Digoxin 0.125 MG TAB PO SCH (08:04)
[2017-06-17] MEDS: Multivit, Therapeutic 1 TAB PO SCH (08:05)
--- NOTE | 2017-06-17 13:45 | PDOC.PN ---
- Subjective Encounter Start Date: 06/17/17 Encounter Start Time: 13:44 Patient seen and examined. No new GI bleeding. Melena clearing. No overnight events - Objective Resuscitation Status: Resuscitation Status CHEM:Chem Code Only MAR Reviewed: Yes Vital Signs & Weight: Vital Signs (12 hours) Temp Pulse Resp BP Pulse Ox 06/17/17 11:45 98.6 F 72 16 147/90 H 96 06/17/17 08:04 75 06/17/17 08:00 98 F 75 16 149/90 H 94 L 06/17/17 04:22 98.0 F 80 16 134/82 97 Weight Admit Weight 155 lb Weight 155 lb I&O: 06/16/17 06/17/17 06/18/17 06:59 06:59 06:59 Intake Total 410 720 Balance 410 720 Result Diagrams: 06/17/17 04:28 06/17/17 04:28 Phys Exam - Physical Examination Constitutional: NAD Respiratory: no wheezing, no rhonchi Cardiovascular: RRR, no rub Gastrointestinal: soft, non-tender, positive bowel sounds Musculoskeletal: no edema Neurological: moves all 4 limbs Dx/Plan (1) GIB (gastrointestinal bleeding) Code(s): K92.2 - GASTROINTESTINAL HEMORRHAGE, UNSPECIFIED Status: Acute Comment: s/p EGD - on IV PPI (2) Symptomatic anemia Code(s): D64.9 - ANEMIA, UNSPECIFIED Status: Acute (3) Chronic a-fib Code(s): I48.2 - CHRONIC ATRIAL FIBRILLATION Status: Chronic (4) Diastolic heart failure Code(s): I50.30 - UNSPECIFIED DIASTOLIC (CONGESTIVE) HEART FAILURE Status: Chronic Qualifiers: Heart failure chronicity: chronic Qualified Code(s): I50.32 - Chronic diastolic (congestive) heart failure (5) Metastatic breast cancer Code(s): C50.919 - MALIGNANT NEOPLASM OF UNSP SITE OF UNSPECIFIED FEMALE BREAST Status: Chronic (6) Anemia due to blood loss, acute Code(s): D62 - ACUTE POSTHEMORRHAGIC ANEMIA Status: Acute (7) Physical deconditioning Code(s): R53.81 - OTHER MALAISE Status: Chronic (8) Hypokalemia Code(s): E87.6 - HYPOKALEMIA Status: Chronic (9) Other issues per previous notes - Plan cont current plan of care, DVT proph w/SCDs * DC PO Potassium chloride * AM HH * GI following * Cont IV PPI * On clear liqd diet * Cont to monitor * Increase activity * Await Rehab eval * Increase Metoprolol to 25 BID Review of Systems - Review of Systems Respiratory: negative: Cough, Dry, Shortness of Breath, Hemoptysis, SOB with Excertion, Pleuritic Pain, Sputum, Wheezing Cardiovascular: negative: Chest Pain, Palpitations, Orthopnea, Paroxysmal Noc. Dyspnea, Edema, Light Headedness, Other - Medications/Allergies Allergies/Adverse Reactions: Allergies Allergy/AdvReac Type Severity Reaction Status Date / Time adhesive Allergy Rash Verified 05/10/17 20:01 amoxicillin trihydrate Allergy Rash Verified 05/10/17 20:01 [From Augmentin] ciprofloxacin [From Cipro] Allergy Rash Verified 05/10/17 20:01 ciprofloxacin HCl Allergy Rash Verified 05/10/17 20:01 [From Cipro] potassium clavulanate Allergy Rash Verified 05/10/17 20:01 [From Augmentin] sulfamethoxazole Allergy Rash Verified 05/10/17 20:01 [From Bactrim] trimethoprim [From Bactrim] Allergy Rash Verified 05/10/17 20:01 Medications: Current Medications Acetaminophen (Tylenol) 650 mg PO Q4H PRN PRN Reason: Headache/Fever or Pain Last Admin: 06/13/17 22:44 Dose: 650 mg Calcium Carbonate (Tums) 500 mg PO Q6H PRN PRN Reason: Indigestion Last Admin: 06/16/17 22:30 Dose: 500 mg Citalopram Hydrobromide (Celexa) 20 mg PO HS [facility] Last Admin: 06/16/17 20:40 Dose: 20 mg Cyanocobalamin (Vitamin B-12) 1,000 mcg PO DAILY [facility] Last Admin: 06/17/17 08:02 Dose: 1,000 mcg Dexamethasone (Decadron) 2 mg PO QAM[facility] Last Admin: 06/17/17 08:02 Dose: 2 mg Digoxin (Lanoxin) 0.125 mg PO QAM [facility] Last Admin: 06/17/17 08:04 Dose: 0.125 mg Diltiazem HCl (Cardizem) 30 mg PO ACHS [facility] Last Admin: 06/17/17 11:52 Dose: 30 mg Docusate Sodium (Colace) 100 mg PO BID [facility] Last Admin: 06/17/17 08:01 Dose: 100 mg Hydralazine HCl (Apresoline) 10 mg SLOW IVP Q4H PRN PRN Reason: Systolic BP > 180 Lactulose (Lactulose) 20 gm PO DAILYPRN PRN PRN Reason: Constipation Levothyroxine Sodium (Synthroid) 25 mcg PO 0600 [facility] Last Admin: 06/17/17 06:36 Dose: 25 mcg Magnesium Hydroxide (Milk Of Magnesium) 30 ml PO DAILYPRN PRN PRN Reason: Constipation Metoprolol Tartrate (Lopressor) 25 mg PO BID [facility] Multivitamins (Theragran) 1 tab PO DAILY [facility] Last Admin: 06/17/17 08:05 Dose: 1 tab Ondansetron HCl (Zofran Odt) 4 mg PO Q6H PRN PRN Reason: Nausea/Vomiting Ondansetron HCl (Zofran) 4 mg IVP Q6H PRN PRN Reason: Nausea/Vomiting Pantoprazole Sodium (Protonix) 40 mg IVP Q12HR [facility] Last Admin: 06/17/17 08:00 Dose: 40 mg Sodium Chloride (Flush - Normal Saline) 10 ml IVF Q12HR [facility] Last Admin: 06/17/17 08:01 Dose: 10 ml Sodium Chloride (Flush - Normal Saline) 10 ml IVF PRN PRN PRN Reason: Saline Flush Last Admin: 06/16/17 13:25 Dose: 10 ml Sodium Chloride (Flush - Normal Saline) 10 ml IVF PRN PRN PRN Reason: Saline Flush
--- NOTE | 2017-06-17 18:39 | PRG ---
DATE OF SERVICE: 06/17/2017 SUBJECTIVE: Ms. Garcia has passed a couple of more brown stools last night and today. Her hemoglobi n has remained stable. She has no abdominal pain. IMPRESSION: Marginal ulcer with visible vessel and presenting with anemia of acute blood loss and g astrointestinal bleed. The vessel was cauterized. Bleeding appears to stop at this point. RECOMMENDATIONS: 1. Protonix 40 mg daily. 2. I will sign off. Please call if GI can be of assistance.
[2017-06-17] MEDS: Citalopram 20 MG TAB PO SCH (21:00)
[2017-06-18] MEDS: Levothyroxine Sodium 25 MCG TAB PO SCH (06:10)
[2017-06-18] MEDS: Docusate 100 MG CAP PO SCH (08:35)
[2017-06-18] MEDS: Digoxin 0.125 MG TAB PO SCH (08:36)
[2017-06-18] MEDS: Metoprolol Tartrate 25 MG TAB PO SCH (08:37)
[2017-06-18] MEDS: Cyanocobalamin (Vitamin B-12) 1,000 MCG TAB PO SCH (08:37)
[2017-06-18] MEDS: Multivit, Therapeutic 1 TAB PO SCH (08:37)
[2017-06-18] MEDS: Dexamethasone 4 MG TAB PO SCH (08:37)
--- NOTE | 2017-06-18 15:22 | DIS ---
DATE OF DISCHARGE: 06/18/2017 DISCHARGE DISPOSITION: Inpatient rehabilitation. FOLLOWUP: 1. Follow up with primary care physician, Dr. Allie Serra in 1 week. 2. Code status: DO NOT RESUSCITATE confirmed with the patient. 3. Followup with Dr. Mason, gastroenterology in 2 weeks. 4. CBC and base met in 3-4 days is recommended. Primary care physician is advised to follow. DISCHARGE MEDICATIONS: 1. Tylenol as needed. 2. Fosamax 35 mg every 7 days. 3. Dulcolax suppository as needed. 4. Calcium 500 mg b.i.d. 5. Vitamin D3 1000 units q.p.m. 6. Citalopram 20 mg at bedtime. 7. Cranberry 300 mg 3 times daily. 8. Vitamin B12 1000 mcg daily. 9. Decadron 2 mg daily. 10. Digoxin 0.125 mg daily. 11. Cardizem 30 mg a.c. and at bedtime. 12. Colace 100 mg b.i.d. 13. Levothyroxine 25 mcg daily. 14. Lopressor 25 mg b.i.d. 15. Multivitamin 1 tablet daily. 16. Protonix 40 mg daily. INPATIENT CONSULTANTS: 1. Gastroenterology, Dr. Tejinder Mason. 2. Oncology, Dr. Willams. BRIEF HOSPITAL COURSE: Patient is an 82-year-old female with metastatic breast cancer who presented to the hospital with generalized weakness. Please refer to the history and physical dated 06/09/2017 for further details. The patient was admitted to the hospital with the diagnosis of suspected symptomatic anemia. Her hem oglobin on admission was 6.9. She received blood transfusion. Hemoccult was positive for occult blo od. The patient was seen by Gastroenterology, Dr. Mason. She underwent EGD on 06/12/2017 that showe d visible vessel at the anastomotic ulcer with slight oozing. This was injected with epinephrine and cauterized with a 10-Arabic heater probe. Her hemoglobin stabilized. One to two days later, she cantrell d recurrent GI bleeding. Protonix was again changed to IV. Her hemoglobin remained stable. A stool has cleared up. She received a total of 6 units of PRBC this hospital stay. She has been cleared b y Gastroenterology for discharge. FINAL DIAGNOSES: 1. Symptomatic anemia/gastrointestinal bleeding secondary to anastomotic ulcer. 2. Chronic atrial fibrillation, not an anticoagulation candidate. 3. Chronic diastolic heart failure, compensated. 4. Metastatic breast cancer. 5. Atrial fibrillation with rapid ventricular response during the initial admission, controlled on c urrent regimen. 6. Dyslipidemia. 7. Anemia secondary to gastrointestinal blood loss. 8. DO NOT RESUSCITATE. 9. Physical deconditioning. 10. Hypokalemia, corrected. Plan of care was discussed with the patient and the family at the bedside. They stated understanding .
[2017-06-18 15:42] VITALS: BP 134/82; TEMP 97.7
== END 2017-06-18 16:50 | DRG 378 ==
LOC: ERS 15:26 → ONC 18:14
PROVIDERS: ADMIT Internal Medicine; ATTEND Internal Medicine
PROC: 30233N1 Transfusion of Nonautologous Red Blood Cells into Peripheral Vein, Percutaneous Approach (ICD-10-PCS; 2017-06-09)
PROC: 0W3P8ZZ Control Bleeding in Gastrointestinal Tract, Via Natural or Artificial Opening Endoscopic (ICD-10-PCS; principal; 2017-06-12)
DX: K28.0 Acute gastrojejunal ulcer with hemorrhage (principal); E46 Unspecified protein-calorie malnutrition; K31.5 Obstruction of duodenum; I11.0 Hypertensive heart disease with heart failure; I50.32 Chronic diastolic (congestive) heart failure; C50.919 Malignant neoplasm of unspecified site of unspecified female breast; I48.2 Chronic atrial fibrillation; D62 Acute posthemorrhagic anemia; E78.5 Hyperlipidemia, unspecified; E87.6 Hypokalemia; Z66 Do not resuscitate; R91.8 Other nonspecific abnormal finding of lung field
CPT/HCPCS: 36415; 36430; 51701; 71010; 71275; 80048; 80053; 80069; 80162; 82274; 82553; 82728; 83540; 83550; 83605; 83690; 83735; 83880; 84100; 84484; 85014; 85018; 85025; 85046; 85049; 85610; 85730; 86850; 86900; 86901; 87040; 93005; A4216; C9113; G8978-GP-CM; G8979-GP-CJ; G8987-GO-CM; G8988-GO-CK; J1642; J2704; J7050; J8540; P9016

== ENCOUNTER 2017-06-21 18:28 | Inpatient (IN) | payer MEDICARE, OTHER ==
[2017-06-21 19:10] LABS: #Lymphocytes 0.7 thou/uL (1.20-3.40); #Monocytes 0.2 thou/uL (0.11-0.59); #Neutrophils 2.6 thou/uL (1.40-6.50); %Eosinophils 0.4 % (0.0-10.0); %Lymphocytes 19.7 % (21.0-51.0); %Monocytes 5.6 % (0.0-10.0); Hematocrit 31.9 % (36.0-47.0); Mean Platelet Volume 7.8 fL (7.4-10.4); Red Blood Cell (RBC) Count 3.29 mill/uL (4.20-5.40); White Blood Cell (WBC) Count 3.5 thou/uL (4.8-10.8)
[2017-06-21 19:20] LABS: Lactic Acid - Sepsis 1.8 mmol/L (0.5-2.2)
[2017-06-21 19:24] LABS: ALT (SGPT) 36 U/L (8-55); AST (SGOT) 19 U/L (5-34); Alkaline Phosphatase 85 U/L (40-150); Anion Gap 8 mmol/L (10-20); BUN (Urea Nitrogen) 17 mg/dL (9.8-20.1); Bilirubin, Total 0.3 mg/dL (0.2-1.2); CK (CPK) 16 U/L (29-168); Calc. Creatinine Clearance 0 mL/min (70-130); Calcium 7.6 mg/dL (7.8-10.44); Carbon Dioxide 28 mmol/L (23-31); Chloride 96 mmol/L (98-107); Estimated GFR-MDRD Greater than 90; Globulin 1.7 g/dL (2.4-3.5); Lipase 33 U/L (8-78); Protein, Total 3.9 g/dL (6.0-8.3)
[2017-06-21 19:25] LABS: PTT 25.1 SEC (22.9-36.1); Prothrombin Time 15.5 SEC (12.0-14.7)
--- NOTE | 2017-06-21 19:40 | RAD ---
CHEST ONE VIEW 06/21/17 HISTORY: Emergency exam. Pain. COMPARISON: Chest one view 06/16/17. FINDINGS: Port catheter is similar. Cardiac silhouette and mediastinal contours are similar. There is blunting of the left lateral costophrenic sulcus which is unchanged. There is new right upper lobe air space o pacity. IMPRESSION: Right upper lobe air space opacity concerning for infection. Follow up recommended. POS: [facility]
[2017-06-21 20:11] LABS: Bilirubin Negative (Negative); Blood, Urine Small (Negative); Glucose, Urine (Dipstick) Negative (Negative); Ketone, Urine Negative (Negative); Nitrite Positive (Negative); Protein, Urine (Dipstick) 30 mg/dL (Neg-Trace); Urobilinogen 0.2 mg/dL (0.2-1.0)
[2017-06-21 20:13] LABS: Bacteria/HPF 4+ HPF (None Seen)
[2017-06-21 20:18] LABS: Yeast-All Forms None Seen HPF (None Seen)
[2017-06-21 20:19] LABS: Hyaline Casts/LPF 0-3 HYALINE CAST LPF (0-3 Hyaline)
--- NOTE | 2017-06-21 20:20 | CT ---
CT ABDOMEN AND PELVIS WITH CONTRAST 06/21/17 HISTORY: Left lower quadrant pain. COMPARISON: 05/14/17. FINDINGS: There is small volume pleural effusions bilaterally. There is moderate volume ascites, increase from the comparison examination. Moderate intrahepatic and extrahepatic biliary dilatation persists. Sever e mesenteric artery and celiac arteries are both patent. There is mucosal hyperenhancement of the pro ximal small bowel. Wall thickening of the stomach is similar. Urinary bladder wall thickening is similar. There is small volume free fluid in the deep pelvis. There is abnormal enhancement of the peritoneum along the right pericolic gutter. IMPRESSION: 1. Mildly increased ascites from the comparison examination with abnormal peritoneal enhancement likely reflective of peritonitis. 2. Remainder of the findings are completely unchanged with gastric wall thickening, intrahepatic and extrahepatic biliary dilatation, some mucosal hyperenhancement of the proximal small bowel. POS: [facility]
[2017-06-21] MEDS ORDERED: cefTRIAXone\\ROCEPHIN 1 GM, Syringe 0.4 ML in Sterile Water 9.6 ML SLOW IVP SCH (20:30)
[2017-06-21] MEDS ORDERED: Azithromycin 500 MG in Sodium Chloride 0.9% 250 ML 250 ML IVPB ONE (20:30)
[2017-06-21] MEDS ORDERED: Azithromycin 500 MG VIAL ONE (21:01)
[2017-06-21] MEDS ORDERED: Dextrose 5% in Water 1,000 ML IV PRN (22:53)
[2017-06-21] MEDS ORDERED: HYDROcodone/Acetaminophen 5/325 mg Tablet PO PRN (22:53)
[2017-06-21] MEDS ORDERED: Dextrose 50% Abboject 50 ML SYRINGE SLOW IVP PRN (22:53)
[2017-06-21] MEDS ORDERED: Bisacodyl 10 MG SUPP PR PRN (22:53)
[2017-06-21] MEDS ORDERED: Acetaminophen 325 MG TAB PO PRN (22:53)
[2017-06-21] MEDS ORDERED: Ondansetron HCl/PF 4 MG/2 ML Vial IVP PRN (22:53)
[2017-06-21 23:03] VITALS: BMI 23.1
[2017-06-21] MEDS ORDERED: Famotidine 20 MG TAB PO SCH (23:15)
[2017-06-21] MEDS ORDERED: Docusate 100 MG CAP PO SCH (23:15)
[2017-06-21] MEDS: Sodium Chloride 0.9% 1,000 ML IV SCH (23:22)
[2017-06-22 04:36] LABS: Anion Gap 8 mmol/L (10-20); BUN (Urea Nitrogen) 13 mg/dL (9.8-20.1); Calc. Creatinine Clearance 118 mL/min (70-130); Calcium 7.4 mg/dL (7.8-10.44); Carbon Dioxide 27 mmol/L (23-31); Chloride 98 mmol/L (98-107); Estimated GFR-MDRD Greater than 90
[2017-06-22] MEDS: Levothyroxine Sodium 25 MCG TAB PO SCH (05:11)
[2017-06-22 05:20] LABS: #Lymphocytes 0.9 thou/uL (1.20-3.40); #Monocytes 0.2 thou/uL (0.11-0.59); #Neutrophils 1.8 thou/uL (1.40-6.50); %Basophils 0.2 % (0.0-1.0); %Eosinophils 0.5 % (0.0-10.0); %Lymphocytes 30.5 % (21.0-51.0); %Monocytes 8.3 % (0.0-10.0); Hematocrit 27.4 % (36.0-47.0); Mean Platelet Volume 7.1 fL (7.4-10.4); Red Blood Cell (RBC) Count 2.84 mill/uL (4.20-5.40); White Blood Cell (WBC) Count 2.9 thou/uL (4.8-10.8)
--- NOTE | 2017-06-22 07:32 | HP ---
CHIEF COMPLAINT: Hypertension. HISTORY OF PRESENT ILLNESS: This is an 82-year-old pleasant lady with a history of metastatic breast cancer. Dr. Willams, oncologist comes into the hospital with episode of hypotension at the rehab [facility]. The patient was recently discharged from our facility on the 06/18 to inpatient rehabilitation after being treated for symptomatic anemia and GI bleed secondary to anastomotic ulcer. The patient was doing okay at the rehab, could walk a little bit with a walker, but today when they checked her blood pressure, it was low in the 60s and hence she was brought to the emergency room for further mala luation and treatment. She denies any chest pain, shortness of breath, cough, or nausea, vomiting. Most of the history is obtained from the daughter and chart as the patient is a very poor historian. At the rehab center, they also did some lactic acid which was high, but the lactic acid repeated now in the ER is 1.8. There were concern for sepsis at that time, so blood culture, urine cultures have been done and a CT scan of the abdomen and pelvis has been done, which is yet to be read. She is cu rrently not on chemotherapy. She will be admitted for evaluation of hypertension, though she is norm otensive right now with 104/63. PAST MEDICAL HISTORY: Significant for metastatic breast cancer, hypertension, hyperlipidemia, atrial fibrillation, chronic diastolic heart failure compensated, chronic atrial fibrillation without any a nticoagulation, metastatic breast cancer, dyslipidemia, history of symptomatic anemia, secondary to g astric bleeding, secondary to anastomotic ulcer, physical deconditioning. PAST SURGICAL HISTORY: Significant for MediPort placement, mastectomy, left shoulder injury. ALLERGIES: To ADHESIVES, AMOXICILLIN, AUGMENTIN, CIPRO, SULFA, TRIMETHOPRIM. FAMILY HISTORY: Unremarkable for diabetes. SOCIAL HISTORY: Nonsmoker, nondrinker. She is . Her is the surrogate decision maker . Her daughter is a bit concerned about this. Patient is currently in rehabilitation. MEDICATIONS: A complete list is not available right now, but she takes metoprolol, Cardizem and digo isai for blood pressure control and rate control. For full medication list please see MAR. REVIEW OF SYSTEMS: Significant for weakness and episode of hypotension and no loss of consciousness. No fever, no chills, no headache, no appetite, no hearing loss, and latencies. No cough, no chest pain, diarrhea, dysuria, or polyuria. No memory or mood changes noted pain. PHYSICAL EXAMINATION: VITAL SIGNS: Blood pressure is 104/63 right now, though the highest systolic was 60 at the rehab. P ulse is 87, respirations 16, temperature 98.3, satting 96% on 3 liters. GENERAL: Patient is lying in bed in no apparent distress. HEENT: Atraumatic and normocephalic. Pupils are equally round, react to light. Extraocular movemen ts intact. Mucous membranes moist. NECK: Supple. No JVD. CHEST: Breath sounds. There are no rales or rhonchi. HEART: S1, S2. No murmurs, or gallops. ABDOMEN: Soft. EXTREMITIES: No cyanosis, clubbing, or edema. Distal pulses present. NEUROLOGIC: Alert, awake, oriented. No cranial deficits. No sensorimotor deficits. LABORATORY DATA: Chest x-ray shows possible right upper lobe opacity concerning for infection. We w ill repeat chest x-ray. Thyroid hormone is 2.3. Troponin is 0.03. INR is 1.2. Lactic acid is 1.8. Lipase is 33. Sodium is 128, potassium 4.1, chloride is 96, creatinine is 0.5. Glucose is 174. W BC count is 3.5, hemoglobin is 10.4. ASSESSMENT AND PLAN: 1. Episode of hypertension. We will gently hydrate the patient and monitor blood pressure. This ho spital stay, we will try to optimize blood pressure medication doses as needed. 2. Hyponatremia. We will gently hydrate the patient and monitor sodium. 3. History of symptomatic anemia secondary to anastomotic ulcer, status post EGD is stable. 4. Chronic atrial fibrillation without anticoagulation, stable. 5. Chronic diastolic congestive heart failure, stable. Metastatic breast cancer followed by Dr. Miriam camacho. We will consult him to have his assistance to help me in the case to see what would cause if t here are any other causes of the blood pressure of the hypertension. Patient is a DNR. Sequential c ompression devices for deep venous thrombosis prophylaxis. I will follow the labs and do the need fo r.
--- NOTE | 2017-06-22 10:23 | RAD ---
PA AND LATERAL CHEST: Date: 06/22/17 COMPARISON: 06/21/17 study. HISTORY: Chest pain radiating to back and left arm. FINDINGS: Heart size is enlarged. Right-sided HemoSplit catheter is present. The lungs appear of any infiltrati ve process. There are no signs of failure. Right upper lobe air space opacity appears improved as com pared to the prior exam. IMPRESSION: 1. [id number]. 2. Improvement to the right upper lobe air space opacity as compared to the previous study. POS: [facility]
[2017-06-22] MEDS: Docusate 100 MG CAP PO SCH ×2 (10:29→20:28)
[2017-06-22] MEDS: Dexamethasone 4 MG TAB PO SCH (10:29)
[2017-06-22] MEDS: Digoxin 0.125 MG TAB PO SCH (10:30)
[2017-06-22] MEDS: Famotidine 20 MG TAB PO SCH ×2 (10:30→20:29)
--- NOTE | 2017-06-22 10:38 | PDOC.PN ---
- Subjective Encounter Start Date: 06/22/17 Encounter Start Time: 10:40 feels a littel better still deconditioned no n/v no f/c - Objective Resuscitation Status: Resuscitation Status DNR:Do Not Resuscitate MAR Reviewed: Yes Vital Signs & Weight: Vital Signs (12 hours) Temp Pulse Resp BP Pulse Ox 06/22/17 10:30 88 06/22/17 07:24 98.1 F 88 16 121/74 97 06/22/17 01:49 97.7 F 91 16 133/77 100 Weight Weight 156 lb 8 oz I&O: 06/21/17 06/22/17 06/23/17 06:59 06:59 06:59 Intake Total 960 Balance 960 Result Diagrams: 06/22/17 04:04 06/22/17 04:04 Phys Exam - Physical Examination Constitutional: NAD HEENT: PERRLA Neck: no JVD Respiratory: no wheezing Cardiovascular: no significant murmur Gastrointestinal: soft Musculoskeletal: pulses present Neurological: moves all 4 limbs Psychiatric: A&O x 3 Dx/Plan (1) Sepsis Code(s): A41.9 - SEPSIS, UNSPECIFIED ORGANISM Status: Acute (2) UTI (urinary tract infection) due to Enterococcus Code(s): N39.0 - URINARY TRACT INFECTION, SITE NOT SPECIFIED; B95.2 - ENTEROCOCCUS THE CAUSE OF DISEASES CLASSIFIED ELSEWHERE Status: Acute (3) Hyponatremia Code(s): E87.1 - HYPO-OSMOLALITY AND HYPONATREMIA Status: Acute (4) Chronic a-fib Code(s): I48.2 - CHRONIC ATRIAL FIBRILLATION Status: Chronic (5) Diastolic heart failure Code(s): I50.30 - UNSPECIFIED DIASTOLIC (CONGESTIVE) HEART FAILURE Status: Chronic Qualifiers: (6) Hypertension Code(s): I10 - ESSENTIAL (PRIMARY) HYPERTENSION Status: Chronic (7) Hypothyroidism Code(s): E03.9 - HYPOTHYROIDISM, UNSPECIFIED Status: Chronic (8) Metastatic breast cancer Code(s): C50.919 - MALIGNANT NEOPLASM OF UNSP SITE OF UNSPECIFIED FEMALE BREAST Status: Chronic (9) Physical deconditioning Code(s): R53.81 - OTHER MALAISE Status: Chronic (10) Ascites Code(s): R18.8 - OTHER ASCITES Status: Acute (11) Peritonitis Code(s): K65.9 - PERITONITIS, UNSPECIFIED Status: Acute - Plan * continue abx * us guided paracentesis * f/u dr kirkland and dr sinclair recommendations * monitor bp * f/u culture results
[2017-06-22] MEDS: Sodium Chloride 0.9% 1,000 ML IV SCH (15:58)
[2017-06-22] MEDS: Vancomycin HCl 1 GM in Premix Bag 1 BAG IVPB SCH (15:58)
--- NOTE | 2017-06-22 17:33 | CON ---
DATE OF CONSULTATION: 06/22/2017 REASON FOR CONSULTATION: Hypotension, concern of possible infection. HISTORY OF PRESENT ILLNESS: An 82-year-old who has a history of metastatic breast cancer with apparent peritoneal implants and a recent episode of GI bleed associated with an anastomotic ulcer, who had been transferred to rehabilitation and then developed hypotension, brought to the emergency room for further evaluation. During the event, the patient noticed a sudden onset of intense mid abdominal pain which has resolved after treatment. No headaches , visual symptoms, sore throat, odynophagia, dysphagia, no vomiting, no dyspnea or chest pain, some back pain, no more abdominal pain, no diarrhea. She is actually constipated. No genitourinary symptoms. No joint symptoms. PAST MEDICAL HISTORY: Metastatic breast cancer with evidence of soft tissue mass involving the omentum, diagnosis metastatic carcinoma. She had a duodenal biopsy which showed unremarkable findings a few months before, history of hyperlipidemia, atrial fibrillation, diastolic heart failure, recent gastric bleeding from anastomotic ulcer. PAST SURGICAL HISTORY: MediPort placement, mastectomy, left side. ALLERGIES: AMOXICILLIN, CIPRO, SULFA DRUGS, and BACTRIM. FAMILY HISTORY: Noncontributory. SOCIAL HISTORY: Lives in [place], had been in the rehab station until she decompensated this time. CURRENT MEDICATIONS: Tylenol, Cannon, Dulcolax, ceftriaxone, Decadron, Colace, Synthroid, Protonix, vancomycin. PHYSICAL EXAMINATION: VITAL SIGNS: T-max 98.1, blood pressure 124/76, pulse of 96, respirations 16 to 20, O2 saturation 99%. GENERAL: Appears chronically ill but in no acute distress, oriented, pleasant. SKIN: With the access to left-sided port chest area and no Ruelas catheter. Alopecia is noted. HEENT: Ocular movements are conjugate. Oral cavity is with no significant findings. NECK: Supple. LUNGS: With symmetric clear breath sounds. HEART: Irregular rate and rhythm. ABDOMEN: Mildly distended. No tenderness on palpation or percussion. Question of ascites, no bladder distention. EXTREMITIES: No joint inflammatory activity. She has tenderness on mobilization of lower extremities. NEUROLOGIC: She is awake, alert, oriented, follows commands. LABORATORY DATA: White cell count is 2.9, hemoglobin 9.3, platelets 70,000, 60 % neutrophils. INR 1.2. Sodium 129, creatinine 0.42. Liver profile normal. Albumin 2.2. Urinalysis with greater than 50 wbc's. A microbiology with gram- positive cocci in one set of blood cultures, pending further identification. Urine culture with Klebsiella, Enterobacter, gram-negative linda, and Enterococcus. The Enterococcus greater than 100,000 CFUs, the gram-negative linda with 10-25 CFUs, Klebsiella pneumo, Enterobacter greater than 100,000 CFUs. Chest x-ray with cardiomegaly, improvement in the right upper lobes airspace opacity compared with the previous study. Abdomen and pelvis CT from 2016 mildly increased ascites with abnormal peritoneal enhancement. ASSESSMENT: 1. Metastatic breast cancer with documented omental mass. 2. Hypotension. 3. Abnormal urinalysis with positive urine culture with different organisms. 4. One out of 2 sets with positive blood cultures with gram-positive cocci yet to be fully identified and susceptibility tested. We do not have a preliminary identification yet. DISCUSSION: Differential diagnosis includes bacteremia from urinary tract versus peritonitis associated with the ascites versus pain associated with peritoneal carcinomatosis. Continue Rocephin and vancomycin until we have further identification of the organism from the blood cultures. This organism may reflect contamination of the sample depending on the results of the identification. If it is an Enterococcus identified, then it would be more likely that this represents an invasive UTI. The antimicrobial therapy would then be used to transition according to the susceptibilities of the Enterococcus. If it is coagulase-negative Staphylococcus, then it would be a more likely reflection of contamination of the sample. In that case, the peritonitis would be the focus of concern and it would require sampling of the fluid if feasible for further identification of the problem. Continue Rocephin and vancomycin until the the above issues have resolved. [facility]
[2017-06-22] MEDS: HumaLOG 300 UNITS/3 ML VIAL SC PRN (18:08)
[2017-06-22] MEDS: cefTRIAXone\\ROCEPHIN 1 GM, Syringe 0.4 ML in Sterile Water 9.6 ML SLOW IVP SCH (20:28)
[2017-06-23] MEDS: Vancomycin HCl 1 GM in Premix Bag 1 BAG IVPB SCH ×2 (03:21→16:10)
[2017-06-23] MEDS: Levothyroxine Sodium 25 MCG TAB PO SCH (03:21)
[2017-06-23 05:08] LABS: Anion Gap 9 mmol/L (10-20); BUN (Urea Nitrogen) 10 mg/dL (9.8-20.1); Calc. Creatinine Clearance 118 mL/min (70-130); Calcium 7.5 mg/dL (7.8-10.44); Carbon Dioxide 29 mmol/L (23-31); Chloride 99 mmol/L (98-107); Estimated GFR-MDRD Greater than 90
--- NOTE | 2017-06-23 09:30 | ULT ---
LIMITED ABDOMINAL SONOGRAM: Date: 06/23/17 HISTORY: Abdominal pain. Possible peritonitis. FINDINGS/IMPRESSION: Exam was originally planned as a sonographic guided paracentesis. Survey of the abdomen, however, lashawn ws minimal fluid, not a sufficient quantity for image-guided aspiration. Therefore, paracentesis was not performed. POS: [facility]
[2017-06-23] MEDS: Sodium Chloride 0.9% 1,000 ML IV SCH (09:46)
[2017-06-23] MEDS: Digoxin 0.125 MG TAB PO SCH (09:47)
[2017-06-23] MEDS: Docusate 100 MG CAP PO SCH ×2 (09:47→20:56)
[2017-06-23] MEDS: Dexamethasone 4 MG TAB PO SCH (09:47)
[2017-06-23] MEDS: Famotidine 20 MG TAB PO SCH ×2 (09:48→20:56)
--- NOTE | 2017-06-23 12:39 | PDOC.PN ---
- Subjective Encounter Start Date: 06/23/17 Encounter Start Time: 10:45 -: old records requested/rev Pt seen and examined on rounds, chart reviewed in its entirety. This is my first visit with this patient. 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 In for abd pain, hypotension. UA with many sq epithelial celll,s Cx with pseudomonas and normal xu. No symptoms. Suspect pt to have IVVD due to PCM and hypoalbuminemia with 3rd spacing No F/C, no n/V/d/C, no CP, no SOB. Pt feels weak. decreased appetite, has never spoken to a tube blower. 10 point ROS performed and neg for all systems except as per HPI - Objective MAR Reviewed: Yes Vital Signs & Weight: Vital Signs (12 hours) Temp Pulse Resp BP BP BP BP 06/23/17 11:15 98.1 F 100 20 118/77 115/60 115/79 06/23/17 09:47 95 06/23/17 09:45 97.4 F L 86 16 06/23/17 07:45 97.4 F L 86 16 123/80 06/23/17 03:16 97.4 F L 88 18 107/68 Pulse Ox 06/23/17 11:15 98 06/23/17 09:47 06/23/17 09:45 97 06/23/17 07:45 97 06/23/17 03:16 97 Weight Weight 156 lb 6.4 oz Result Diagrams: 06/22/17 04:04 06/23/17 04:16 Additional Labs: Accuchecks 06/22/17 16:27 POC Glucose 216 H Radiology Reviewed by me: Yes EKG Reviewed by me: Yes Phys Exam - Physical Examination Constitutional: NAD chronically ill appearing, pale HEENT: PERRLA, moist MMs, sclera anicteric, oral pharynx no lesions Neck: no nodes, no JVD, supple, full ROM Respiratory: no wheezing, no rales, no rhonchi faint bibasilar crackles Cardiovascular: RRR, no significant murmur, no rub Gastrointestinal: soft, non-tender, no distention, positive bowel sounds Musculoskeletal: pulses present, edema present Neurological: non-focal, normal sensation, moves all 4 limbs 3/5 strength Lymphatic: no nodes Psychiatric: normal affect, A&O x 3 Skin: no rash, normal turgor, cap refill <2 seconds Dx/Plan (1) Severe protein-calorie malnutrition Code(s): E43 - UNSPECIFIED SEVERE PROTEIN-CALORIE MALNUTRITION Status: Acute Comment: tube blower consult, add ensure TID between meals, pt prefers vanilla (2) Hyponatremia Code(s): E87.1 - HYPO-OSMOLALITY AND HYPONATREMIA Status: Acute Comment: Na up to 133 today. (3) Sepsis Code(s): A41.9 - SEPSIS, UNSPECIFIED ORGANISM Status: Resolved Qualifiers: Sepsis type: sepsis due to unspecified organism Qualified Code(s): A41.9 - Sepsis, unspecified organism Comment: suspect noninfectious and just orthostasis from intravascular volume depletion (4) UTI (urinary tract infection) due to Enterococcus Code(s): N39.0 - URINARY TRACT INFECTION, SITE NOT SPECIFIED; B95.2 - ENTEROCOCCUS THE CAUSE OF DISEASES CLASSIFIED ELSEWHERE Status: Ruled-out Comment: ruled out. repeat UA. (5) Acute hypoxemic respiratory failure Code(s): J96.01 - ACUTE RESPIRATORY FAILURE WITH HYPOXIA Status: Acute Comment: wean O2 as tolerated. most likely pulm edema form 3rd spacing - Plan cont current plan of care, plan discussed w/ family, PT/OT, social studies teacher, out of bed/ambulate * .
[2017-06-23] MEDS: HumaLOG 300 UNITS/3 ML VIAL SC PRN (18:06)
[2017-06-23] MEDS: cefTRIAXone\\ROCEPHIN 1 GM, Syringe 0.4 ML in Sterile Water 9.6 ML SLOW IVP SCH (20:55)
[2017-06-24] MEDS: Vancomycin HCl 1 GM in Premix Bag 1 BAG IVPB SCH ×2 (03:38→15:50)
[2017-06-24 04:02] LABS: #Eosinphils 0.1 thou/uL (0.0-0.7); #Lymphocytes 0.8 thou/uL (1.20-3.40); #Monocytes 0.3 thou/uL (0.11-0.59); #Neutrophils 2.2 thou/uL (1.40-6.50); %Basophils 0.6 % (0.0-1.0); %Eosinophils 2.8 % (0.0-10.0); %Lymphocytes 22.9 % (21.0-51.0); %Monocytes 8.6 % (0.0-10.0); Mean Platelet Volume 7.2 fL (7.4-10.4); Red Blood Cell (RBC) Count 2.68 mill/uL (4.20-5.40); White Blood Cell (WBC) Count 3.4 thou/uL (4.8-10.8)
[2017-06-24 04:11] LABS: Anion Gap 6 mmol/L (10-20); BUN (Urea Nitrogen) 9 mg/dL (9.8-20.1); Calc. Creatinine Clearance 118 mL/min (70-130); Calcium 7.4 mg/dL (7.8-10.44); Carbon Dioxide 31 mmol/L (23-31); Chloride 100 mmol/L (98-107); Estimated GFR-MDRD Greater than 90; Vancomycin, Trough 12.5 ug/mL
[2017-06-24] MEDS: Levothyroxine Sodium 25 MCG TAB PO SCH (06:02)
[2017-06-24] MEDS: Digoxin 0.125 MG TAB PO SCH (08:35)
[2017-06-24] MEDS: Famotidine 20 MG TAB PO SCH (08:36)
[2017-06-24] MEDS: Dexamethasone 4 MG TAB PO SCH (08:36)
[2017-06-24] MEDS: Docusate 100 MG CAP PO SCH (08:36)
[2017-06-24] MEDS ORDERED: Furosemide 20 MG/2 ML VIAL SLOW IVP SCH (10:00)
--- NOTE | 2017-06-24 10:28 | RAD ---
FRONTAL RADIOGRAPH CHEST PORTABLE UPRIGHT: Date: 06-24-17 Comparison: 06-16-17 History: Crackles. FINDINGS: There is a CT injected right sided port-a-cath, stable. Heart and mediastinal contours are stable. No pneumothorax is seen. There is interstitial prominence in the perihilar regions. There is new linear density in the right upper lobe in the medial right lung base as well as new hazy airspace disease in the right upper lobe and right perihilar region. In addition, worsening aeration is seen in the left lung base with partial consolidation/collapse of the left lower lobe and probabl e left pleural effusion. IMPRESSION: Worsening aeration is seen bilaterally as described above. Findings may reflect interval development of pulmonary edema, infectious pneumonitis or aspiration. Recommend follow up imaging following treat ment to document resolution. POS: AGUSTIN
[2017-06-24] MEDS ORDERED: Calcium Carbonate 500 MG ChewTAB PO PRN (12:03)
[2017-06-24 16:24] VITALS: BP 116/68; TEMP 98.4
--- NOTE | 2017-06-25 13:41 | DIS ---
DATE OF ADMISSION: 06/21/2017 DATE OF DISCHARGE: 06/24/2017 DISCHARGE DIAGNOSES: 1. Urinary tract infection due to Enterococcus. 2. Sepsis. 3. Hyponatremia. 4. Severe protein calorie malnutrition. 5. Acute hypoxemic respiratory failure. CONSULTATIONS: Jose Hooks M.D. on 06/22/2017. PROCEDURES: Abdominal ultrasound 06/23/2017 showed no drainable fluid. This paracentesis was not pe rformed. HISTORY AND PHYSICAL: Ms. Dotson is an 82-year-old female with history of metastatic breast cancer, w ho came into the hospital from the ER who had an episode of hypotension at the rehab center. She had been here and discharged on 06/18/2017 for symptomatic anemia and GI bleeding. She received fluids in the Emergency Department, lactic acid was initially high, but improved after f luids. We were called for admission. HOSPITAL COURSE: The patient was seen and examined. She was admitted to the hospital by Dr. Ronan burton, started IV fluids, antibiotics, and ID was consulted. Overnight, she did well and blood pressure remained stable. On 06/22/2017, she was seen by Dr. Hooks , who recommended a possible abdominal tap for ascites to rule out SBP; however, ultrasound revealed no drainable fluid. She was subsequently continued on antibiotics. Overnight on 06/22/2017 to 06/23/2017, the patient remained stable. She felt weak, but had no fevers or chills or other problems overnight. Her labs were stable. Creatinine was normal, her pulse rate was in the 80s and her blood pressure remained in the normal range. She had a negative orthostatics . She was feeling better and was given IV fluids and antibiotics. Waiting for urine culture. By 06/24, she was feeling better. Labs remained stable, vitals were stable. She is stable for discharg e with outpatient followup. Physical exam, the patient was seen and examined on the day of discharge . Discharge plan and disposition was discussed with the patient face to face at the bedside. DISCHARGE MEDICATIONS: 1. Tamoxifen 20 mg orally daily. 2. Macrobid 100 mg p.o. b.i.d. for 14 days. 3. Levothyroxine 25 mcg daily. 4. Multivitamin daily. 5. Calcium carbonate 1 tablet p.o. b.i.d. 6. Digoxin 0.125 mg p.o. q.a.m. 7. Metoprolol tartrate 25 mg b.i.d. 8. Dexamethasone 20 mg daily. 9. Diltiazem 30 mg p.o. a.c. and at bedtime. 10. Docusate 100 mg b.i.d. 11. Pantoprazole 40 mg daily. 12. Alendronate 35 mg weekly. 14 Cyanocobalamin 1000 mcg orally daily. 15. Cholecalciferol 1000 units orally at bedtime. 16. Cranberry extract 1000 mg daily. 17. Citalopram 20 mg p.o. at bedtime. DISCHARGE ACTIVITY: As tolerated. DISCHARGE DIET: Regular. Ensure Boost 3 times a day between meals and ad jackelyn. DISCHARGE DISPOSITION: The patient will be discharged home via private vehicle. DISCHARGE CONDITION: Stable.
--- NOTE | 2017-07-02 17:39 | PQF ---
JAMISON PINEDA CHRIS SIMPSON [id number] [facility]-235 [id number] CLINICAL DOCUMENTATION CLARIFICATION FORM: POST DISCHARGE Addendum to original discharge summary date: ____ Late entry note date: __ JAMISON PINEDA [id number] CHRIS SIMPSON PLEASE DOCUMENT YOUR RESPONSE BELOW PLEASE FAX RESPONSE BACK TO [phone] YOUR INPUT IS NEEDED TO CORRECTLY CODE A DIAGNOSIS FOR YOUR PATIENT. DATE: 07/02/2017 Please exercise your independent, professional judgment in responding to the clarification form. Clinical indicators are provided on the bottom of this form for your review Please check appropriate box(s) to clarify if the following diagnosis has been ruled in our ruled out: SEPSIS [ ] Ruled in diagnosis [ ] Continue to treat [ ] Resolved [ ] Ruled out diagnosis [ ] Cannot rule out diagnosis [ ] Other diagnosis [ ] Unable to determine In addition, please specify: Present on Admission (POA): [ ] Yes [ ] No [ ] Unable to determine For continuity of documentation, please document condition throughout progress notes and discharge summary. Thank You. CLINICAL INDICATORS - SIGNS / SYMPTOMS / LABS ER:Hypotension VSS A/O X3, Generally Weak H&P: BP 104/63, Pulse 87, RR 16, Temp 98.3, WBC 3.5, Lactic Acid 1.8 PROGRESS NOTES: "suspect noninfectious and just orthostasis from intravascular volume depletion". UTI ruled out, CONSULTATION: One out of two sets with positive blood cultures with gram- positive cocci yet to be fully identified and susceptibility tested TREATMENTS Antibiotics IV Rocephin, Zithromax (This form is maintained as a part of the permanent medical record) 2014 [employer]. All Rights Reserved [email or web address] [email or web address] [phone] [facility]
--- NOTE | 2017-07-02 17:51 | PQF ---
JAMISON PINEDA CHRIS SIMPSON [id number] [facility]-235 [id number] CLINICAL DOCUMENTATION CLARIFICATION FORM: POST DISCHARGE Addendum to original discharge summary date: ____ Late entry note date: __ JAMISON PINEDA [id number] CHRIS SIMPSON PLEASE DOCUMENT YOUR RESPONSE BELOW PLEASE FAX RESPONSE BACK TO [phone] YOUR INPUT IS NEEDED TO CORRECTLY CODE A DIAGNOSIS FOR YOUR PATIENT. DATE: 07/02/2017 Please exercise your independent, professional judgment in responding to the clarification form. Clinical indicators are provided on the bottom of this form for your review Please check appropriate box(s) to clarify if the following diagnosis has been ruled in our ruled out: PERITONITIS [ ] Ruled in diagnosis [ ] Continue to treat [ ] Resolved [ ] Ruled out diagnosis [ ] Cannot rule out diagnosis [ ] Other diagnosis [ ] Unable to determine In addition, please specify: Present on Admission (POA): [ ] Yes [ ] No [ ] Unable to determine For continuity of documentation, please document condition throughout progress notes and discharge summary. Thank You. CLINICAL INDICATORS - SIGNS / SYMPTOMS / LABS Abdominal Sonogram: minimal fluid, not sufficient for aspiration. Paracentesis not performed (This form is maintained as a part of the permanent medical record) 2014 [employer] All Rights Reserved [email or web address] [email or web address] [phone] [facility]
--- NOTE | 2017-07-02 18:01 | PQF ---
JAMISON PINEDA CHRIS SIMPSON [id number] [facility]-235 [id number] CLINICAL DOCUMENTATION CLARIFICATION FORM: POST DISCHARGE Addendum to original discharge summary date: ____ Late entry note date: __ JAMISON PINEDA [id number] CHRIS SIMPSON PLEASE DOCUMENT YOUR RESPONSE BELOW PLEASE FAX RESPONSE BACK TO [phone] YOUR INPUT IS NEEDED TO CORRECTLY CODE A DIAGNOSIS FOR YOUR PATIENT. DATE: 07/02/2017 Please exercise your independent, professional judgment in responding to the clarification form. Clinical indicators are provided on the bottom of this form for your review Please check appropriate box(s) to clarify if the following diagnosis has been ruled in our ruled out: ACUTE HYPOXIC RESPIRATORY FAILURE [ ] Ruled in diagnosis [ ] Continue to treat [ ] Resolved [ ] Ruled out diagnosis [ ] Cannot rule out diagnosis [ ] Other diagnosis [ ] Unable to determine In addition, please specify: Present on Admission (POA): [ ] Yes [ ] No [ ] Unable to determine For continuity of documentation, please document condition throughout progress notes and discharge summary. Thank You. CLINICAL INDICATORS - SIGNS / SYMPTOMS / LABS ED: pulse of 88, RR 19 satting at 97% on oxygen, no signs of distress. H & P: pulse 87, RR 16, satting at 96% noted to be in no apparent distress. PN: wean O2 as tolerated, most likely pulm edema form 3rd spacing (This form is maintained as a part of the permanent medical record) 2014 [employer]. All Rights Reserved [email or web address] [email or web address] [phone] MTDD
--- NOTE | 2017-07-26 14:13 | EKG ---
Test Reason : Blood Pressure : / mmHG Vent. Rate : 095 BPM Atrial Rate : 107 BPM P-R Int : 000 ms QRS Dur : 084 ms QT Int : 316 ms P-R-T Axes : 000 -24 173 degrees QTc Int : 397 ms Atrial fibrillation Left ventricular hypertrophy with repolarzation changes Left axis deviation Poor precorddial transition Marked ST abnormality, possible lateral subendocardial injury Abnormal ECG Confirmed by LANDRY FRANKLIN DO ([id number]), scientific editor ADALID FERNANDEZ ([id number]) on 07/26/2017 2:13:09 PM Referred By: DO FRANKLIN Confirmed By:LANDRY FRANKLIN DO
== END 2017-06-24 19:28 | disposition home health service (06) | DRG 871 ==
LOC: ERS 18:28 → ERHOLD 20:29 → 2SW 22:23 → OBSVTOIN 06-22 15:20
PROVIDERS: ADMIT Internal Medicine; ATTEND Internal Medicine
DX: A41.9 Sepsis, unspecified organism (principal); J96.01 Acute respiratory failure with hypoxia; E43 Unspecified severe protein-calorie malnutrition; C78.6 Secondary malignant neoplasm of retroperitoneum and peritoneum; R18.8 Other ascites; I11.0 Hypertensive heart disease with heart failure; I95.9 Hypotension, unspecified; I50.32 Chronic diastolic (congestive) heart failure; E87.1 Hypo-osmolality and hyponatremia; N39.0 Urinary tract infection, site not specified; Z66 Do not resuscitate; Z90.12 Acquired absence of left breast and nipple; E88.09 Other disorders of plasma-protein metabolism, not elsewhere classified; I48.2 Chronic atrial fibrillation; Z88.1 Allergy status to other antibiotic agents; Z88.2 Allergy status to sulfonamides; Z88.8 Allergy status to other drugs, medicaments and biological substances; Z91.048 Other nonmedicinal substance allergy status; Z68.23 Body mass index [BMI] 23.0-23.9, adult; E03.9 Hypothyroidism, unspecified; C50.912 Malignant neoplasm of unspecified site of left female breast; E86.0 Dehydration; Z85.068 Personal history of other malignant neoplasm of small intestine; B95.2 Enterococcus as the cause of diseases classified elsewhere
CPT/HCPCS: 36415; 36416; 51701; 71010; 71020; 74177; 76705; 80048; 80202; 81003; 81015; 82550; 82553; 83605; 83690; 84443; 84484; 85025; 85610; 85730; 87040; 87077; 87086; 87149; 87186; 93005; 96361; 96365; 96375; A4216; A4353; G8981-GP-CL; G8982-GP-CJ; J0456; J0696; J1940; J3370; J8540

== ENCOUNTER 2017-06-29 10:46 | Emergency (ER) | payer MEDICARE, OTHER ==
[2017-06-29 12:13] LABS: #Eosinphils 0.1 thou/uL (0.0-0.7); #Lymphocytes 1.3 thou/uL (1.20-3.40); #Monocytes 0.5 thou/uL (0.11-0.59); #Neutrophils 5.1 thou/uL (1.40-6.50); %Basophils 0.2 % (0.0-1.0); %Eosinophils 0.8 % (0.0-10.0); %Monocytes 7.2 % (0.0-10.0); Hematocrit 28.2 % (36.0-47.0); Mean Platelet Volume 7.5 fL (7.4-10.4); Red Blood Cell (RBC) Count 2.91 mill/uL (4.20-5.40); White Blood Cell (WBC) Count 7.1 thou/uL (4.8-10.8)
[2017-06-29] MEDS ORDERED: traMADol HCl 50 MG TAB ONE (12:27)
[2017-06-29 12:29] LABS: ALT (SGPT) 71 U/L (8-55); AST (SGOT) 36 U/L (5-34); Alkaline Phosphatase 118 U/L (40-150); Anion Gap 13 mmol/L (10-20); BUN (Urea Nitrogen) 11 mg/dL (9.8-20.1); Bilirubin, Total 0.4 mg/dL (0.2-1.2); Calc. Creatinine Clearance 0 mL/min (70-130); Calcium 8.1 mg/dL (7.8-10.44); Carbon Dioxide 24 mmol/L (23-31); Chloride 95 mmol/L (98-107); Estimated GFR-MDRD Greater than 90; Globulin 2.2 g/dL (2.4-3.5)
[2017-06-29 12:37] LABS: Bilirubin Negative (Negative); Blood, Urine Negative (Negative); Glucose, Urine (Dipstick) Negative (Negative); Ketone, Urine Negative (Negative); Nitrite Negative (Negative); Protein, Urine (Dipstick) Negative (Neg-Trace); Urobilinogen 0.2 mg/dL (0.2-1.0)
--- NOTE | 2017-06-29 13:26 | RAD ---
FRONTAL RADIOGRAPH PELVIS: DATE: 06/29/17. COMPARISON: None. HISTORY: Right hip pain. No history of fall. FINDINGS: There is a postoperative clip overlying the right hemipelvis. The pelvic ring appears intact with no widening of the sacroiliac joints of the pubic symphysis. The femoral heads project normally over t heir respectively acetabulum. Bowel suture line noted in left lower quadrant medially. IMPRESSION: No acute osseous abnormality. POS: AGUSTIN
--- NOTE | 2017-06-29 13:54 | RAD ---
TWO VIEWS RIGHT HIP: DATE: 06/29/17. HISTORY: Right hip pain. FINDINGS: There is no evidence of a fracture or dislocation. Surgical clip overlies the right hemipelvis with phleboliths also present. IMPRESSION: No acute osseous abnormality of the right hip. POS: IDANIA
== END 2017-06-29 16:40 | disposition home or self-care (01) ==
LOC: ERS 10:46
DX: M54.31 Sciatica, right side (principal); E87.1 Hypo-osmolality and hyponatremia; I48.91 Unspecified atrial fibrillation; E78.5 Hyperlipidemia, unspecified; I10 Essential (primary) hypertension; Z79.899 Other long term (current) drug therapy
CPT/HCPCS: 36415; 51701; 72170; 80053; 81003; 85025; 94760; 96360